=== PATIENT | male | born 1960 | race Two or more races ===

== ENCOUNTER 2017-02-06 10:13 | Emergency (ER) | payer MEDICAID ==
[~2017-02-06] VITALS: Ht 190.5 cm; Wt 122.5 kg
[2017-02-06] MEDS ORDERED: ETOMIDATE (2MG/ML) 20ML VIAL IV ONE (10:43)
[2017-02-06 10:59] VITALS: BP 145/91
== END 2017-02-06 12:10 | disposition home or self-care (01) ==
LOC: ER 10:13
DX: S43.005A Unspecified dislocation of left shoulder joint, initial encounter (principal); W17.2XXA Fall into hole, initial encounter; Y93.89 Activity, other specified; Y99.8 Other external cause status; Y92.89 Other specified places as the place of occurrence of the external cause
CPT/HCPCS: 23650; 73030; 99291; J7030

== ENCOUNTER 2019-08-13 11:08 | Emergency (ER) | payer MEDICAID ==
[~2019-08-13] VITALS: Ht 190.5 cm; Wt 126.6 kg
[2019-08-13 11:45] VITALS: BP 146/95
== END 2019-08-13 12:59 | disposition home or self-care (01) ==
LOC: ER 11:08
DX: M25.571 Pain in right ankle and joints of right foot (principal); Z48.01 Encounter for change or removal of surgical wound dressing

== ENCOUNTER 2019-09-01 06:49 | Emergency (ER) | payer MEDICAID ==
[~2019-09-01] VITALS: Ht 193 cm; Wt 124.7 kg
[2019-09-01 07:15] VITALS: BP 130/86
[2019-09-01] MEDS ORDERED: methylPREDNISolone SOD SUCC 125 MG/2 ML VL IM ONE (07:45)
[2019-09-01] MEDS ORDERED: LORATADINE 10 MG TAB PO ONE (07:45)
== END 2019-09-01 08:35 | disposition home or self-care (01) ==
LOC: ER 06:49
DX: R21 Rash and other nonspecific skin eruption (principal)
CPT/HCPCS: 96372; 99283; J2930

== ENCOUNTER → 2020-02-16 | Emergency (ER) | payer MEDICAID ==
[~2020-02-16] VITALS: Ht 190.5 cm; Wt 111.1 kg
[~2020-02-16] MED LIST: TETANUS-DIPTH-ACEL PERTUSSIS 0.5ML SYR Tdap IM ONE; cefTRIAXone 1GM/50ML D5W 50 ML IV ONE; cefTRIAXone W LIDOCAINE 1 GM IM IM ONE
[2020-02-16 18:28] VITALS: BP 130/88
== END | disposition short-term general hospital (02) ==
LOC: EDUNIT# 17:14 → EDBD 17:32 → ER 17:35
DX: S68.117A Complete traumatic metacarpophalangeal amputation of left little finger, initial encounter (principal); W45.8XXA Other foreign body or object entering through skin, initial encounter; Y93.89 Activity, other specified; Y92.9 Unspecified place or not applicable; Y99.9 Unspecified external cause status
CPT/HCPCS: 90471; 96374; 99285; J0696; 90715

== ENCOUNTER 2022-10-05 11:47 | Emergency (ER) | payer MEDICAID ==
[~2022-10-05] VITALS: Ht 190.5 cm; Wt 98.1 kg
[2022-10-05 14:42] LABS: Basophils # (auto) 0 10 ^3/uL (0-0.2); Basophils % (auto) 0.5 % (0.0-2.0); Eosinophils # (auto) 0 10 ^3/uL (0-0.8); Eosinophils % (auto) 0.3 % (0.0-7.0); Hematocrit 48.2 % (41.0-53.0); Hemoglobin 16.2 g/dL (13.5-17.5); Mean Corpuscular Hemoglobin 31.8 pg (28.0-32.0); Mean Corpuscular Hgb Conc. 33.7 g/dL (32.0-36.0); Mean Corpuscular Volume 94.4 fL (80.0-100.0); Monocytes # (auto) 0.4 10 ^3/uL (0-1.3); Monocytes % (auto) 5.5 % (0.0-12.0); Neutrophils # (auto) 4.6 10 ^3/uL (1.6-8.6); Neutrophils % (auto) 64.7 % (37.0-80.0); Nucleated Red Blood Cells % 0.1 %; Red Cell Distribution Width 13.3 % (11.8-14.3)
[2022-10-05 14:55] LABS: Calcium 9.2 mg/dL (8.5-10.1); Potassium 4.2 mmol/L (3.5-5.1)
[2022-10-05 14:55] LABS: Urine Bacteria NONE SEEN /hpf (None Seen); Urine Blood Negative /uL (Negative); Urine Specific Gravity 1.016 (1.001-1.035); Urine WBC 1 /hpf (0 - 3)
[2022-10-05 14:58] LABS: Albumin 4.4 g/dL (3.4-5.0); BUN/Creatinine Ratio 12.1
[2022-10-05 15:01] LABS: Bilirubin, Total 0.8 mg/dL (0.2-1.0); Total Protein 7.9 g/dL (6.4-8.2)
[2022-10-05] MEDS ORDERED: PANT40TA2 PO (15:07)
[2022-10-05] MEDS ORDERED: PRED10TA PO (15:07)
[2022-10-05] MEDS ORDERED: HYDR-4902 PO (15:07)
[2022-10-05] MEDS ORDERED: HYDROmorphone HCL 2 MG/ML VL/or syr IM ONE (15:15)
[2022-10-05] MEDS ORDERED: ONDANSETRON ODT 4 MG TAB PO ONE (15:15)
[2022-10-05 21:47] VITALS: BP 132/72
== END 2022-10-05 22:04 | disposition home or self-care (01) ==
LOC: ER 11:47
DX: M51.9 Unspecified thoracic, thoracolumbar and lumbosacral intervertebral disc disorder (principal); M54.50 Low back pain, unspecified
CPT/HCPCS: 36415; 72131; 74176; 80053; 81001; 82962; 84484; 85025; 96372; 99284; J1170; Q0162

== ENCOUNTER 2023-05-22 18:19 | Emergency (ER) | payer MEDICAID ==
[~2023-05-22] VITALS: Ht 190.5 cm; Wt 92.0 kg
[~2023-05-22 18:19] MED LIST changes: +HYDR-4902 PO; +PANT40TA2 PO; +PRED10TA PO; -TETANUS-DIPTH-ACEL PERTUSSIS 0.5ML SYR Tdap IM ONE; -cefTRIAXone 1GM/50ML D5W 50 ML IV ONE; -cefTRIAXone W LIDOCAINE 1 GM IM IM ONE
[2023-05-22 18:31] VITALS: BP 138/86
[2023-05-22] MEDS ORDERED: DIPH25CA66 PO (19:35)
[2023-05-22] MEDS ORDERED: diphenhdrAMINE HCL 25 MG CAP PO ONE (19:45)
== END 2023-05-22 21:03 | disposition home or self-care (01) ==
LOC: ER 18:19
DX: T78.40XA Allergy, unspecified, initial encounter (principal); E11.9 Type 2 diabetes mellitus without complications; F17.210 Nicotine dependence, cigarettes, uncomplicated; R10.9 Unspecified abdominal pain; L29.9 Pruritus, unspecified; M79.651 Pain in right thigh; Z79.1 Long term (current) use of non-steroidal anti-inflammatories (NSAID); Z79.899 Other long term (current) drug therapy; X58.XXXA Exposure to other specified factors, initial encounter

== ENCOUNTER 2024-03-03 15:58 | Emergency (ER) | payer MEDICAID ==
[~2024-03-03] VITALS: Ht 193 cm; Wt 82.5 kg
[~2024-03-03 15:58] MED LIST changes: +DIPH25CA66 PO
[2024-03-03 22:22] VITALS: BP 133/81; PULSE 84; RESP 16; TEMP 99.5; O2SAT 99
[2024-03-03] MEDS ORDERED: OFL50TS OT (23:01)
[2024-03-03] MEDS ORDERED: IBUP1TAB5 PO (23:01)
[2024-03-03] MEDS ORDERED: AUG875T PO (23:01)
[2024-03-03] MEDS ORDERED: CYCL-839 PO (23:01)
[2024-03-03] MEDS: HYDROcodone-ACET 5/325MG TAB PO ONE (23:37)
== END 2024-03-03 23:38 | disposition home or self-care (01) ==
LOC: ER 15:58
DX: M25.511 Pain in right shoulder (principal); M25.561 Pain in right knee; M62.830 Muscle spasm of back; H66.91 Otitis media, unspecified, right ear; E11.9 Type 2 diabetes mellitus without complications; F17.210 Nicotine dependence, cigarettes, uncomplicated
CPT/HCPCS: 72100; 73030; 73562

== ENCOUNTER 2024-07-09 12:01 | Inpatient (IN) | payer MEDICAID ==
[~2024-07-09] VITALS: Ht 172.7 cm; Wt 73.7 kg
[~2024-07-09 12:01] MED LIST changes: +AUG875T PO; +CYCL-839 PO; +IBUP1TAB5 PO; +OFL50TS OT
[2024-07-09 12:45] VITALS: PULSE 78; RESP 12; O2SAT 100
[2024-07-09 13:08] LABS: Basophils # (auto) 0 10 ^3/uL (0-0.2); Basophils % (auto) 0.5 % (0.0-2.0); Eosinophils # (auto) 0 10 ^3/uL (0-0.8); Eosinophils % (auto) 0.1 % (0.0-7.0); Hematocrit 38.7 % (41.0-53.0); Hemoglobin 13.4 g/dL (13.5-17.5); Lymphocytes # (auto) 1.5 10 ^3/uL (0.4-5.4); Lymphocytes % (auto) 33.8 % (10.0-50.0); Mean Corpuscular Hemoglobin 32.6 pg (28.0-32.0); Mean Corpuscular Hgb Conc. 34.7 g/dL (32.0-36.0); Mean Corpuscular Volume 93.7 fL (80.0-100.0); Monocytes # (auto) 0.3 10 ^3/uL (0-1.3); Monocytes % (auto) 5.8 % (0.0-12.0); Neutrophils # (auto) 2.6 10 ^3/uL (1.6-8.6); Neutrophils % (auto) 59.8 % (37.0-80.0); Nucleated Red Blood Cells % 0.1 %; Platelet Count (auto) 225 10^3/uL (140-450); Red Blood Cells 4.13 10^6/uL (4.5-5.90); Red Cell Distribution Width 13.7 % (11.8-14.3); White Blood Cell 4.4 10^3/uL (4.4-10.8)
[2024-07-09 13:24] LABS: Alanine Aminotransferase 10 U/L (7-40); Alkaline Phosphatase 45 U/L (46-116); Anion Gap 5 (5-15); Aspartate Aminotransferase 9 U/L (13-40); BUN/Creatinine Ratio 14.9 (10.0-20.0); Blood Urea Nitrogen 11 mg/dL (9-23); Calcium 9.6 mg/dL (8.7-10.4); Carbon Dioxide 27 mmol/L (20-30); Chloride 108 mmol/L (98-107); Glucose 118 mg/dL (74-106); Lipase 32 U/L (12-53); Potassium 3.8 mmol/L (3.5-5.1); Sodium 140 mmol/L (136-145)
[2024-07-09 13:25] LABS: Total Protein 6.7 g/dL (5.7-8.2)
[2024-07-09] MEDS: ONDANSETRON HCL 4 MG/2 ML VIAL IV ONE (14:48)
[2024-07-09] MEDS: SODIUM CHLORIDE 0.9% 1,000 ML IV ONE (14:48)
[2024-07-09] MEDS: MORPHINE SULFATE 4 MG/ML SYR/VIAL IV ONE (14:50)
[2024-07-09] MEDS: IOHEXOL 300 MG/ML 100ML BOTTLE IJ ONE (14:50)
[2024-07-09] MEDS ORDERED: ONDANSETRON HCL 4 MG/2 ML VIAL IV PRN (17:00)
[2024-07-09] MEDS ORDERED: ACETAMINOPHEN 325 MG TAB PO PRN (17:00)
[2024-07-09] MEDS: HYDROmorphone HCL 2 MG/ML VL/or syr IV PRN (17:42)
[2024-07-09 19:30] VITALS: PULSE 84; RESP 12; O2SAT 100
[2024-07-09] MEDS: SODIUM CHLOR 0.9% PF (SALINE LOCK) 10ML VIAL/SYR IV SCH (22:09)
[2024-07-10] VITALS (8 sets, daily range): BP systolic 94–129; BP diastolic 70–85; PULSE 72–82; RESP 16–20; TEMP 97.6–98.4; O2SAT 96–100
[2024-07-10] MEDS ORDERED: TRAM50TA2 PO (03:30)
[2024-07-10] MEDS ORDERED: METF-371 PO (03:30)
[2024-07-10] MEDS ORDERED: GABA-339 PO (03:30)
[2024-07-10] MEDS ORDERED: METF-1145 PO (03:30)
[2024-07-10 07:16] LABS: Basophils # (auto) 0 10 ^3/uL (0-0.2); Basophils % (auto) 0.9 % (0.0-2.0); Eosinophils # (auto) 0 10 ^3/uL (0-0.8); Eosinophils % (auto) 1.1 % (0.0-7.0); Hematocrit 39.3 % (41.0-53.0); Hemoglobin 13.6 g/dL (13.5-17.5); Lymphocytes % (auto) 47.1 % (10.0-50.0); Mean Corpuscular Hemoglobin 32.5 pg (28.0-32.0); Mean Corpuscular Hgb Conc. 34.5 g/dL (32.0-36.0); Mean Corpuscular Volume 94.3 fL (80.0-100.0); Monocytes # (auto) 0.3 10 ^3/uL (0-1.3); Monocytes % (auto) 6.2 % (0.0-12.0); Neutrophils # (auto) 1.9 10 ^3/uL (1.6-8.6); Neutrophils % (auto) 44.7 % (37.0-80.0); Nucleated Red Blood Cells % 0.1 %; Platelet Count (auto) 214 10^3/uL (140-450); Red Blood Cells 4.17 10^6/uL (4.5-5.90); Red Cell Distribution Width 13.6 % (11.8-14.3); White Blood Cell 4.3 10^3/uL (4.4-10.8)
[2024-07-10 07:30] LABS: Alkaline Phosphatase 45 U/L (46-116); Anion Gap 4 (5-15); Aspartate Aminotransferase 8 U/L (13-40); BUN/Creatinine Ratio 11.7 (10.0-20.0); Blood Urea Nitrogen 9 mg/dL (9-23); Calcium 9.4 mg/dL (8.7-10.4); Carbon Dioxide 27 mmol/L (20-30); Chloride 109 mmol/L (98-107); Glucose 122 mg/dL (74-106); Potassium 3.5 mmol/L (3.5-5.1); Sodium 140 mmol/L (136-145)
[2024-07-10 07:31] LABS: Bilirubin, Total 0.9 mg/dL (0.2-1.0); Total Protein 6.5 g/dL (5.7-8.2)
[2024-07-10 07:44] LABS: Alanine Aminotransferase < 9 U/L (7-40)
[2024-07-10] MEDS: HYDROcodone-ACET 5/325MG TAB PO PRN (07:57)
[2024-07-10] MEDS: ENOXAPARIN SOD 40 MG/0.4 ML SYRINGE SC SCH (09:48)
[2024-07-10 11:54] LABS: Folate (Folic Acid) 14.19 ng/mL (>5.38)
[2024-07-11] VITALS (7 sets, daily range): BP systolic 105–127; BP diastolic 68–84; PULSE 68–87; RESP 18–22; TEMP 97.5–98.4; O2SAT 98–100
[2024-07-11 06:14] LABS: Basophils # (auto) 0 10 ^3/uL (0-0.2); Basophils % (auto) 0.5 % (0.0-2.0); Eosinophils # (auto) 0.1 10 ^3/uL (0-0.8); Eosinophils % (auto) 1.7 % (0.0-7.0); Hematocrit 37.9 % (41.0-53.0); Hemoglobin 13.1 g/dL (13.5-17.5); Lymphocytes # (auto) 1.8 10 ^3/uL (0.4-5.4); Mean Corpuscular Hemoglobin 32.8 pg (28.0-32.0); Mean Corpuscular Hgb Conc. 34.7 g/dL (32.0-36.0); Mean Corpuscular Volume 94.7 fL (80.0-100.0); Monocytes # (auto) 0.3 10 ^3/uL (0-1.3); Monocytes % (auto) 6.2 % (0.0-12.0); Neutrophils # (auto) 1.9 10 ^3/uL (1.6-8.6); Neutrophils % (auto) 46.6 % (37.0-80.0); Nucleated Red Blood Cells % 0.1 %; Platelet Count (auto) 209 10^3/uL (140-450); Red Cell Distribution Width 13.9 % (11.8-14.3); White Blood Cell 4.1 10^3/uL (4.4-10.8)
[2024-07-11 06:32] LABS: Albumin 3.7 g/dL (3.2-4.8); Alkaline Phosphatase 41 U/L (46-116); Anion Gap 5 (5-15); Aspartate Aminotransferase 11 U/L (13-40); BUN/Creatinine Ratio 13.6 (10.0-20.0); Blood Urea Nitrogen 9 mg/dL (9-23); Carbon Dioxide 28 mmol/L (20-30); Chloride 107 mmol/L (98-107); Glucose 122 mg/dL (74-106); Potassium 3.4 mmol/L (3.5-5.1); Sodium 140 mmol/L (136-145)
[2024-07-11 06:33] LABS: Bilirubin, Total 0.8 mg/dL (0.2-1.0); Total Protein 6.2 g/dL (5.7-8.2)
[2024-07-11 06:41] LABS: Alanine Aminotransferase < 9 U/L (7-40)
[2024-07-11 07:34] LABS: Urine Bacteria FEW /hpf (None Seen); Urine Blood Negative /uL (Negative); Urine Clarity Clear (Clear); Urine Color Light-Yellow (Yellow); Urine Mucus FEW (None Seen); Urine Protein, UAD Negative (Negative); Urine Specific Gravity 1.014 (1.001-1.035); Urine Urobilinogen Normal (Negative); Urine WBC 11 /hpf (0 - 3); Urine pH 6.5 (5.0-9.0)
[2024-07-11 08:06] LABS: AFP Serum Tumor Marker 1.9 ng/mL (0.0-8.4); PSA Free 0.06 ng/mL; Prostate Specific Antigen 0.3 ng/mL (0.0-4.0)
[2024-07-11] MEDS: POTASSIUM CHL 20 Meq TABLET PO ONE (09:14)
[2024-07-11] MEDS: MORPHINE SULFATE INJ 2 MG/ml SYRG IV PRN (14:42)
[2024-07-11] MEDS: DOCUSATE SOD 100 MG CAP PO PRN (15:28)
[2024-07-12] VITALS (7 sets, daily range): BP systolic 101–135; BP diastolic 69–86; PULSE 69–85; RESP 18–22; TEMP 97.8–98.3; O2SAT 99–100
[2024-07-12 06:42] LABS: Basophils # (auto) 0 10 ^3/uL (0-0.2); Basophils % (auto) 0.6 % (0.0-2.0); Eosinophils # (auto) 0.1 10 ^3/uL (0-0.8); Eosinophils % (auto) 1.8 % (0.0-7.0); Hematocrit 37.7 % (41.0-53.0); Hemoglobin 13.6 g/dL (13.5-17.5); Lymphocytes # (auto) 2.1 10 ^3/uL (0.4-5.4); Lymphocytes % (auto) 50.6 % (10.0-50.0); Mean Corpuscular Hemoglobin 33.7 pg (28.0-32.0); Mean Corpuscular Volume 93.5 fL (80.0-100.0); Monocytes # (auto) 0.3 10 ^3/uL (0-1.3); Monocytes % (auto) 7.2 % (0.0-12.0); Neutrophils # (auto) 1.7 10 ^3/uL (1.6-8.6); Neutrophils % (auto) 39.8 % (37.0-80.0); Nucleated Red Blood Cells % 0.1 %; Platelet Count (auto) 202 10^3/uL (140-450); Red Blood Cells 4.03 10^6/uL (4.5-5.90); White Blood Cell 4.2 10^3/uL (4.4-10.8)
[2024-07-12 07:07] LABS: Albumin 3.9 g/dL (3.2-4.8); Alkaline Phosphatase 43 U/L (46-116); Anion Gap 5 (5-15); BUN/Creatinine Ratio 8.5 (10.0-20.0); Blood Urea Nitrogen 6 mg/dL (9-23); Calcium 9.7 mg/dL (8.7-10.4); Carbon Dioxide 27 mmol/L (20-30); Chloride 106 mmol/L (98-107); Glucose 125 mg/dL (74-106); Potassium 3.8 mmol/L (3.5-5.1); Sodium 138 mmol/L (136-145)
[2024-07-12 07:08] LABS: Aspartate Aminotransferase 10 U/L (13-40); Bilirubin, Total 0.8 mg/dL (0.2-1.0); Total Protein 6.3 g/dL (5.7-8.2)
[2024-07-12 07:10] LABS: Alanine Aminotransferase < 9 U/L (7-40)
[2024-07-12] MEDS ORDERED: IOHEXOL 300 MG/ML 100ML BOTTLE IJ ONE (12:25)
[2024-07-12] MEDS ORDERED: traMADol HCL 50 MG TAB PO PRN (13:45)
[2024-07-12] MEDS ORDERED: GABAPENTIN 300 MG CAP PO SCH (14:00)
[2024-07-12] MEDS ORDERED: GADOTERATE MEG 7.5 MMOL/15ml INJ (0.5MMOL/ml) IV ONE (15:24)
[2024-07-12] MEDS: GABAPENTIN 300 MG CAP PO SCH (16:38)
[2024-07-13 01:00] VITALS: BP 94/64; PULSE 77; RESP 18; TEMP 97.6; O2SAT 100
[2024-07-13 05:00] VITALS: BP 116/77; PULSE 76; RESP 16; TEMP 98.1; O2SAT 99
[2024-07-13 07:06] LABS: Basophils # (auto) 0 10 ^3/uL (0-0.2); Basophils % (auto) 0.4 % (0.0-2.0); Eosinophils # (auto) 0.1 10 ^3/uL (0-0.8); Eosinophils % (auto) 1.4 % (0.0-7.0); Hematocrit 37.6 % (41.0-53.0); Hemoglobin 13.2 g/dL (13.5-17.5); Lymphocytes # (auto) 2.3 10 ^3/uL (0.4-5.4); Lymphocytes % (auto) 46.9 % (10.0-50.0); Mean Corpuscular Hemoglobin 33.6 pg (28.0-32.0); Mean Corpuscular Hgb Conc. 35.3 g/dL (32.0-36.0); Mean Corpuscular Volume 95.2 fL (80.0-100.0); Monocytes # (auto) 0.3 10 ^3/uL (0-1.3); Monocytes % (auto) 6.2 % (0.0-12.0); Neutrophils # (auto) 2.3 10 ^3/uL (1.6-8.6); Neutrophils % (auto) 45.1 % (37.0-80.0); Platelet Count (auto) 212 10^3/uL (140-450); Red Blood Cells 3.94 10^6/uL (4.5-5.90); Red Cell Distribution Width 13.5 % (11.8-14.3)
[2024-07-13 07:18] LABS: Albumin 4.1 g/dL (3.2-4.8); Alkaline Phosphatase 44 U/L (46-116); Anion Gap 3 (5-15); Aspartate Aminotransferase 8 U/L (13-40); BUN/Creatinine Ratio 10.5 (10.0-20.0); Blood Urea Nitrogen 8 mg/dL (9-23); Calcium 9.2 mg/dL (8.7-10.4); Carbon Dioxide 29 mmol/L (20-30); Chloride 108 mmol/L (98-107); Glucose 118 mg/dL (74-106); Magnesium 2.1 mg/dL (1.6-2.6); Potassium 3.8 mmol/L (3.5-5.1); Sodium 140 mmol/L (136-145)
[2024-07-13 07:19] LABS: Bilirubin, Total 0.6 mg/dL (0.2-1.0); Total Protein 6.4 g/dL (5.7-8.2)
[2024-07-13 07:40] LABS: Alanine Aminotransferase < 9 U/L (7-40)
[2024-07-13 09:00] VITALS: BP 124/80; PULSE 69; RESP 20; TEMP 98.3; O2SAT 99
[2024-07-13 12:41] VITALS: BP 109/69; PULSE 83; RESP 17; TEMP 98.7; O2SAT 95
[2024-07-13] MEDS: HYDROcodone-ACET 7.5/325MG TAB PO PRN (16:42)
[2024-07-13 17:08] VITALS: BP 110/68; PULSE 85; RESP 17; TEMP 98.3; O2SAT 99
[2024-07-13 17:34] VITALS: BP 109/69; PULSE 83; RESP 17; TEMP 98.7; O2SAT 95
== END 2024-07-13 18:48 | disposition home or self-care (01) | DRG 347 ==
LOC: ER 12:01 → EDBD 12:01 → OVERFLOW 16:56 → EAST 23:52 → OVERFLOW 07-10 00:05 → WEST WING 07-10 01:40
PROVIDERS: ATTEND Internal Medicine Geriatric Medicine
DX: M48.07 Spinal stenosis, lumbosacral region (principal); K76.89 Other specified diseases of liver; E11.9 Type 2 diabetes mellitus without complications; D75.89 Other specified diseases of blood and blood-forming organs; D18.03 Hemangioma of intra-abdominal structures; F17.210 Nicotine dependence, cigarettes, uncomplicated; M51.36 Other intervertebral disc degeneration, lumbar region; M47.896 Other spondylosis, lumbar region; K59.00 Constipation, unspecified; Z79.84 Long term (current) use of oral hypoglycemic drugs; Z79.899 Other long term (current) drug therapy
CPT/HCPCS: 36415; 71046; 71260; 72146; 72148; 74177; 74183; 80053; 81001; 82105; 82378; 82607; 82746; 82962; 83036; 83690; 83735; 84154; 84443; 84484; 85025; 86301; 93005; 96374; 96375; G0378; J2405

== ENCOUNTER 2024-08-25 17:44 | Emergency (ER) | payer MEDICAID ==
[~2024-08-25] VITALS: Ht 193 cm; Wt 65.0 kg
[~2024-08-25 17:44] MED LIST changes: -AUG875T PO; -CYCL-839 PO; -DIPH25CA66 PO; +GABA-339 PO; +METF-371 PO; -OFL50TS OT; -PRED10TA PO
[2024-08-25 20:31] LABS: Basophils # (auto) 0 10 ^3/uL (0-0.2); Basophils % (auto) 0.6 % (0.0-2.0); Eosinophils # (auto) 0 10 ^3/uL (0-0.8); Eosinophils % (auto) 0.7 % (0.0-7.0); Hematocrit 40.5 % (41.0-53.0); Hemoglobin 13.6 g/dL (13.5-17.5); Lymphocytes # (auto) 2.3 10 ^3/uL (0.4-5.4); Lymphocytes % (auto) 46.9 % (10.0-50.0); Mean Corpuscular Hemoglobin 32.2 pg (28.0-32.0); Mean Corpuscular Hgb Conc. 33.5 g/dL (32.0-36.0); Monocytes # (auto) 0.3 10 ^3/uL (0-1.3); Monocytes % (auto) 5.1 % (0.0-12.0); Neutrophils # (auto) 2.3 10 ^3/uL (1.6-8.6); Neutrophils % (auto) 46.7 % (37.0-80.0); Nucleated Red Blood Cells % 0.1 %; Platelet Count (auto) 217 10^3/uL (140-450); Red Blood Cells 4.22 10^6/uL (4.5-5.90); Red Cell Distribution Width 13.5 % (11.8-14.3)
[2024-08-25 20:40] LABS: Albumin 4.5 g/dL (3.2-4.8); Alkaline Phosphatase 51 U/L (46-116); Anion Gap 5 (5-15); Aspartate Aminotransferase 10 U/L (13-40); BUN/Creatinine Ratio 20.7 (10.0-20.0); Blood Urea Nitrogen 17 mg/dL (9-23); Calcium 9.7 mg/dL (8.7-10.4); Carbon Dioxide 27 mmol/L (20-31); Chloride 108 mmol/L (98-107); Glucose 100 mg/dL (74-106); Potassium 3.6 mmol/L (3.5-5.1); Sodium 140 mmol/L (136-145)
[2024-08-25 20:41] LABS: Bilirubin, Total 0.6 mg/dL (0.2-1.0); Total Protein 7.1 g/dL (5.7-8.2)
[2024-08-25 20:46] LABS: Alanine Aminotransferase 14 U/L (7-40)
[2024-08-25] MEDS ORDERED: GABA-1250 PO (21:49)
[2024-08-25] MEDS ORDERED: HYDROcodone-ACET 5/325MG TAB PO ONE (22:00)
[2024-08-25 22:14] VITALS: BP 167/93; PULSE 83; RESP 18; TEMP 98.5; O2SAT 97
[2024-08-25] MEDS: KETOROLAC TROMETH 60MG/2ML VIAL IM ONE (22:29)
== END 2024-08-25 22:32 | disposition home or self-care (01) ==
LOC: EDBD 17:44 → ER 17:44
DX: E11.40 Type 2 diabetes mellitus with diabetic neuropathy, unspecified (principal); R07.89 Other chest pain; M79.89 Other specified soft tissue disorders; Z79.84 Long term (current) use of oral hypoglycemic drugs; Z79.899 Other long term (current) drug therapy
CPT/HCPCS: 36415; 80053; 85025; 96372; 99283; J1885

== ENCOUNTER 2025-01-19 02:53 | Inpatient (IN) | payer MEDICAID ==
[~2025-01-19] VITALS: Ht 175.3 cm; Wt 73.2 kg
[~2025-01-19 02:53] MED LIST changes: +GABA-1250 PO
[2025-01-19] MEDS: IOHEXOL 300 MG/ML 100ML BOTTLE IJ ONE (03:41)
--- NOTE | 2025-01-19 03:50 | ED.PDOC ---
History of Present Illness HPI Comments 64 y/o M, with a history of DMII and H. Pylori, is BIBA for c/o abdominal pain, nausea, vomiting, and poor appetite, today. Per EMS report, patient is a Swedish speaker and endorses on having ongoing symptoms, that worsened, this morning, following unprovoked onset for the past 5x days. He comments on his pain being localized to his bilateral lower quadrants and it being non-radiating, describes it a pressure-like in quality, and rates it a 10/10 in severity. Patient further reports on vomiting "whenever he drinks fluids at night, only" and not eating anything for 5x days, due to poor appetite. Patients vitals were reported to have been stable and within normal limits, with a blood glucose of 130. He denies any hematemesis, diarrhea, constipation, urinary symptoms, fever, chills, or other associated symptoms or modifiers at this time. Chief Complaint: Abdominal Pain Time Seen by MD: 03:30 Primary Care Provider: UNKNOWN Reviewed Notes: Nurses Notes, Emulsion Operator Notes, Medications, Allergies Allergies: Coded Allergies: NO KNOWN ALLERGIES (Unverified , 10/26/10) Home Meds Active Scripts Gabapentin (Gabapentin) 300 Mg Cap, 1 CAP PO TID for 30 Days, #90 CAP 5 Refills Prov:JOSE LUIS MOYA MD 08/25/24 Ibuprofen Micronized (Ibuprofen) 600 Mg Tab, 1 TAB PO Q8HPRN PRN, #20 TAB As needed for pain Prov:MODESTO GREEN Q RANGE MASTER 03/03/24 Hydrocodone-Acetaminophen (Hydrocodone Bitartrate/AC 5-325 mg) 1 Tab Tab, 1 TAB PO DAILY for 5 Days, #5 TAB Prov:SUZY GALE MD 10/05/22 Pantoprazole Sodium Sesquihydr (Protonix) 40 Mg Tab, 40 MG PO DAILY for 10 Days, #10 TAB Prov:SUZY GALE MD 10/05/22 Reported Medications Gabapentin (Gabapentin) 600 Mg Tab, 1 TAB PO TID 07/10/24 Metformin Hydrochloride (Metformin Hcl) 850 Mg Tab, 1 TAB PO BID 07/10/24 Information Source: Patient, Emergency Med Personnel Mode of Arrival: EMS Severity: Moderate Timing: Days Duration: Since onset Prehospital treatment: 12 Lead EKG, Rn Radiology Past Medical History PAST MEDICAL HISTORY: DM (type II) Past Medical History (Other): H. Pylori DDD Surgical History: Denies all surgeries Family History Family History: Reviewed,noncontributory to illness Social History Smoker: Cigarettes Alcohol: Occasionally Drugs: Denies Drug Use Lives In: Home Gastrointestinal: reports: abdominal pain, nausea, poor appetite, vomiting All Other Systems: Reviewed and Negative (negative unless otherwise stated above or in HPI) Physical Exam General Appearance: No Apparent Distress, Other (chronically ill-appearing ) HEENT: Normal ENT Inspection, Pharynx Normal, TMs Normal Neck: Full Range of Motion, Non-Tender, Normal, Normal Inspection Respiratory: Chest Non-Tender, Lungs Clear, No Accessory Muscle Use, No Respiratory Distress, Normal Breath Sounds Cardiovascular: No Edema, No JVD, No Murmur, No Gallop, Normal Peripheral Pulse s, Regular Rate/Rhythm Breast Exam: Deferred Gastrointestinal: No Organomegaly, Non Tender, No Pulsatile Mass, Normal Bowel Sounds, Soft Genitalia: Deferred Pelvic: Deferred Rectal: Deferred Extremities: No calf tenderness, Normal capillary refill, Normal inspection, Normal range of motion, Non-tender, No pedal edema Musculoskeletal : Apperance: Normal Neurologic: Alert, brush cutter II-XII nml as Tested, No Motor Deficits, Normal Affect, Normal Mood, No Sensory Deficits Cerebellar Function: Normal Reflexes: Normal Skin: Dry, Normal Color, Warm Lymphatic: No Adenopathy Was a procedure done? Was a procedure done?: No Differential Dx Considerations may include: gastritis, gastroenteritis, PID, bowl obstruction, diverticulitis, appendicitis, cystitis, nephrolithiasis, malnutrition, dehydration X-Ray, Labs, Meds, VS Vital Signs Date Time Temp Pulse Resp B/P (MAP) Pulse Ox O2 Delivery O2 Flow Rate FiO2 01/19/25 04:31 70 17 134/92 01/19/25 04:28 98.1 70 17 134/92 (106) 98 98.1 01/19/25 04:17 98.6 72 16 133/82 (99) 96 98.6 01/19/25 04:17 72 16 96 Room Air 01/19/25 03:14 98.6 72 16 133/82 (99) 96 Lab Test 01/19/25 03:37 Range/Units White Blood Count 6.1 4.4-10.8 10^3/uL Red Blood Count 4.60 4.5-5.90 10^6/uL Hemoglobin 15.3 13.5-17.5 g/dL Hematocrit 43.7 41.0-53.0 % Mean Corpuscular Volume 95.0 80.0-100.0 fL Mean Corpuscular Hemoglobin 33.4 H 28.0-32.0 pg Mean Corpuscular Hemoglobin Concent 35.1 32.0-36.0 g/dL Red Cell Distribution Width 13.4 11.8-14.3 % Platelet Count 218 140-450 10^3/uL Mean Platelet Volume 8.1 6.9-10.8 fL Neutrophils (%) (Auto) 58.1 37.0-80.0 % Lymphocytes (%) (Auto) 35.4 10.0-50.0 % Monocytes (%) (Auto) 6.2 0.0-12.0 % Eosinophils (%) (Auto) 0.1 0.0-7.0 % Basophils (%) (Auto) 0.2 0.0-2.0 % Neutrophils # (Auto) 3.5 1.6-8.6 10 ^3/uL Lymphocytes # (Auto) 2.1 0.4-5.4 10 ^3/uL Monocytes # (Auto) 0.4 0-1.3 10 ^3/uL Eosinophils # (Auto) 0 0-0.8 10 ^3/uL Basophils # (Auto) 0 0-0.2 10 ^3/uL Nucleated Red Blood Cells 0.1 % Sodium Level 137 136-145 mmol/L Potassium Level 2.4 *L 3.5-5.1 mmol/L Chloride Level 94 L 98-107 mmol/L Carbon Dioxide Level 31 20-31 mmol/L Anion Gap 12 5-15 Blood Urea Nitrogen 12 9-23 mg/dL Creatinine 0.73 0.700-1.30 mg/dL Glomerular Filtration Rate Calc 102 >90 mL/min BUN/Creatinine Ratio 16.4 10.0-20.0 Serum Glucose 134 H 74-106 mg/dL Calcium Level 10.4 8.7-10.4 mg/dL Total Bilirubin 1.5 H 0.2-1.0 mg/dL Aspartate Amino Transferase (AST) 13 13-40 U/L Alanine Aminotransferase (ALT) 11 7-40 U/L Alkaline Phosphatase 52 46-116 U/L Total Protein 7.8 5.7-8.2 g/dL Albumin 4.9 H 3.2-4.8 g/dL Lipase 38 12-53 U/L Current Medications Medications (Trade) Dose Ordered Sig/Devan Route Start Time Stop Time Status Last Admin Sodium Chloride 1,000 ml @ 1,000 mls/hr Q1H ONCE IV 01/19/25 03:30 01/19/25 04:29 DC 01/19/25 04:17 Ondansetron HCl (Zofran) 4 mg ONCE ONCE IV 01/19/25 03:30 01/19/25 03:31 DC 01/19/25 04:26 Morphine Sulfate 4 mg ONCE ONCE IV 01/19/25 03:30 01/19/25 03:31 DC 01/19/25 04:31 Time of 1ST Reevaluation: 04:00 Reevaluation 1ST: Unchanged Patient Education/Counseling: Diagnosis, Treatment Family Education/Counseling: No Family Present Departure 1 Departure Time of Disposition: 05:45 (Patient presented with abdominal pain that was concerning for possible appendicits, gastritis, cholecystitis, colitis, gastroenteritis, sbo, or orther possible surgical emergency. Data: 1. I ordered and reviewed the result of at least 3 labs including a CBC, BMP, and Urinalysis. 2. I independently interpreted the following tests: CT Abdoment and Pelvis is concerning for a dilated CBD .Risk:This patient has a high risk of morbidity due to further diagnostic testing or treatment and may suffer from an acute abdominal process disorder. Workup reveals intractable abdominal pain and dilated CBD. We will admit patient for MRCP and patient should be admitted for further workup. and possible expert consultation. ) Impression: Primary Impression: Intractable abdominal pain Additional Impression: Projectile vomiting with nausea Disposition: ADMITTED INPATIENT Admit to: Med Surg Condition: Serious Critical Care Note Critical Care Time?: Yes Critical care comment: Intractable abdominal pain Authorized and Performed by: Jose Estrada MD Total critical care time: Approximately 44 minutes Due to a high probability of clinically significant, life threatening deterioration, the patient required my highest level of preparedness to intervene emergently and I personally spent this critical care time directly and personally managing the patient. This critical care time included obtaining a history; examining the patient; pulse oximetry; ordering and review of studies; arranging urgent treatment with development of a management plan; evaluation of patient's response to treatment; frequent reassessment; and, discussions with other providers. This critical care time was performed to assess and manage the high probability of imminent, life-threatening deterioration that could result in multi-organ failure. It was exclusive of separately billable procedures and treating other patients and teaching time. Please see my other sections and the rest of the note for further information on patient assessment and treatment. Stability Stability form required: No Heart Score Heart Score: Heart Score Response (Comments) Value History N/A 0 EKG N/A 0 Age N/A 0 Risk Factors N/A 0 Troponin N/A 0 Total 0 I personally scribed for JOSE ESTRADA MD ([email or web address]) on 01/19/25 at 03:50. Electronically submitted by Stanley Marie ([email or web address]). JOSE ESTRADA MD Jan 19, 2025 03:50
[2025-01-19 04:01] LABS: Basophils # (auto) 0 10 ^3/uL (0-0.2); Basophils % (auto) 0.2 % (0.0-2.0); Eosinophils # (auto) 0 10 ^3/uL (0-0.8); Eosinophils % (auto) 0.1 % (0.0-7.0); Hematocrit 43.7 % (41.0-53.0); Hemoglobin 15.3 g/dL (13.5-17.5); Lymphocytes # (auto) 2.1 10 ^3/uL (0.4-5.4); Lymphocytes % (auto) 35.4 % (10.0-50.0); Mean Corpuscular Hemoglobin 33.4 pg (28.0-32.0); Mean Corpuscular Hgb Conc. 35.1 g/dL (32.0-36.0); Monocytes # (auto) 0.4 10 ^3/uL (0-1.3); Monocytes % (auto) 6.2 % (0.0-12.0); Neutrophils # (auto) 3.5 10 ^3/uL (1.6-8.6); Neutrophils % (auto) 58.1 % (37.0-80.0); Nucleated Red Blood Cells % 0.1 %; Platelet Count (auto) 218 10^3/uL (140-450); Red Cell Distribution Width 13.4 % (11.8-14.3); White Blood Cell 6.1 10^3/uL (4.4-10.8)
[2025-01-19 04:16] LABS: Alanine Aminotransferase 11 U/L (7-40); Alkaline Phosphatase 52 U/L (46-116); Anion Gap 12 (5-15); Aspartate Aminotransferase 13 U/L (13-40); BUN/Creatinine Ratio 16.4 (10.0-20.0); Blood Urea Nitrogen 12 mg/dL (9-23); Calcium 10.4 mg/dL (8.7-10.4); Carbon Dioxide 31 mmol/L (20-31); Lipase 38 U/L (12-53); Sodium 137 mmol/L (136-145); Total Protein 7.8 g/dL (5.7-8.2)
[2025-01-19] MEDS: SODIUM CHLORIDE 0.9% 1,000 ML IV ONE (04:17)
[2025-01-19] MEDS: ONDANSETRON HCL 4 MG/2 ML VIAL IV ONE (04:26)
[2025-01-19 04:30] LABS: Albumin 4.9 g/dL (3.2-4.8); Bilirubin, Total 1.5 mg/dL (0.2-1.0); Chloride 94 mmol/L (98-107); Glucose 134 mg/dL (74-106)
[2025-01-19 04:31] LABS: Potassium 2.4 mmol/L (3.5-5.1)
[2025-01-19] MEDS: MORPHINE SULFATE 4 MG/ML SYR/VIAL IV ONE (04:31)
--- NOTE | 2025-01-19 05:37 | DVH ---
Exam: CT CT AB PEL WITH IV CON ONLY History: abdominal pain Comparison Study: CT scan of the abdomen pelvis performed on 07/09/2024. Technique: Multidetector spiral CT of the abdomen was performed from lung bases to pubic symphysis. A xial imaging was performed with intravenous contrast following the uneventful administration of 100 m l Omnipaque 300. Coronal and sagittal multiplanar reformats were obtained from the axial data set by the technologist. Radiation Dose : 1. Abdomen/Pelvis: CTDIvol 7.3 mGy, DLP 383 mGy*cm. Findings: Lung Bases: Lung bases are clear. Visualized portions of the heart and pericardium are unremarkable. Liver: The liver is normal in size. 2.7 cm enhancing mass in the right lobe which may reflect a edwin ngioma. Gallbladder and Biliary Tree: The gallbladder is unremarkable. The common bile duct is dilated measur ing 7 mm at the ampulla. Main pancreatic duct is dilated measuring 6 mm. Spleen: Unremarkable Pancreas: The pancreas enhances normally and there are no focal lesions. The main pancreatic duct is not dilated Adrenal Glands: Unremarkable Kidneys: Kidneys enhance symmetrically. No calculi or hydronephrosis. GI tract: The stomach is grossly normal in appearance.. No evidence of small bowel wall thickening or abnormal dilatation to suggest bowel obstruction. The colon is unremarkable. The appendix is not vis ualized, however no inflammatory changes in the right lower quadrant to suggest acute appendicitis. Peritoneum/mesentery/retroperitoneum. No evidence of free intraperitoneal air. No ascites. No evidenc e of suspicious lymphadenopathy. Abdominal Wall: Unremarkable. Vasculature: Abdominal aorta and main branches are unremarkable. Normal vascular enhancement. Urinary Bladder: Grossly unremarkable for degree of distention. Pelvic Organs: Unremarkable Musculoskeletal: No aggressive focal bony lesions, acute fractures or dislocation. IMPRESSION: 1. Dilated common bile duct and main pancreatic duct. No filling defect identified. MRCP is recomme nded for further evaluation. 2. 2.7 cm right hepatic lobe hemangioma.
[2025-01-19] MEDS: POTASSIUM CHL 20MEQ/100ML 100 ML IV SCH (05:48)
[2025-01-19 06:15] VITALS: PULSE 86; RESP 19; O2SAT 98
[2025-01-19 07:30] VITALS: PULSE 68; RESP 20; O2SAT 98
[2025-01-19] MEDS ORDERED: ONDANSETRON HCL 4 MG/2 ML VIAL IV PRN (07:30)
[2025-01-19] MEDS ORDERED: ACETAMINOPHEN 325 MG TAB PO PRN (07:30)
[2025-01-19] MEDS ORDERED: MORPHINE SULFATE INJ 2 MG/ml SYRG IV PRN (07:30)
[2025-01-19] MEDS ORDERED: NITROGLYCERIN 0.4 MG SL TAB SL PRN (07:30)
--- NOTE | 2025-01-19 07:31 | DVHHP2 ---
History of Present Illness Reason for Visit: Abdominal pain History of Present Illness Jeffery Hardin is a 64-year-old male with past medical history of diabetes, H pylori, and DDD who presents to the ED with nausea, vomiting, abdominal pain and inability to have a bowel movement x5 days. Patient reports that the pain radiates from his abdomen to his left lower extremity states that the pain is 10/10 pressure-like and constant. He also reports that the last time he saw his physician was a month ago. Patient reports that he uses a cane with ambulation. He reports that this abdominal pain has been ongoing for the last several months with no relief. Patient denies any chest pain, shortness of breath, fever, chills, recent trauma or injury, diarrhea, lightheadedness, weakness, and dizziness. Endocrine: Diabetes Past Medical History DDD H pylori Past Surgical History: None Family History: None Smoke: <1 pack per day ALCOHOL: occassional Drugs: None Lives: with Family Domestic Violence: Neg Review of Systems Gastrointestinal: Nausea, Vomiting, Abdominal Pain, Constipation Allergies: Coded Allergies: NO KNOWN ALLERGIES (Unverified , 10/26/10) Medications Current Medications Medications Dose Ordered Sig/Devan Route Start Time Stop Time Status Last Admin Dose Admin Potassium Chloride 100 ml @ 50 mls/hr Q2H IV 01/19/25 05:30 01/19/25 13:29 01/19/25 05:48 50 MLS/HR Exam Vital Signs Vital Signs Date Time Temp Pulse Resp B/P (MAP) Pulse Ox O2 Delivery O2 Flow Rate FiO2 01/19/25 06:15 86 19 98 Room Air* 0 21 01/19/25 06:00 110/74 (86) 01/19/25 04:28 98.1 98.1 General Appearance: Alert, Oriented X3, Cooperative, No acute distress HEENT: Atraumatic, PERRLA, EOMI, Mucous membr. moist/pink Respiratory: Clear to auscultation, Normal air movement Cardiovascular: Regular rate, Normal S1, Normal S2, No murmurs Abdominal: Soft Extremities: No clubbing, No cyanosis, No edema, Normal pulses, No tendernes s/swelling Skin: No breakdown, No significant lesion Neuro: Normal speech, Normal tone, Sensation intact Psych/Mental Status: Mental status NL, Mood NL Labs/Xrays Labs Test 01/19/25 03:37 Range/Units White Blood Count 6.1 4.4-10.8 10^3/uL Red Blood Count 4.60 4.5-5.90 10^6/uL Hemoglobin 15.3 13.5-17.5 g/dL Hematocrit 43.7 41.0-53.0 % Mean Corpuscular Volume 95.0 80.0-100.0 fL Mean Corpuscular Hemoglobin 33.4 H 28.0-32.0 pg Mean Corpuscular Hemoglobin Concent 35.1 32.0-36.0 g/dL Red Cell Distribution Width 13.4 11.8-14.3 % Platelet Count 218 140-450 10^3/uL Mean Platelet Volume 8.1 6.9-10.8 fL Neutrophils (%) (Auto) 58.1 37.0-80.0 % Lymphocytes (%) (Auto) 35.4 10.0-50.0 % Monocytes (%) (Auto) 6.2 0.0-12.0 % Eosinophils (%) (Auto) 0.1 0.0-7.0 % Basophils (%) (Auto) 0.2 0.0-2.0 % Neutrophils # (Auto) 3.5 1.6-8.6 10 ^3/uL Lymphocytes # (Auto) 2.1 0.4-5.4 10 ^3/uL Monocytes # (Auto) 0.4 0-1.3 10 ^3/uL Eosinophils # (Auto) 0 0-0.8 10 ^3/uL Basophils # (Auto) 0 0-0.2 10 ^3/uL Nucleated Red Blood Cells 0.1 % Sodium Level 137 136-145 mmol/L Potassium Level 2.4 *L 3.5-5.1 mmol/L Chloride Level 94 L 98-107 mmol/L Carbon Dioxide Level 31 20-31 mmol/L Anion Gap 12 5-15 Blood Urea Nitrogen 12 9-23 mg/dL Creatinine 0.73 0.700-1.30 mg/dL Glomerular Filtration Rate Calc 102 >90 mL/min BUN/Creatinine Ratio 16.4 10.0-20.0 Serum Glucose 134 H 74-106 mg/dL Calcium Level 10.4 8.7-10.4 mg/dL Total Bilirubin 1.5 H 0.2-1.0 mg/dL Aspartate Amino Transferase (AST) 13 13-40 U/L Alanine Aminotransferase (ALT) 11 7-40 U/L Alkaline Phosphatase 52 46-116 U/L Total Protein 7.8 5.7-8.2 g/dL Albumin 4.9 H 3.2-4.8 g/dL Lipase 38 12-53 U/L Exam: CT CT AB PEL WITH IV CON ONLY History: abdominal pain Comparison Study: CT scan of the abdomen pelvis performed on 07/09/2024. Technique: Multidetector spiral CT of the abdomen was performed from lung bases to pubic symphysis. Axial imaging was performed with intravenous contrast following the uneventful administration of 100 ml Omnipaque 300. Coronal and sagittal multiplanar reformats were obtained from the axial data set by the technologist. Radiation Dose : 1. Abdomen/Pelvis: CTDIvol 7.3 mGy, DLP 383 mGy*cm. Findings: Lung Bases: Lung bases are clear. Visualized portions of the heart and pericar dium are unremarkable. Liver: The liver is normal in size. 2.7 cm enhancing mass in the right lobe which may reflect a hemangioma. Gallbladder and Biliary Tree: The gallbladder is unremarkable. The common bile duct is dilated measuring 7 mm at the ampulla. Main pancreatic duct is dilated measuring 6 mm. Spleen: Unremarkable Pancreas: The pancreas enhances normally and there are no focal lesions. The main pancreatic duct is not dilated Adrenal Glands: Unremarkable Kidneys: Kidneys enhance symmetrically. No calculi or hydronephrosis. GI tract: The stomach is grossly normal in appearance.. No evidence of small bowel wall thickening or abnormal dilatation to suggest bowel obstruction. The colon is unremarkable. The appendix is not visualized, however no inflammatory changes in the right lower quadrant to suggest acute appendicitis. Peritoneum/mesentery/retroperitoneum. No evidence of free intraperitoneal air. No ascites. No evidence of suspicious lymphadenopathy. Abdominal Wall: Unremarkable. Vasculature: Abdominal aorta and main branches are unremarkable. Normal vascular enhancement. Urinary Bladder: Grossly unremarkable for degree of distention. Pelvic Organs: Unremarkable Musculoskeletal: No aggressive focal bony lesions, acute fractures or dislocation. IMPRESSION: 1. Dilated common bile duct and main pancreatic duct. No filling defect identified. MRCP is recommended for further evaluation. 2. 2.7 cm right hepatic lobe hemangioma. Assessment/Plan Assessment/Plan Assessment Intractable abdominal pain with nausea and vomiting Constipation Hypokalemia Hyperbilirubinemia Dilated common bile duct and main pancreatic duct 2.7 cm right hepatic lobe hemangioma ETOH abuse Tobacco use History of diabetes type 2 History of H pylori History of DDD Plan Admit to telemetry Replete lytes Hemoglobin A1c ISS and Accu-Cheks Antiemetics Pain management IV fluids CT abdomen and pelvis Lipase UA MRCP Continue home medications GI consult NPO for now Potassium level Counseled patient on cessation of tobacco use Counseled patient on cessation of EtOH use Plan discussed with: Patient Date of Service: Jan 19, 2025 Billing Provider: GORDON JACKSON Common Visit Codes: [id number] INP/OBS CARE (HIGH) GORDON JACKSON Jan 19, 2025 07:31
[2025-01-19] MEDS ORDERED: DEXTROSE (50%) 50ML SYRG IV PRN (07:45)
[2025-01-19] MEDS: SODIUM CHLORIDE 0.9% 1,000 ML IV SCH (08:14)
[2025-01-19] MEDS: InsuLIN REG 1unit/0.01ml Soln (100units/ml) SC SCH (11:30)
[2025-01-19] MEDS: ACCU-CHEK COMFORT CURVE STRIP VI SCH (11:38)
[2025-01-19 12:39] LABS: Urine Bacteria FEW /hpf (None Seen); Urine Blood Negative /uL (Negative); Urine Clarity Clear (Clear); Urine Color Light-Yellow (Yellow); Urine Mucus FEW (None Seen); Urine Protein, UAD Negative (Negative); Urine Specific Gravity 1.031 (1.001-1.035); Urine Squamous Epithelial Cell FEW /hpf (<5); Urine Urobilinogen Normal (Negative); Urine WBC 2 /HPF (0-3); Urine pH 7.5 (5.0-9.0)
--- NOTE | 2025-01-19 13:20 | DVHINCON2 ---
GI Consult Consult Note GI consult note Date of Consultation: 01/19/2025 Chief Complaint: Elevated bilirubin with 2.7 cm right hepatic lobe hemangioma Referring Physician:Carlos COLBERT H&P: 64-year-old Hungarian-speaking male, RN translating, presented to ER with nausea, vomiting and abdominal pain Patient complains of left side abdominal pain on and off for eight months, worse in the last 6-7 days Patient also complains of neuropathy in his legs No nausea or vomiting at this time. No hematemesis. Patient admits to poor appetite, lost 11 lb in the last one-week Patient admits to losing 120 lb in one year Last BM 6-7 days ago. No complains of melena or red blood in stool Patient denies history of hepatitis or alcohol use. SP EGD two months ago, diagnosed with gastritis No colonoscopy in past Patient is seen by Oncology six months ago Past Medical History: DDD H pylori Past Surgical History: None Social History: Smoke: <1 pack per day ALCOHOL: occassional Drugs: None Family History: Noncontributory Review of Systems: Constitutional: no fever, chill, weight loss HEENT: no eye pain, no hearing loss, no oral lesion, no scleral icterus Heart: no chest pain, no chest pressure Lung: no cough, no dyspnea with exertion Abdomen: see HPI Physical exam: General: NAD, AAOX3 Chest: lung lee clear to auscultation Heart: RRR, no murmur Abdomen: non-distended, no tenderness to palpation, +BS Labs: Labs Test 01/19/25 12:36 01/19/25 11:38 01/19/25 10:24 01/19/25 03:37 Range/Units POC Glucose 127 H 70-106 mg/dl Urine Color Light-yellow Yellow Urine Clarity Clear Clear Urine pH 7.5 5.0-9.0 Urine Specific [place] 1.031 1.001-1.035 Urine Protein Negative Negative Urine Ketones Negative Negative Urine Blood Negative Negative /uL Urine Nitrite Negative Negative Urine Bilirubin Negative Negative Urine Urobilinogen Normal Negative mg/dL Urine Leukocyte Esterase Negative Negative /uL Urine RBC <1 0 - 3 /hpf Urine Microscopic WBC 2 0-3 /HPF Urine Squamous Epithelial Cells Few <5 /hpf Urine Bacteria Few H None Seen /hpf Urine Mucus Few None Seen Urine Glucose Normal Normal mg/dL White Blood Count 6.1 4.4-10.8 10^3/uL Red Blood Count 4.60 4.5-5.90 10^6/uL Hemoglobin 15.3 13.5-17.5 g/dL Hematocrit 43.7 41.0-53.0 % Mean Corpuscular Volume 95.0 80.0-100.0 fL Mean Corpuscular Hemoglobin 33.4 H 28.0-32.0 pg Mean Corpuscular Hemoglobin Concent 35.1 32.0-36.0 g/dL Red Cell Distribution Width 13.4 11.8-14.3 % Platelet Count 218 140-450 10^3/uL Mean Platelet Volume 8.1 6.9-10.8 fL Neutrophils (%) (Auto) 58.1 37.0-80.0 % Lymphocytes (%) (Auto) 35.4 10.0-50.0 % Monocytes (%) (Auto) 6.2 0.0-12.0 % Eosinophils (%) (Auto) 0.1 0.0-7.0 % Basophils (%) (Auto) 0.2 0.0-2.0 % Neutrophils # (Auto) 3.5 1.6-8.6 10 ^3/uL Lymphocytes # (Auto) 2.1 0.4-5.4 10 ^3/uL Monocytes # (Auto) 0.4 0-1.3 10 ^3/uL Eosinophils # (Auto) 0 0-0.8 10 ^3/uL Basophils # (Auto) 0 0-0.2 10 ^3/uL Nucleated Red Blood Cells 0.1 % Sodium Level 137 136-145 mmol/L Chloride Level 94 L 98-107 mmol/L Carbon Dioxide Level 31 20-31 mmol/L Anion Gap 12 5-15 Blood Urea Nitrogen 12 9-23 mg/dL Creatinine 0.73 0.700-1.30 mg/dL Glomerular Filtration Rate Calc 102 >90 mL/min BUN/Creatinine Ratio 16.4 10.0-20.0 Serum Glucose 134 H 74-106 mg/dL Hemoglobin A1c 5.8 H <5.7 % A1C Calcium Level 10.4 8.7-10.4 mg/dL Total Bilirubin 1.5 H 0.2-1.0 mg/dL Aspartate Amino Transferase (AST) 13 13-40 U/L Alanine Aminotransferase (ALT) 11 7-40 U/L Alkaline Phosphatase 52 46-116 U/L Total Protein 7.8 5.7-8.2 g/dL Albumin 4.9 H 3.2-4.8 g/dL Lipase 38 12-53 U/L Imaging: CT abdomen pelvis IMPRESSION: 1. Dilated common bile duct and main pancreatic duct. No filling defect identified. MRCP is recommended for further evaluation. 2. 2.7 cm right hepatic lobe hemangioma. Assessment: Abdominal pain Constipation Dilated CBD and pancreatic duct Right hepatic lobe hemangioma History of alcohol use Weight loss Plan: Discussed with Dr. Abdi MRI MRCP pending Monitor labs Clear liquids after MRI completed We will continue to monitor the patient Discussed plan with patient and RN Thank you for this consult Date of Service: Jan 19, 2025 Billing Provider: HERNAN ROJAS Common Visit Codes: CONSULT ONLY Consultation Codes: [id number] CONSULT <60MIN HERNAN ROJAS Jan 19, 2025 13:20
[2025-01-19] MEDS ORDERED: LORazepam 2MG/ML-1ML VIAL IV PRN (14:15)
--- NOTE | 2025-01-19 14:15 | DVHPN2 ---
Progress Note Date Seen: Jan 19, 2025 Medical Necessity Reason Pt with a Central, PICC or Fol: No Subjective Patient reports: No new complaints Review of Systems: HEENT:Normal, CVS:Normal, RESPIRATORY:Normal, GI:Normal, :Normal, MSK:Normal, NEURO:Normal Objective vital signs Vital Sign Date Time Temp Pulse Resp B/P (MAP) Pulse Ox O2 Delivery O2 Flow Rate FiO2 01/19/25 12:00 108 01/19/25 12:00 16 147/75 (99) 99 01/19/25 10:00 98.4 98.4 01/19/25 07:30 Room Air* 0 21 medications Current Medications Medications Dose Ordered Sig/Devan Route Start Time Stop Time Status Last Admin Dose Admin Sodium Chloride 1,000 ml @ 100 mls/hr Q10H IV 01/19/25 07:30 Acetaminophen/ Hydrocodone Bitart 1 tab Q4HP PRN PO 01/19/25 07:30 Ondansetron HCl 4 mg Q4HP PRN IV 01/19/25 07:30 Acetaminophen 650 mg Q6HP PRN PO 01/19/25 07:30 Morphine Sulfate 2 mg Q4HPRN PRN IV 01/19/25 07:30 Nitroglycerin 0.4 mg Q5MINP PRN SL 01/19/25 07:30 Morphine Sulfate 2 mg Q30M PRN IV 01/19/25 07:30 Diagnostic Test (Pha) 1 strip ACHS 01/19/25 11:30 01/19/25 11:38 1 STRIP Insulin Human Regular ACHS SC 01/19/25 11:30 Dextrose 50 ml UD PRN IV 01/19/25 07:45 Examination: GENERAL:Normal, HEENT:Normal, NECK:Normal, LUNGS:Normal, CVS:Normal, ABDOMEN:Normal, MSK:Normal, SKIN:Normal, NEURO:Normal, :Normal laboratory and microbiology Laboratory Tests 01/19/25 12:36 01/19/25 03:37 Test 01/19/25 03:37 Range/Units Serum Glucose 134 H 74-106 mg/dL Problem List/Assessment/Plan Problem List/Assessment/Plan #1 abd pain with cbd dilatation: mrcp pending #2 peripheral neuropathy #3 djd spine #4 dm: ssi #5 liver cysts/hemangiomas #6 hypokalemia: replace advance care planning- full code- time spent 19mins Plan discussed with: Patient My Orders My Orders Orders - LIAM STEELE MD Procedure Category Date Status Time Gabapentin Capsule PHA 01/19/25 Transmitted (Neurontin Capsule) 22:00 Gabapentin Capsule PHA 01/19/25 Transmitted (Neurontin Capsule) 14:15 Pantoprazole PHA 01/19/25 Transmitted (Protonix) 14:15 Pantoprazole PHA 01/20/25 Transmitted (Protonix) 10:00 Lorazepam 2mg/Ml Inj PHA 01/19/25 Transmitted (Ativan Inj) 14:15 Potassium Chl [place] PHA 01/19/25 Transmitted KCL 14:15 Complete Blood Count LAB 01/20/25 Verified 06:00 Comprehensive LAB 01/20/25 Verified Metabolic Panel 06:00 Magnesium LAB 01/20/25 Verified 05:00 Date of Service: Jan 19, 2025 Billing Provider: LIAM STEELE MD Common Visit Codes: [id number] INP/OBS CARE(HIGH) Secondary Visit Codes: [id number] CARE PLAN 30 MINUTES LIAM STEELE MD Jan 19, 2025 14:15
[2025-01-19] MEDS: PANTOPRAZOLE 40 MG/10 ML VIAL INJ IV ONE (15:06)
[2025-01-19] MEDS: HYDROcodone-ACET 5/325MG TAB PO PRN (15:06)
[2025-01-19] MEDS: GABAPENTIN 300 MG CAP PO ONE (15:06)
[2025-01-19] MEDS: POTASSIUM CHLORIDE 40 MEQ, LIDOCAINE 1% (LOCAL ANESTH.) 4 ML in SODIUM CHL 0.9% 250 ML IV ONE (15:18)
--- NOTE | 2025-01-19 17:01 | DVH ---
[id number] MRI MRCP MRI Attending Name: JOSE ESTRADA COMPARISON: MRI dated 07/11/2024, CT scan dated 01/19/2025 9 INDICATION: dilated common bile duct TECHNIQUE: MRCP was performed without the use of intravenous contrast using a MRI imaging system. Three-dimensional MRCP was performed using maximum intensity projection reconstruction on an [facility] [employer] workstation under concurrent supervision. FINDINGS: Visualized lower thorax: Limited imaging of the thorax demonstrates no suspicious pleural or parenchy mal disease. Liver: Normal in morphology and signal intensity. A 2.5 cm T2 hyperintense lesion noted in the right hepatic lobe, segment 6 with feeding and draining vessels noted most compatible with a hemangioma. A few subcentimeter T2 hyperintense foci are seen elsewhere in the liver. This show avid enhancement t he accompanying CT scan . Gallbladder: No evidence of cholelithiasis or gallbladder wall thickening. Biliary system: There is no intrahepatic or extrahepatic bile duct dilatation. The common bile duct m easures 6 mm in caliber. No filling defect to suggest choledocholithiasis. Spleen: Normal in morphology and signal intensity. Pancreas: Normal in morphology and signal intensity. The pancreatic duct is mildly dilated measuring 6.8 mm in caliber Adrenal glands: Normal in morphology and signal intensity. Kidneys: The kidneys are symmetric in size and appearance. No hydronephrosis. Bilateral extrarenal pe lvis noted. Urinary tract: The included ureters, as visualized, are normal in course and caliber. Bladder dome is trabeculated in appearance. GI tract: The included portions of the bowel are within normal limits. Lymph nodes: No enlarged lymph nodes. Peritoneum: No ascites. Musculoskeletal: The bone marrow signal intensity is within normal limits. IMPRESSION: 1. No cholelithiasis or choledocholithiasis. The common bile duct is normal in caliber for patient's age measuring 6 mm. 2. Prominent main pancreatic duct, 6.7 mm in caliber. No discrete pancreatic lesion is identified in this unenhanced study. Suggest further evaluation with abdominal MRI without and with IV contrast ut ilizing a pancreatic protocol. No discrete pancreatic lesion was seen in accompanying CT scan. Sugges t correlation with ERCP. 3. Multiple hepatic hemangiomas. 4. Trabeculated bladder dome likely reflects sequela of chronic ladder outlet obstruction.
[2025-01-19 20:00] VITALS: PULSE 63; RESP 16; O2SAT 98
[2025-01-19] MEDS: GABAPENTIN 300 MG CAP PO SCH (22:15)
[2025-01-19 22:34] VITALS: BP 144/95; PULSE 66; PULSE 67; RESP 17; RESP 18; TEMP 97.9; O2SAT 100
[2025-01-20] VITALS (8 sets, daily range): BP systolic 108–134; BP diastolic 66–84; PULSE 58–84; RESP 15–18; TEMP 97.7–98.4; O2SAT 94–100
[2025-01-20 05:48] LABS: Basophils # (auto) 0 10 ^3/uL (0-0.2); Basophils % (auto) 0.3 % (0.0-2.0); Eosinophils # (auto) 0 10 ^3/uL (0-0.8); Hematocrit 37.4 % (41.0-53.0); Lymphocytes # (auto) 1.7 10 ^3/uL (0.4-5.4); Lymphocytes % (auto) 37.1 % (10.0-50.0); Mean Corpuscular Hemoglobin 33.2 pg (28.0-32.0); Mean Corpuscular Hgb Conc. 34.8 g/dL (32.0-36.0); Mean Corpuscular Volume 95.6 fL (80.0-100.0); Monocytes # (auto) 0.3 10 ^3/uL (0-1.3); Monocytes % (auto) 7.4 % (0.0-12.0); Neutrophils # (auto) 2.5 10 ^3/uL (1.6-8.6); Neutrophils % (auto) 54.2 % (37.0-80.0); Nucleated Red Blood Cells % 0.1 %; Platelet Count (auto) 188 10^3/uL (140-450); Red Blood Cells 3.91 10^6/uL (4.5-5.90); Red Cell Distribution Width 13.2 % (11.8-14.3); White Blood Cell 4.6 10^3/uL (4.4-10.8)
[2025-01-20 06:17] LABS: Albumin 3.9 g/dL (3.2-4.8); Anion Gap 10 (5-15); BUN/Creatinine Ratio 12.1 (10.0-20.0); Calcium 9.3 mg/dL (8.7-10.4); Carbon Dioxide 29 mmol/L (20-31); Chloride 101 mmol/L (98-107); Magnesium 1.6 mg/dL (1.6-2.6); Sodium 140 mmol/L (136-145); Total Protein 6.2 g/dL (5.7-8.2)
[2025-01-20 06:39] LABS: Alanine Aminotransferase < 9 U/L (7-40); Alkaline Phosphatase 41 U/L (46-116); Aspartate Aminotransferase 10 U/L (13-40); Bilirubin, Total 1.3 mg/dL (0.2-1.0); Blood Urea Nitrogen 8 mg/dL (9-23); Glucose 132 mg/dL (74-106); Potassium 2.6 mmol/L (3.5-5.1)
[2025-01-20] MEDS: MORPHINE SULFATE INJ 2 MG/ml SYRG IV PRN (06:39)
--- NOTE | 2025-01-20 10:36 | DVHPN2 ---
Progress Note Date Seen: Jan 20, 2025 Medical Necessity Reason Pt with a Central, PICC or Fol: No Subjective Patient reports: No new complaints Review of Systems: HEENT:Normal, CVS:Normal, RESPIRATORY:Normal, GI:Normal, :Normal, MSK:Normal, NEURO:Normal Objective vital signs Vital Sign Date Time Temp Pulse Resp B/P (MAP) Pulse Ox O2 Delivery O2 Flow Rate FiO2 01/20/25 08:45 98.4 58 15 134/73 (93) 100 98.4 01/19/25 22:34 Room Air* 0 21 Total Intake and Output 01/19/25 01/19/25 01/20/25 15:00 23:00 07:00 Intake Total 1150 ml 168.5 ml 1100 ml Balance 1150 ml 168.5 ml 1100 ml medications Current Medications Medications Dose Ordered Sig/Devan Route Start Time Stop Time Status Last Admin Dose Admin Sodium Chloride 1,000 ml @ 100 mls/hr Q10H IV 01/19/25 07:30 01/20/25 06:29 100 MLS/HR Acetaminophen/ Hydrocodone Bitart 1 tab Q4HP PRN PO 01/19/25 07:30 01/19/25 20:35 1 TAB Ondansetron HCl 4 mg Q4HP PRN IV 01/19/25 07:30 Acetaminophen 650 mg Q6HP PRN PO 01/19/25 07:30 Morphine Sulfate 2 mg Q4HPRN PRN IV 01/19/25 07:30 01/20/25 06:39 2 MG Nitroglycerin 0.4 mg Q5MINP PRN SL 01/19/25 07:30 Morphine Sulfate 2 mg Q30M PRN IV 01/19/25 07:30 Diagnostic Test (Pha) 1 strip ACHS 01/19/25 11:30 01/20/25 06:30 1 STRIP Insulin Human Regular ACHS SC 01/19/25 11:30 01/19/25 22:22 2 UNITS Dextrose 50 ml UD PRN IV 01/19/25 07:45 Gabapentin 600 mg TID PO 01/19/25 22:00 01/20/25 06:25 600 MG Pantoprazole Sodium 40 mg DAILY IV 01/20/25 10:00 Lorazepam 1 mg ONCE PRN IV 01/19/25 14:15 01/22/25 14:14 Examination: GENERAL:Normal, HEENT:Normal, NECK:Normal, LUNGS:Normal, CVS:Normal, ABDOMEN:Normal, MSK:Normal, SKIN:Normal, NEURO:Normal, :Normal laboratory and microbiology Laboratory Tests 01/20/25 05:10 Test 01/20/25 05:10 Range/Units Serum Glucose 132 H 74-106 mg/dL Problem List/Assessment/Plan Problem List/Assessment/Plan #1 abd pain with cbd dilatation: gi consult #2 peripheral neuropathy #3 djd spine #4 dm: ssi #5 liver cysts/hemangiomas #6 hypokalemia: replace advance care planning- full code- time spent 19mins Plan discussed with: Patient My Orders My Orders Orders - LIAM STEELE MD Procedure Category Date Status Time Gabapentin Capsule PHA 01/19/25 In Process (Neurontin Capsule) 22:00 Pantoprazole PHA 01/20/25 In Process (Protonix) 10:00 Lorazepam 2mg/Ml Inj PHA 01/19/25 In Process (Ativan Inj) 14:15 * Dietary Consult CONS 01/20/25 Transmitted 05:33 Hepatitis B Surface LAB 01/20/25 In Process Antigen 05:33 Hepatitis C Antibody LAB 01/20/25 In Process 05:33 Date of Service: Jan 20, 2025 Billing Provider: LIAM STEELE MD Common Visit Codes: [id number] INP/OBS CARE(HIGH) LIAM STEELE MD Jan 20, 2025 10:36
[2025-01-20] MEDS: PANTOPRAZOLE 40 MG/10 ML VIAL INJ IV SCH (11:27)
[2025-01-20] MEDS: SODIUM CHLORIDE 0.9% 1,000 ML IV SCH (11:56)
[2025-01-20] MEDS: MAGNESIUM SULFATE 1GM/100ML 100 ML IV SCH ×2 (11:56→15:51)
--- NOTE | 2025-01-20 16:23 | DVHPN2 ---
Progress Note - Dictate Date Seen: Jan 20, 2025 Medical Necessity Reason Pt with a Central, PICC or Fol: No Subjective No new complaints, patient seen at bedside He is complaining of ongoing chronic epigastric pain Patient was on the phone talking to his Patient stated he had an endoscopy done about two months ago as an outpatient which showed some gastritis Patient is supposed to have an elective colonoscopy. vital signs Vital Sign Date Time Temp Pulse Resp B/P (MAP) Pulse Ox O2 Delivery O2 Flow Rate FiO2 01/20/25 12:32 97.8 80 16 108/74 (85) 94 97.8 01/20/25 08:15 Room Air* 0 21 Total Intake and Output 01/19/25 01/19/25 01/20/25 15:00 23:00 07:00 Intake Total 1150 ml 168.5 ml 1100 ml Balance 1150 ml 168.5 ml 1100 ml medications Current Medications Medications Dose Ordered Sig/Devan Route Start Time Stop Time Status Last Admin Dose Admin Acetaminophen/ Hydrocodone Bitart 1 tab Q4HP PRN PO 01/19/25 07:30 01/19/25 20:35 1 TAB Ondansetron HCl 4 mg Q4HP PRN IV 01/19/25 07:30 Acetaminophen 650 mg Q6HP PRN PO 01/19/25 07:30 Morphine Sulfate 2 mg Q4HPRN PRN IV 01/19/25 07:30 01/20/25 11:33 2 MG Nitroglycerin 0.4 mg Q5MINP PRN SL 01/19/25 07:30 Morphine Sulfate 2 mg Q30M PRN IV 01/19/25 07:30 Diagnostic Test (Pha) 1 strip ACHS 01/19/25 11:30 01/20/25 11:21 1 STRIP Insulin Human Regular ACHS SC 01/19/25 11:30 01/20/25 11:24 2 UNITS Dextrose 50 ml UD PRN IV 01/19/25 07:45 Gabapentin 600 mg TID PO 01/19/25 22:00 01/20/25 15:44 600 MG Pantoprazole Sodium 40 mg DAILY IV 01/20/25 10:00 01/20/25 11:27 40 MG Lorazepam 1 mg ONCE PRN IV 01/19/25 14:15 01/22/25 14:14 Sodium Chloride 1,000 ml @ 75 mls/hr [id number] IV 01/20/25 10:45 01/20/25 11:56 75 MLS/HR Enteral Nutritional Formula 240 ml BIDWM PO 01/20/25 18:00 Magnesium Sulfate/ Dextrose 100 ml @ 100 mls/hr Q1HR IV 01/20/25 16:00 01/20/25 16:59 objective General: NAD, AAOX3 Chest: lung lee clear to auscultation Heart: RRR, no murmur Abdomen: non-distended, mild epigastric tenderness to palpation, +BS Extremities without clubbing cyanosis or edema Neuro he is alert oriented x3 with no focal deficits laboratory and microbiology Laboratory Tests 01/20/25 05:10 Test 01/20/25 05:10 Range/Units Serum Glucose 132 H 74-106 mg/dL MRCP IMPRESSION: 1. No cholelithiasis or choledocholithiasis. The common bile duct is normal in caliber for patient's age measuring 6 mm. 2. Prominent main pancreatic duct, 6.7 mm in caliber. No discrete pancreatic lesion is identified in this unenhanced study. Suggest further evaluation with abdominal MRI without and with IV contrast utilizing a pancreatic protocol. No discrete pancreatic lesion was seen in accompanying CT scan. Suggest correlation with ERCP. 3. Multiple hepatic hemangiomas. 4. Trabeculated bladder dome likely reflects sequela of chronic ladder outlet obstruction. Problems(with codes): (1) Intractable abdominal pain (2) Projectile vomiting with nausea (3) Chronic pain (4) Neuropathy (5) Nausea and vomiting (6) Liver mass (7) Abdominal pain Prognosis Assessment plan Patient's liver lesions likely related to liver hemangiomas Patient has been evaluated by Oncology about a year ago Dr. Hercules and at the same time she also felt there were benign lesions and needed just observation Patient underwent a recent endoscopy which she states showed gastritis and he does not believe he needs another one Patient has also chronic pain issues and anxiety There is mild dilatation of the pancreatic duct, I will check a CA 19 nine Continue Protonix 40 mg p.o. twice a day Carafate 1 g 4 times a day DC aspirin NSAIDs smoking alcohol Patient was given my contact information to follow up in my office as an outpatient for elective colonoscopy Dietary Evaluation Review Comments: 1. Neuropathy consult for nerve pain. 2. for Wt Gains: Offer glucerna PO BID as supplements, consider a bland diet with catered likes and dislies and varities Expected Outcomes/Goals: wt gain, controlled DM, improved dietary tolerance. Plan discussed with: Patient, Spouse, Other (Dr Chavez) DEANGELO WILHELM MD Jan 20, 2025 16:23
[2025-01-20] MEDS: POTASSIUM CHLORIDE 60 MEQ, LIDOCAINE 1% (LOCAL ANESTH.) 6 ML in SODIUM CHL 0.9% 500 ML IV ONE (16:35)
[2025-01-20] MEDS: Glucerna Carbsteady SHAKE Stawberry 8oz PO SCH (17:03)
[2025-01-20] MEDS: POLYETHYLENE GLYCOL 17 GM PWDR PO ONE (17:10)
[2025-01-21] VITALS (7 sets, daily range): BP systolic 104–145; BP diastolic 62–89; PULSE 55–78; RESP 16–20; TEMP 97.5–98.5; O2SAT 97–100
[2025-01-21 07:38] LABS: Anion Gap 8 (5-15); Chloride 101 mmol/L (98-107); Sodium 140 mmol/L (136-145)
[2025-01-21 07:39] LABS: Calcium 9.6 mg/dL (8.7-10.4)
[2025-01-21 07:41] LABS: Carbon Dioxide 31 mmol/L (20-31); Potassium 3.4 mmol/L (3.5-5.1)
[2025-01-21 07:44] LABS: BUN/Creatinine Ratio 9.2 (10.0-20.0); Glucose 111 mg/dL (74-106); Magnesium 1.9 mg/dL (1.6-2.6)
[2025-01-21 07:45] LABS: Blood Urea Nitrogen 6 mg/dL (9-23)
--- NOTE | 2025-01-21 10:16 | DVHPN2 ---
Progress Note Date Seen: Jan 21, 2025 Medical Necessity Reason Pt with a Central, PICC or Fol: No Subjective Patient reports: No new complaints Review of Systems: HEENT:Normal, CVS:Normal, RESPIRATORY:Normal, GI:Normal, :Normal, MSK:Normal, NEURO:Normal Objective vital signs Vital Sign Date Time Temp Pulse Resp B/P (MAP) Pulse Ox O2 Delivery O2 Flow Rate FiO2 01/21/25 09:12 64 19 152/87 01/21/25 08:05 Room Air* 0 21 01/21/25 06:03 98.3 97 98.3 Total Intake and Output 01/20/25 01/20/25 01/21/25 15:00 23:00 07:00 Intake Total 600 ml 700 ml 470 ml Output Total 4 ml Balance 600 ml 696 ml 470 ml medications Current Medications Medications Dose Ordered Sig/Devan Route Start Time Stop Time Status Last Admin Dose Admin Acetaminophen/ Hydrocodone Bitart 1 tab Q4HP PRN PO 01/19/25 07:30 01/20/25 21:29 1 TAB Ondansetron HCl 4 mg Q4HP PRN IV 01/19/25 07:30 Acetaminophen 650 mg Q6HP PRN PO 01/19/25 07:30 Morphine Sulfate 2 mg Q4HPRN PRN IV 01/19/25 07:30 01/21/25 09:12 2 MG Nitroglycerin 0.4 mg Q5MINP PRN SL 01/19/25 07:30 Morphine Sulfate 2 mg Q30M PRN IV 01/19/25 07:30 Diagnostic Test (Pha) 1 strip ACHS 01/19/25 11:30 01/21/25 06:45 1 STRIP Insulin Human Regular ACHS SC 01/19/25 11:30 01/20/25 11:24 2 UNITS Dextrose 50 ml UD PRN IV 01/19/25 07:45 Gabapentin 600 mg TID PO 01/19/25 22:00 01/21/25 05:37 600 MG Pantoprazole Sodium 40 mg DAILY IV 01/20/25 10:00 01/21/25 09:11 40 MG Lorazepam 1 mg ONCE PRN IV 01/19/25 14:15 01/22/25 14:14 Sodium Chloride 1,000 ml @ 75 mls/hr [id number] IV 01/20/25 10:45 01/21/25 00:57 75 MLS/HR Enteral Nutritional Formula 240 ml BIDWM PO 01/20/25 18:00 01/21/25 08:00 240 ML Examination: GENERAL:Normal, HEENT:Normal, NECK:Normal, LUNGS:Normal, CVS:Normal, ABDOMEN:Normal, MSK:Normal, SKIN:Normal, NEURO:Normal, :Normal laboratory and microbiology Laboratory Tests 01/21/25 06:20 01/20/25 05:10 Test 01/21/25 06:20 Range/Units Serum Glucose 111 H 74-106 mg/dL Problem List/Assessment/Plan Problem List/Assessment/Plan #1 abd pain with cbd dilatation: gi consult #2 peripheral neuropathy #3 djd spine #4 dm: ssi #5 liver cysts/hemangiomas #6 hypokalemia: replace #7 fecal impaction: bowel regimen advance care planning- full code- time spent 19mins Plan discussed with: Patient My Orders My Orders Orders - LIAM STEELE MD Procedure Category Date Status Time Sodium Chloride 0.9% PHA 01/20/25 In Process 10:45 Nutritional PHA 01/20/25 In Process Supplements (Glucerna 18:00 Regular Diet DIET 01/20/25 Transmitted Lunch Dietary Evaluation Review Comments: 1. Neuropathy consult for nerve pain. 2. for Wt Gains: Offer glucerna PO BID as supplements, consider a bland diet with catered likes and dislies and varities Expected Outcomes/Goals: wt gain, controlled DM, improved dietary tolerance. Date of Service: Jan 21, 2025 Billing Provider: LIAM STEELE MD Common Visit Codes: [id number] INP/OBS CARE(HIGH) LIAM STEELE MD Jan 21, 2025 10:16
[2025-01-21] MEDS: LACTULOSE 20Gm/30ML SOLN PO ONE (11:08)
[2025-01-21] MEDS: SUCRALFATE 1 GM TAB PO SCH (11:09)
[2025-01-21] MEDS: DOCUSATE SOD 100 MG CAP PO ONE ×2 (11:09→16:50)
[2025-01-21] MEDS: SUCRALFATE 1 GM TAB PO ONE (11:09)
[2025-01-21] MEDS: PANTOPRAZOLE 40 MG TAB PO SCH (16:49)
--- NOTE | 2025-01-21 20:23 | DVHPN2 ---
Progress Note - Dictate Date Seen: Jan 21, 2025 Medical Necessity Reason Pt with a Central, PICC or Fol: No Subjective No new complaints, Pt went AMA to smoke Stool softener given Patient stated he had an endoscopy done about two months ago as an outpatient which showed some gastritis vital signs Vital Sign Date Time Temp Pulse Resp B/P (MAP) Pulse Ox O2 Delivery O2 Flow Rate FiO2 01/21/25 17:00 98.4 72 16 145/89 (107) 100 98.4 01/21/25 08:05 Room Air* 0 21 Total Intake and Output 01/20/25 01/20/25 01/21/25 15:00 23:00 07:00 Intake Total 600 ml 700 ml 470 ml Output Total 4 ml Balance 600 ml 696 ml 470 ml medications Current Medications Medications Dose Ordered Sig/Devan Route Start Time Stop Time Status Last Admin Dose Admin Acetaminophen/ Hydrocodone Bitart 1 tab Q4HP PRN PO 01/19/25 07:30 01/21/25 16:50 1 TAB Ondansetron HCl 4 mg Q4HP PRN IV 01/19/25 07:30 Acetaminophen 650 mg Q6HP PRN PO 01/19/25 07:30 Morphine Sulfate 2 mg Q4HPRN PRN IV 01/19/25 07:30 01/21/25 14:09 2 MG Nitroglycerin 0.4 mg Q5MINP PRN SL 01/19/25 07:30 Morphine Sulfate 2 mg Q30M PRN IV 01/19/25 07:30 Diagnostic Test (Pha) 1 strip ACHS 01/19/25 11:30 01/21/25 16:42 1 STRIP Insulin Human Regular ACHS SC 01/19/25 11:30 01/21/25 11:23 3 UNITS Dextrose 50 ml UD PRN IV 01/19/25 07:45 Gabapentin 600 mg TID PO 01/19/25 22:00 01/21/25 13:22 600 MG Lorazepam 1 mg ONCE PRN IV 01/19/25 14:15 01/22/25 14:14 Enteral Nutritional Formula 240 ml BIDWM PO 01/20/25 18:00 01/21/25 17:52 240 ML Pantoprazole Sodium 40 mg BID@0600,1700 PO 01/21/25 17:00 01/21/25 16:49 40 MG Sucralfate 1 gm QIDACHS PO 01/21/25 11:30 01/21/25 16:50 1 GM objective General: NAD, AAOX3 Chest: lung lee clear to auscultation Heart: RRR, no murmur Abdomen: non-distended, mild epigastric tenderness to palpation, +BS Extremities without clubbing cyanosis or edema Neuro he is alert oriented x3 with no focal deficits laboratory and microbiology Laboratory Tests 01/21/25 06:20 01/20/25 05:10 Test 01/21/25 06:20 Range/Units Serum Glucose 111 H 74-106 mg/dL Problems(with codes): (1) Liver mass (2) Chronic pain (3) Abdominal pain (4) Nausea and vomiting (5) Projectile vomiting with nausea (6) Intractable abdominal pain (7) Generalized weakness Prognosis PLAN Patient will be given Colace and MiraLax to help with his constipation Lipase level is normal, CA 19 9 and hepatitis panel pending Outpatient follow up with me if discharge for ongoing management observation of his chronic GI issues and for elective colonoscopy Dietary Evaluation Review Comments: 1. Neuropathy consult for nerve pain. 2. for Wt Gains: Offer glucerna PO BID as supplements, consider a bland diet with catered likes and dislies and varities Expected Outcomes/Goals: wt gain, controlled DM, improved dietary tolerance. Plan discussed with: Other DEANGELO WILHELM MD Jan 21, 2025 20:23
[2025-01-22 00:40] VITALS: BP 119/72; PULSE 65; RESP 17; TEMP 97.3; O2SAT 98
[2025-01-22 05:00] VITALS: BP 116/72; PULSE 66; RESP 18; TEMP 97.4; O2SAT 100
[2025-01-22 07:34] LABS: Anion Gap 7 (5-15); Carbon Dioxide 31 mmol/L (20-31); Chloride 99 mmol/L (98-107); Sodium 137 mmol/L (136-145)
[2025-01-22 07:36] LABS: Calcium 9.7 mg/dL (8.7-10.4)
[2025-01-22 07:41] LABS: BUN/Creatinine Ratio 12.5 (10.0-20.0)
[2025-01-22 07:51] LABS: Blood Urea Nitrogen 9 mg/dL (9-23); Glucose 115 mg/dL (74-106)
[2025-01-22 09:00] VITALS: BP 105/65; PULSE 67; RESP 18; TEMP 97.4; O2SAT 100
[2025-01-22] MEDS: POLYETHYLENE GLYCOL 17 GM PWDR PO SCH (09:45)
--- NOTE | 2025-01-22 10:29 | DVHPN2 ---
Progress Note Date Seen: Jan 22, 2025 Medical Necessity Reason Pt with a Central, PICC or Fol: No Subjective Patient reports: No new complaints Review of Systems: HEENT:Normal, CVS:Normal, RESPIRATORY:Normal, GI:Normal, :Normal, MSK:Normal, NEURO:Normal Objective vital signs Vital Sign Date Time Temp Pulse Resp B/P (MAP) Pulse Ox O2 Delivery O2 Flow Rate FiO2 01/22/25 09:00 97.4 67 18 105/65 (78) 100 97.4 01/22/25 08:03 Room Air* 0 21 Total Intake and Output 01/21/25 01/21/25 01/22/25 15:00 23:00 07:00 Intake Total 675 ml 850 ml 650 ml Output Total 1000 ml Balance 675 ml -150 ml 650 ml medications Current Medications Medications Dose Ordered Sig/Devan Route Start Time Stop Time Status Last Admin Dose Admin Acetaminophen/ Hydrocodone Bitart 1 tab Q4HP PRN PO 01/19/25 07:30 01/21/25 16:50 1 TAB Ondansetron HCl 4 mg Q4HP PRN IV 01/19/25 07:30 Acetaminophen 650 mg Q6HP PRN PO 01/19/25 07:30 Morphine Sulfate 2 mg Q4HPRN PRN IV 01/19/25 07:30 01/22/25 06:46 2 MG Nitroglycerin 0.4 mg Q5MINP PRN SL 01/19/25 07:30 Morphine Sulfate 2 mg Q30M PRN IV 01/19/25 07:30 Diagnostic Test (Pha) 1 strip ACHS 01/19/25 11:30 01/22/25 06:01 1 STRIP Insulin Human Regular ACHS SC 01/19/25 11:30 01/21/25 21:34 3 UNITS Dextrose 50 ml UD PRN IV 01/19/25 07:45 Gabapentin 600 mg TID PO 01/19/25 22:00 01/22/25 05:58 600 MG Lorazepam 1 mg ONCE PRN IV 01/19/25 14:15 01/22/25 14:14 Enteral Nutritional Formula 240 ml BIDWM PO 01/20/25 18:00 01/22/25 07:56 240 ML Pantoprazole Sodium 40 mg BID@0600,1700 PO 01/21/25 17:00 01/22/25 05:58 40 MG Sucralfate 1 gm QIDACHS PO 01/21/25 11:30 01/22/25 06:01 1 GM Polyethylene Glycol 17 gm DAILY PO 01/22/25 10:00 01/22/25 09:45 17 GM Examination: GENERAL:Normal, HEENT:Normal, NECK:Normal, LUNGS:Normal, CVS:Normal, ABDOMEN:Normal, MSK:Normal, SKIN:Normal, NEURO:Normal, :Normal laboratory and microbiology Laboratory Tests 01/22/25 06:30 01/20/25 05:10 Test 01/22/25 06:30 Range/Units Serum Glucose 115 H 74-106 mg/dL Problem List/Assessment/Plan Problem List/Assessment/Plan #1 abd pain with cbd dilatation: MRI abdomen with contrast #2 peripheral neuropathy #3 djd spine #4 dm: ssi #5 liver cysts/hemangiomas #6 hypokalemia: replace #7 fecal impaction: bowel regimen advance care planning- full code- time spent 19mins Plan discussed with: Patient My Orders My Orders Orders - LIAM STEELE MD Procedure Category Date Status Time Potassium Effervesent PHA 01/22/25 Logged Tab (Klor-Con/Ef) 10:30 Potassium Chloride PHA 01/22/25 Logged (Potassium Chloride). 10:30 Potassium LAB 01/22/25 Logged 15:00 Mri Abdomen W And Wo MRI 01/22/25 Logged 10:21 Lorazepam 2mg/Ml Inj PHA 01/22/25 Logged (Ativan Inj) 10:30 Mri Abdomen W And Wo MRI 01/22/25 Logged 10:25 Dietary Evaluation Review Comments: 1. Neuropathy consult for nerve pain. 2. for Wt Gains: Offer glucerna PO BID as supplements, consider a bland diet with catered likes and dislies and varities Expected Outcomes/Goals: wt gain, controlled DM, improved dietary tolerance. Date of Service: Jan 22, 2025 Billing Provider: LIAM STEELE MD Common Visit Codes: [id number] INP/OBS CARE(HIGH) LIAM STEELE MD Jan 22, 2025 10:29
[2025-01-22 10:32] LABS: Hepatitis B Surface Antigen Negative (Negative); Hepatitis C Antibody Negative (Negative)
[2025-01-22] MEDS: POTASSIUM EFFERVESENT TAB 25 MEQ PO ONE (11:18)
[2025-01-22] MEDS: MAGNESIUM SULFATE 1GM/100ML 100 ML IV SCH (11:18)
[2025-01-22] MEDS: GADOTERATE MEG 7.5 MMOL/15ml INJ (0.5MMOL/ml) IV ONE (11:27)
[2025-01-22] MEDS: LORazepam 2MG/ML-1ML VIAL IV ONE (11:29)
[2025-01-22] MEDS: POTASSIUM CHLORIDE 40 MEQ, LIDOCAINE 1% (LOCAL ANESTH.) 4 ML in SODIUM CHL 0.9% 250 ML IV ONE (12:31)
[2025-01-22 12:47] VITALS: BP 106/76; PULSE 80; RESP 18; TEMP 97.6; O2SAT 94
--- NOTE | 2025-01-22 16:14 | DVH ---
MRI Abdomen, Pre and Post Contrast Exam Date: 01/22/2025 01:39 PM Comparison: MRI MRI ABDOMEN W AND WO on DOS: 07/11/24 History: abd pain Technique: Multisequence multiplanar MRI images were obtained of the abdomen without and with intravenous contra st. Findings: Liver: Unchanged 3.2 cm hemangioma in the inferior right hepatic lobe. Spleen: Unremarkable. Pancreas: Suboptimally evaluated and visualized. Grossly unremarkable. Gallbladder and ducts: Gallbladder is normal in appearance. The cystic duct, right and left hepatic ducts, common hepatic duct, and common bile ducts are unremarkable. The pancreatic duct is within n ormal limits. Adrenal glands: Unremarkable. Kidneys: Normal enhancement without suspicious lesions or hydronephrosis. Visualized bowel: Grossly unremarkable. Vasculature: Unremarkable. Lymphadenopathy: No evidence for lymphadenopathy. Ascites: Absent. Musculoskeletal: Bone marrow signal is normal. IMPRESSION: Multiphase postcontrast imaging of the abdomen is limited secondary to patient motion artifact. The p ancreas is better evaluated on MRI dated 01/19/2025. Grossly, no new acute or suspicious findings on current examination.
[2025-01-22 16:52] VITALS: BP 110/65; PULSE 71; RESP 20; TEMP 98.6; O2SAT 98
[2025-01-22] MEDS: SOD CHL 0.9%/ KCL 40MEQ 1,000 ML IV SCH (17:15)
[2025-01-22] MEDS: MAGNESIUM SULFATE 1GM/100ML 100 ML IV ONE (17:52)
[2025-01-22] MEDS: GOLYTELY 4L KIT PO ONE ×2 (17:55→18:00)
--- NOTE | 2025-01-22 18:15 | DVHPN2 ---
Progress Note - Dictate Date Seen: Jan 22, 2025 Medical Necessity Reason Pt with a Central, PICC or Fol: No Subjective No new complaints, Continued moderate abd pain; pt had significant weight loss Patient stated he had an endoscopy done about two months ago as an outpatient which showed some H pylori gastritis Pt was treated with antibiotics vital signs Vital Sign Date Time Temp Pulse Resp B/P (MAP) Pulse Ox O2 Delivery O2 Flow Rate FiO2 01/22/25 16:52 98.6 71 20 110/65 (80) 98 98.6 01/22/25 08:03 Room Air* 0 21 Total Intake and Output 01/21/25 01/21/25 01/22/25 15:00 23:00 07:00 Intake Total 675 ml 850 ml 650 ml Output Total 1000 ml Balance 675 ml -150 ml 650 ml medications Current Medications Medications Dose Ordered Sig/Devan Route Start Time Stop Time Status Last Admin Dose Admin Acetaminophen/ Hydrocodone Bitart 1 tab Q4HP PRN PO 01/19/25 07:30 01/21/25 16:50 1 TAB Ondansetron HCl 4 mg Q4HP PRN IV 01/19/25 07:30 Acetaminophen 650 mg Q6HP PRN PO 01/19/25 07:30 Morphine Sulfate 2 mg Q4HPRN PRN IV 01/19/25 07:30 01/22/25 15:48 2 MG Nitroglycerin 0.4 mg Q5MINP PRN SL 01/19/25 07:30 Morphine Sulfate 2 mg Q30M PRN IV 01/19/25 07:30 Diagnostic Test (Pha) 1 strip ACHS 01/19/25 11:30 01/22/25 16:47 1 STRIP Insulin Human Regular ACHS SC 01/19/25 11:30 01/22/25 16:52 2 UNITS Dextrose 50 ml UD PRN IV 01/19/25 07:45 Gabapentin 600 mg TID PO 01/19/25 22:00 01/22/25 14:39 600 MG Enteral Nutritional Formula 240 ml BIDWM PO 01/20/25 18:00 01/22/25 17:57 240 ML Pantoprazole Sodium 40 mg BID@0600,1700 PO 01/21/25 17:00 01/22/25 16:54 40 MG Sucralfate 1 gm QIDACHS PO 01/21/25 11:30 01/22/25 16:53 1 GM Polyethylene Glycol 17 gm DAILY PO 01/22/25 10:00 01/22/25 09:45 17 GM Potassium Chloride/Sodium Chloride 1,000 ml @ 75 mls/hr [id number] IV 01/22/25 17:15 objective General: NAD, AAOX3 Chest: lung lee clear to auscultation Heart: RRR, no murmur Abdomen: non-distended, mild epigastric tenderness to palpation, +BS Extremities without clubbing cyanosis or edema Neuro he is alert oriented x3 with no focal deficits laboratory and microbiology Laboratory Tests 01/22/25 14:59 01/22/25 06:30 01/20/25 05:10 Test 01/22/25 06:30 Range/Units Serum Glucose 115 H 74-106 mg/dL MRI Negative MRCP IMPRESSION: 1. No cholelithiasis or choledocholithiasis. The common bile duct is normal in caliber for patient's age measuring 6 mm. 2. Prominent main pancreatic duct, 6.7 mm in caliber. No discrete pancreatic lesion is identified in this unenhanced study. Suggest further evaluation with abdominal MRI without and with IV contrast utilizing a pancreatic protocol. No discrete pancreatic lesion was seen in accompanying CT scan. Suggest correlation with ERCP. 3. Multiple hepatic hemangiomas. 4. Trabeculated bladder dome likely reflects sequela of chronic ladder outlet obstruction. Problems(with codes): (1) Generalized weakness (2) Liver mass (3) Chronic pain (4) Abdominal pain (5) Nausea and vomiting (6) Projectile vomiting with nausea (7) Intractable abdominal pain Prognosis Plan Repeat EGD and Colonoscopy on 01/23/25 Bowel prep tonight Dietary Evaluation Review Comments: 1. Neuropathy consult for nerve pain. 2. for Wt Gains: Offer glucerna PO BID as supplements, consider a bland diet with catered likes and dislies and varities Expected Outcomes/Goals: wt gain, controlled DM, improved dietary tolerance. Plan discussed with: Other (Dr Chavez) DEANGELO WILHELM MD Jan 22, 2025 18:15
[2025-01-22 21:00] VITALS: BP 128/85; PULSE 81; RESP 18; TEMP 97.6; O2SAT 97
[2025-01-22 22:23] LABS: INR 1.03 (0.9-1.15); Partial Thromboplastin Time 27.1 SEC (24.5-34.5); Prothrombin Time 10.9 sec (9.3-11.8)
[2025-01-23] VITALS (7 sets, daily range): BP systolic 88–148; BP diastolic 59–94; PULSE 68–98; RESP 16–20; TEMP 97–97.8; O2SAT 96–100
--- NOTE | 2025-01-23 05:24 | DVH ---
EXAM: XR Chest, 1 View CLINICAL INDICATION: PROCEDURE TECHNIQUE: Frontal view of the chest. COMPARISON: None FINDINGS: LUNGS AND PLEURAL SPACES: Unremarkable. No consolidation. No pneumothorax. HEART: Unremarkable. No cardiomegaly. MEDIASTINUM: Unremarkable. Normal mediastinal contour. BONES/JOINTS: Unremarkable. No acute fracture. OTHER FINDINGS: . None. IMPRESSION: No acute cardiopulmonary process.
[2025-01-23] MEDS: GOLYTELY 4L KIT PO ONE (06:14)
[2025-01-23] MEDS: MAGNESIUM CITRATE SOLUTION 300 ML BTL PO ONE (06:14)
[2025-01-23 07:02] LABS: Chloride 104 mmol/L (98-107); Potassium 3.8 mmol/L (3.5-5.1); Sodium 140 mmol/L (136-145)
[2025-01-23 07:03] LABS: Anion Gap 6 (5-15); Carbon Dioxide 30 mmol/L (20-31)
[2025-01-23 07:04] LABS: Calcium 9.3 mg/dL (8.7-10.4)
[2025-01-23 07:08] LABS: Glucose 98 mg/dL (74-106)
[2025-01-23 07:09] LABS: BUN/Creatinine Ratio 12.7 (10.0-20.0)
[2025-01-23 07:18] LABS: Blood Urea Nitrogen 9 mg/dL (9-23)
--- NOTE | 2025-01-23 07:40 | ECG ---
[facility] Test Date: 2025-01-23 Test Time: 07:23:50 Pat Name: SERGIO MATSON Department: Respiratoy Room: 0214 A Gender: M Psychologist Personnel: ABDI : 1960 Requested By: DEANGELO WILHELM Order Number: [id number] Reading MD: Arvin Garcia Measurements Intervals Rheems Rate: 70 P: -84 NC: 109 QRS: -64 QRSD: 91 T: 59 QT: 423 QTc: 457 Interpretive Statements Ectopic atrial rhythm Short NC interval Left anterior fascicular block Electronically Signed On 01-23-2025 13:39:24 PST by Arvin Garcia Please click the below link to view image of tracing.
[2025-01-23] MEDS ORDERED: ONDANSETRON HCL 4 MG/2 ML VIAL ONE (13:59)
[2025-01-23] MEDS ORDERED: fentaNYL CITRATE 100 MCG/2 ML VL ONE (13:59)
[2025-01-23] MEDS ORDERED: GLYCOPYRROLATE 0.2 MG/ML 1ML VIAL ONE (13:59)
[2025-01-23] MEDS ORDERED: LIDOCAINE 2% (LOCAL ANESTH.) PF 5ml SDV ONE (13:59)
[2025-01-23] MEDS ORDERED: PROPOFOL 10 MG/ML 20 ML IV ONE (13:59)
[2025-01-23] MEDS ORDERED: MIDAZOLAM HCL 2MG/2ML 2ml VIAL (1mg/ml) ONE (13:59)
[2025-01-23] MEDS ORDERED: HYDROmorphone HCL 2 MG/ML VL/or syr IV PRN (14:45)
--- NOTE | 2025-01-23 15:46 | DVHOP2 ---
Operative Report DATE OF OPERATION: 01/23/25 PROCEDURE: Upper Endoscopy with biopsy. PREOPERATIVE INDICATION: The patient is a 64 -year-old male undergoing endoscopy for epigastric pain and history of H.pylori gastritis POSTOPERATIVE DIAGNOSES: 1. Mild gastritis PROCEDURE PERFORMED BY: Deangelo Abdi GI NURSE: Addy SCOPE: Olympus videoendoscope. ASA CLASS: 3. PREOPERATIVE MEDICATIONS: Mac sedation, Dr. Portillo PROCEDURE IN DETAIL: After obtaining an informed consent, the patient was placed on left lateral decubitus position. The patient was then sedated with the above medications. A bite block was placed between his teeth. The endoscope was then passed through the oropharynx, into the esophagus, and through the stomach and pylorus up to the second and third part of the duodenum. The endoscope was then withdrawn. The 2nd and 3rd part of the duodenal and the duodenal bulb were normal. Duodenal biopsies were obtained The pre-pyloric area antrum and body showed mild gastritis with some hyperemia erythema and superficial nodularity of the mucosa Gastric biopsies were obtained. On retroflexion the fundus cardia and angularis were normal. The endoscope was then withdrawn into distal esophagus There was no hiatal hernia no significant esophagitis and no varices. The remaining distal and proximal esophagus and oropharynx were unremarkable The patient tolerated the procedure well without difficulty. COMPLICATIONS : None SPECIMENS: Duodenal biopsies Gastric biopsies DISPOSITION: Transfer back to the floor Stable PLAN: 1. Await for biopsy result 2. Will place pt on Protonix 40 mg p.o. daily 3. Carafate 1 g p.o. twice a day 4. DC aspirin NSAIDs smoking alcohol 5. Outpatient follow up with me in 4-6 weeks to review results and discuss further management DEANGELO ABDI MD Jan 23, 2025 15:46
--- NOTE | 2025-01-23 15:48 | DVHOP2 ---
Operative Report DATE OF OPERATION: 01/23/25 PROCEDURE: Colonoscopy with cold biopsy polypectomy. PREOPERATIVE INDICATION: The patient is a 64 -year-old male undergoing colonoscopy for colon cancer screening complaining of weight loss and chronic abdominal pain POSTOPERATIVE DIAGNOSES: 1. There was a 2-3 mm benign-appearing rectosigmoid polyp that was seen and removed completely via cold biopsy forceps 2. Patient had 1+ internal hemorrhoids with a hypertrophied anal papilla with superficial excoriation from which biopsies were obtained 3. Otherwise essentially completely normal colonoscopy examination up to the cecum and terminal ileum PROCEDURE PERFORMED BY: Deangelo Abdi M.D. SCOPE: Olympus videocolonoscope. ASA CLASS: 3. PREOPERATIVE MEDICATIONS: Dr. Bandar Marrero PROCEDURE IN DETAIL: After obtaining an informed consent, the patient was placed on left lateral decubitus position. He was then sedated with the above medications. A rectal examination was performed that was normal. The colonoscope was then passed through the anus into the rectosigmoid and through the descending, transverse, and ascending colon up to the cecum with visualization of the appendiceal orifice, base of the cecum and the ileocecal valve. The colonoscope was then withdrawn. The distal 5 cm of the terminal ileum were normal There were no masses or colitis noted. There was no clear-cut diverticular disease. In the rectosigmoid there was a 2-3 mm benign-appearing rectosigmoid polyp that was seen and removed completely via cold biopsy forceps On retroflexion and straight on view the patient had a hypertrophied anal papilla with superficial excoriation and irregularity of the tip from which biopsies were obtained The patient tolerated the procedure well without difficulty. WITHDRAWAL TIME: 7 minutes QUALITY OF THE PREP: [place] Bowel Prep score: 9. COMPLICATIONS : None SPECIMENS: Rectosigmoid polyp Anal papillae biopsy DISPOSITION: Transfer back to the floor Stable PLAN: 1. Repeat colonoscopy base on biopsy result in five years 2. Resume GI soft diet advance as tolerated 3. Local anorectal hemorrhoidal care 4. Outpatient follow up with me in 4-6 weeks to review results and discuss further management DEANGELO ABDI MD Jan 23, 2025 15:48
--- NOTE | 2025-01-23 16:57 | DVHPN2 ---
Subjective FEELS BETTER. STATUS POST EGD AND COLONOSCOPY Reviewed: Care Plan, H&P, Labs, Medications, Previous Orders, Radiology, Other (Waiver Analyst) Changes from previous H/P or p: No Changes Gastrointestinal: Nausea, Vomiting, Abdominal Pain, Constipation Objective Vitals Vital Signs Date Time Temp Pulse Resp B/P (MAP) Pulse Ox O2 Delivery O2 Flow Rate FiO2 01/23/25 16:53 97.8 68 20 145/79 (101) 99 97.8 01/23/25 08:00 Room Air* 0 21 Intake/Output Intake and Output 01/23/25 07:00 Intake Total 4037 ml Output Total 900 ml Balance 3137 ml Intake Oral 3700 ml IV Total 337 ml Output Urine Total 900 ml # Voids 3 # Bowel Movements 2 General Appearance: Alert, Oriented X3, Cooperative, No acute distress HEENT: Atraumatic, Other (Poor dentition) Lungs: Clear to auscultation Cardiovascular: Regular rate Abdomen: Soft, No tenderness Medications Current Medications Medications Dose Ordered Sig/Devan Route Start Time Stop Time Status Last Admin Dose Admin Acetaminophen/ Hydrocodone Bitart 1 tab Q4HP PRN PO 01/19/25 07:30 01/23/25 11:07 1 TAB Ondansetron HCl 4 mg Q4HP PRN IV 01/19/25 07:30 Acetaminophen 650 mg Q6HP PRN PO 01/19/25 07:30 Morphine Sulfate 2 mg Q4HPRN PRN IV 01/19/25 07:30 01/23/25 02:27 2 MG Nitroglycerin 0.4 mg Q5MINP PRN SL 01/19/25 07:30 Morphine Sulfate 2 mg Q30M PRN IV 01/19/25 07:30 Diagnostic Test (Pha) 1 strip ACHS 01/19/25 11:30 01/23/25 11:30 1 STRIP Insulin Human Regular ACHS SC 01/19/25 11:30 01/22/25 21:10 2 UNITS Dextrose 50 ml UD PRN IV 01/19/25 07:45 Gabapentin 600 mg TID PO 01/19/25 22:00 01/22/25 21:12 600 MG Enteral Nutritional Formula 240 ml BIDWM PO 01/20/25 18:00 01/22/25 17:57 240 ML Pantoprazole Sodium 40 mg BID@0600,1700 PO 01/21/25 17:00 01/22/25 16:54 40 MG Sucralfate 1 gm QIDACHS PO 01/21/25 11:30 01/22/25 21:12 1 GM Polyethylene Glycol 17 gm DAILY PO 01/22/25 10:00 01/23/25 10:31 17 GM Potassium Chloride/Sodium Chloride 1,000 ml @ 75 mls/hr [id number] IV 01/22/25 17:15 01/22/25 17:15 75 MLS/HR Laboratory Results Laboratory Tests 01/20/25 05:10 01/23/25 05:13 Chemistry Test 01/23/25 05:13 Calcium Level 9.3 mg/dL (8.7-10.4) Magnesium Level 2.0 mg/dL (1.6-2.6) Coagulation Test 01/22/25 21:08 Prothrombin Time 10.9 sec (9.3-11.8) Prothrombin Time INR 1.03 (0.9-1.15) Activated Partial Thromboplast Time 27.1 SEC (24.5-34.5) Urinalysis Test 01/19/25 10:24 Urine Color Light-yellow (Yellow) Urine Clarity Clear (Clear) Urine pH 7.5 (5.0-9.0) Urine Specific [place] 1.031 (1.001-1.035) Urine Protein Negative (Negative) Urine Ketones Negative (Negative) Urine Blood Negative /uL (Negative) Urine Nitrite Negative (Negative) Urine Bilirubin Negative (Negative) Urine Urobilinogen Normal mg/dL (Negative) Urine Leukocyte Esterase Negative /uL (Negative) Urine RBC <1 /hpf (0 - 3) Urine Microscopic WBC 2 /HPF (0-3) Urine Squamous Epithelial Cells Few /hpf (<5) Urine Bacteria Few /hpf (None Seen) H Urine Mucus Few (None Seen) Urine Glucose Normal mg/dL (Normal) Assessment/Plan Assessment/Plan The abdominal pain Dilated common bile duct Status post EGD and colonoscopy. Found gastritis and one colon polyp and mild hemorrhoid Diabetes Spine degenerative joint disease Peripheral neuropathy Liver hemangiomas/cysts Fecal impaction Homelessness Plan: Continue current plan of care. Social service for disposition/homelessness Plan discussed with: Patient, Other (Nursing and GI) Date of Service: Jan 23, 2025 Billing Provider: MARTY DIOP MD Common Visit Codes: [id number] INP/OBS CARE(HIGH) MARTY DIOP MD Jan 23, 2025 16:57
[2025-01-24] VITALS (7 sets, daily range): BP systolic 101–150; BP diastolic 68–91; PULSE 49–83; RESP 16–20; TEMP 97.6–97.9; O2SAT 92–100
[2025-01-24 06:17] LABS: Basophils # (auto) 0.1 10 ^3/uL (0-0.2); Eosinophils # (auto) 0.1 10 ^3/uL (0-0.8); Eosinophils % (auto) 2.2 % (0.0-7.0); Hematocrit 36.2 % (41.0-53.0); Hemoglobin 12.1 g/dL (13.5-17.5); Lymphocytes # (auto) 2.3 10 ^3/uL (0.4-5.4); Lymphocytes % (auto) 33.8 % (10.0-50.0); Mean Corpuscular Hemoglobin 32.6 pg (28.0-32.0); Mean Corpuscular Hgb Conc. 33.5 g/dL (32.0-36.0); Mean Corpuscular Volume 97.2 fL (80.0-100.0); Monocytes # (auto) 0.4 10 ^3/uL (0-1.3); Monocytes % (auto) 5.3 % (0.0-12.0); Neutrophils # (auto) 3.9 10 ^3/uL (1.6-8.6); Neutrophils % (auto) 57.7 % (37.0-80.0); Nucleated Red Blood Cells % 0.2 %; Platelet Count (auto) 215 10^3/uL (140-450); Red Blood Cells 3.72 10^6/uL (4.5-5.90); Red Cell Distribution Width 13.5 % (11.8-14.3); White Blood Cell 6.8 10^3/uL (4.4-10.8)
--- NOTE | 2025-01-24 14:08 | DVHPN2 ---
Progress Note - Dictate Date Seen: Jan 24, 2025 Medical Necessity Reason Pt with a Central, PICC or Fol: No Subjective Patient continues to leave AMA to go smoke with his friends and family Lab tests are normal, lipase normal, CA 19-9 with a normal limits No diarrhea recorded EGD showed mild gastritis Colonoscopy showed a hypertrophied anal papilla with superficial excoriation and a small rectosigmoid benign polyp vital signs Vital Sign Date Time Temp Pulse Resp B/P (MAP) Pulse Ox O2 Delivery O2 Flow Rate FiO2 01/24/25 13:00 97.9 49 20 139/79 (99) 92 97.9 01/24/25 08:00 Room Air* 0 21 Total Intake and Output 01/23/25 01/23/25 01/24/25 15:00 23:00 07:00 Intake Total 800 ml 1200 ml Balance 800 ml 1200 ml medications Current Medications Medications Dose Ordered Sig/Devan Route Start Time Stop Time Status Last Admin Dose Admin Acetaminophen/ Hydrocodone Bitart 1 tab Q4HP PRN PO 01/19/25 07:30 01/24/25 11:48 1 TAB Ondansetron HCl 4 mg Q4HP PRN IV 01/19/25 07:30 Acetaminophen 650 mg Q6HP PRN PO 01/19/25 07:30 Morphine Sulfate 2 mg Q4HPRN PRN IV 01/19/25 07:30 01/23/25 02:27 2 MG Nitroglycerin 0.4 mg Q5MINP PRN SL 01/19/25 07:30 Morphine Sulfate 2 mg Q30M PRN IV 01/19/25 07:30 Diagnostic Test (Pha) 1 strip ACHS 01/19/25 11:30 01/24/25 11:52 1 STRIP Insulin Human Regular ACHS SC 01/19/25 11:30 01/24/25 11:54 4 UNITS Dextrose 50 ml UD PRN IV 01/19/25 07:45 Gabapentin 600 mg TID PO 01/19/25 22:00 01/24/25 13:54 600 MG Enteral Nutritional Formula 240 ml BIDWM PO 01/20/25 18:00 01/24/25 08:56 240 ML Pantoprazole Sodium 40 mg BID@0600,1700 PO 01/21/25 17:00 01/24/25 05:19 40 MG Sucralfate 1 gm QIDACHS PO 01/21/25 11:30 01/24/25 11:47 1 GM Polyethylene Glycol 17 gm DAILY PO 01/22/25 10:00 01/24/25 11:54 17 GM Potassium Chloride/Sodium Chloride 1,000 ml @ 75 mls/hr [id number] IV 01/22/25 17:15 01/24/25 13:59 75 MLS/HR objective General: NAD, AAOX3 Chest: lung lee clear to auscultation Heart: RRR, no murmur Abdomen: non-distended, mild epigastric tenderness to palpation, +BS Extremities without clubbing cyanosis or edema Neuro he is alert oriented x3 with no focal deficits laboratory and microbiology Laboratory Tests 01/24/25 05:00 01/23/25 05:13 Test 01/23/25 05:13 Range/Units Serum Glucose 98 74-106 mg/dL Problems(with codes): (1) Generalized weakness (2) Liver mass (3) Chronic pain Prognosis Plan Continue PPI and Carafate Avoid aspirin NSAIDs and Discouraged smoking and alcohol intake Discharge planning as per hospitalist Outpatient follow up with his primary doctor and arrange outpatient follow up with GI Services I will review his pathology reports and notify the patient if there is any cause for concern Dietary Evaluation Review Comments: 1. Neuropathy consult for nerve pain. 2. for Wt Gains: Offer glucerna PO BID as supplements, consider a bland diet with catered likes and dislies and varities Expected Outcomes/Goals: wt gain, controlled DM, improved dietary tolerance. Plan discussed with: Patient, Other (Dr Zaldivar) DEANGELO WILHELM MD Jan 24, 2025 14:08
--- NOTE | 2025-01-24 16:42 | DVHPN2 ---
Subjective FEELS BETTER. 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) Changes from previous H/P or p: No Changes Objective Vitals Vital Signs Date Time Temp Pulse Resp B/P (MAP) Pulse Ox O2 Delivery O2 Flow Rate FiO2 01/24/25 13:00 97.9 49 20 139/79 (99) 92 97.9 01/24/25 08:00 Room Air* 0 21 Intake/Output Intake and Output 01/24/25 07:00 Intake Total 2000 ml Balance 2000 ml Intake Oral 1200 ml IV Total 800 ml # Voids 3 General Appearance: Alert, Oriented X3, Cooperative, No acute distress HEENT: Atraumatic, Other (Poor dentition) Lungs: Clear to auscultation Cardiovascular: Regular rate Abdomen: Soft, No tenderness Medications Current Medications Medications Dose Ordered Sig/Devan Route Start Time Stop Time Status Last Admin Dose Admin Acetaminophen/ Hydrocodone Bitart 1 tab Q4HP PRN PO 01/19/25 07:30 01/24/25 11:48 1 TAB Ondansetron HCl 4 mg Q4HP PRN IV 01/19/25 07:30 Acetaminophen 650 mg Q6HP PRN PO 01/19/25 07:30 Morphine Sulfate 2 mg Q4HPRN PRN IV 01/19/25 07:30 01/23/25 02:27 2 MG Nitroglycerin 0.4 mg Q5MINP PRN SL 01/19/25 07:30 Morphine Sulfate 2 mg Q30M PRN IV 01/19/25 07:30 Diagnostic Test (Pha) 1 strip ACHS 01/19/25 11:30 01/24/25 11:52 1 STRIP Insulin Human Regular ACHS SC 01/19/25 11:30 01/24/25 11:54 4 UNITS Dextrose 50 ml UD PRN IV 01/19/25 07:45 Gabapentin 600 mg TID PO 01/19/25 22:00 01/24/25 13:54 600 MG Enteral Nutritional Formula 240 ml BIDWM PO 01/20/25 18:00 01/24/25 08:56 240 ML Pantoprazole Sodium 40 mg BID@0600,1700 PO 01/21/25 17:00 01/24/25 05:19 40 MG Sucralfate 1 gm QIDACHS PO 01/21/25 11:30 01/24/25 11:47 1 GM Polyethylene Glycol 17 gm DAILY PO 01/22/25 10:00 01/24/25 11:54 17 GM Potassium Chloride/Sodium Chloride 1,000 ml @ 75 mls/hr [id number] IV 01/22/25 17:15 01/24/25 13:59 75 MLS/HR Laboratory Results Laboratory Tests 01/23/25 05:13 01/24/25 05:00 Urinalysis Test 01/19/25 10:24 Urine Color Light-yellow (Yellow) Urine Clarity Clear (Clear) Urine pH 7.5 (5.0-9.0) Urine Specific [place] 1.031 (1.001-1.035) Urine Protein Negative (Negative) Urine Ketones Negative (Negative) Urine Blood Negative /uL (Negative) Urine Nitrite Negative (Negative) Urine Bilirubin Negative (Negative) Urine Urobilinogen Normal mg/dL (Negative) Urine Leukocyte Esterase Negative /uL (Negative) Urine RBC <1 /hpf (0 - 3) Urine Microscopic WBC 2 /HPF (0-3) Urine Squamous Epithelial Cells Few /hpf (<5) Urine Bacteria Few /hpf (None Seen) H Urine Mucus Few (None Seen) Urine Glucose Normal mg/dL (Normal) Assessment/Plan Assessment/Plan The abdominal pain Dilated common bile duct Status post EGD and colonoscopy. Found gastritis and one colon polyp and mild hemorrhoid Diabetes Spine degenerative joint disease Peripheral neuropathy Liver hemangiomas/cysts Fecal impaction Homelessness Plan: Patient said he does not have a place at this point after discharge. Social service for placement. Patient went outside to smoke. He was advised to quit smoking. He understood. Plan discussed with: Patient My Orders Orders - MARTY DIOP MD Procedure Category Date Status Time * Sample Steamer CONS 01/23/25 Transmitted Consult Date of Service: Jan 24, 2025 Billing Provider: MARTY DIOP MD Common Visit Codes: [id number] INP/OBS CARE(HIGH) MARTY DIOP MD Jan 24, 2025 16:42
[2025-01-25 01:00] VITALS: BP 135/82; PULSE 70; RESP 18; TEMP 97.8; O2SAT 98
[2025-01-25 05:00] VITALS: BP 139/90; PULSE 75; RESP 18; TEMP 97.9; O2SAT 97
[2025-01-25 08:00] VITALS: PULSE 76; RESP 16; O2SAT 100
[2025-01-25 08:30] VITALS: BP 118/77; PULSE 76; RESP 16; TEMP 97.8; O2SAT 100
--- NOTE | 2025-01-25 11:16 | DVHDS2 ---
Discharge Summary Date of Admission Jan 19, 2025 at 07:26 Date of Discharge: Jan 25, 2025 Admitting Diagnosis Abdominal pain with nausea and vomit Labs/Diagnostic Data: Laboratory Results Test 01/25/25 06:07 01/24/25 05:00 01/23/25 05:13 01/22/25 21:08 POC Glucose 104 mg/dl (70-106) White Blood Count 6.8 10^3/uL (4.4-10.8) Red Blood Count 3.72 10^6/uL (4.5-5.90) Hemoglobin 12.1 g/dL (13.5-17.5) Hematocrit 36.2 % (41.0-53.0) Mean Corpuscular Volume 97.2 fL (80.0-100.0) Mean Corpuscular Hemoglobin 32.6 pg (28.0-32.0) Mean Corpuscular Hemoglobin Concent 33.5 g/dL (32.0-36.0) Red Cell Distribution Width 13.5 % (11.8-14.3) Platelet Count 215 10^3/uL (140-450) Mean Platelet Volume 8.6 fL (6.9-10.8) Neutrophils (%) (Auto) 57.7 % (37.0-80.0) Lymphocytes (%) (Auto) 33.8 % (10.0-50.0) Monocytes (%) (Auto) 5.3 % (0.0-12.0) Eosinophils (%) (Auto) 2.2 % (0.0-7.0) Basophils (%) (Auto) 1.0 % (0.0-2.0) Neutrophils # (Auto) 3.9 10 ^3/uL (1.6-8.6) Lymphocytes # (Auto) 2.3 10 ^3/uL (0.4-5.4) Monocytes # (Auto) 0.4 10 ^3/uL (0-1.3) Eosinophils # (Auto) 0.1 10 ^3/uL (0-0.8) Basophils # (Auto) 0.1 10 ^3/uL (0-0.2) Nucleated Red Blood Cells 0.2 % Sodium Level 140 mmol/L (136-145) Potassium Level 3.8 mmol/L (3.5-5.1) Chloride Level 104 mmol/L (98-107) Carbon Dioxide Level 30 mmol/L (20-31) Anion Gap 6 (5-15) Blood Urea Nitrogen 9 mg/dL (9-23) Creatinine 0.71 mg/dL (0.700-1.30) Glomerular Filtration Rate Calc 103 mL/min (>90) BUN/Creatinine Ratio 12.7 (10.0-20.0) Serum Glucose 98 mg/dL (74-106) Calcium Level 9.3 mg/dL (8.7-10.4) Magnesium Level 2.0 mg/dL (1.6-2.6) Prothrombin Time 10.9 sec (9.3-11.8) Prothrombin Time INR 1.03 (0.9-1.15) Activated Partial Thromboplast Time 27.1 SEC (24.5-34.5) Test 01/21/25 06:20 01/20/25 05:33 01/20/25 05:10 01/19/25 10:24 CA 19-9 Antigen 9 U/mL (0-35) Hepatitis B Surface Antigen Negative (Negative) Hepatitis C Antibody Negative (Negative) Total Bilirubin 1.3 mg/dL (0.2-1.0) Aspartate Amino Transferase (AST) 10 U/L (13-40) Alanine Aminotransferase (ALT) < 9 U/L (7-40) Alkaline Phosphatase 41 U/L (46-116) Total Protein 6.2 g/dL (5.7-8.2) Albumin 3.9 g/dL (3.2-4.8) Urine Color Light-yellow (Yellow) Urine Clarity Clear (Clear) Urine pH 7.5 (5.0-9.0) Urine Specific [place] 1.031 (1.001-1.035) Urine Protein Negative (Negative) Urine Ketones Negative (Negative) Urine Blood Negative /uL (Negative) Urine Nitrite Negative (Negative) Urine Bilirubin Negative (Negative) Urine Urobilinogen Normal mg/dL (Negative) Urine Leukocyte Esterase Negative /uL (Negative) Urine RBC <1 /hpf (0 - 3) Urine Microscopic WBC 2 /HPF (0-3) Urine Squamous Epithelial Cells Few /hpf (<5) Urine Bacteria Few /hpf (None Seen) Urine Mucus Few (None Seen) Urine Glucose Normal mg/dL (Normal) Test 01/19/25 03:37 Hemoglobin A1c 5.8 % A1C (<5.7) Lipase 38 U/L (12-53) Other Laboratory Tests 01/24/25 05:00 01/23/25 05:13 Brief Hx & Hospital Course: 64-year-old gentleman admitted to the hospital from the emergency room with abdominal pain nausea and vomit. Initial abdominal CT found dilated common bile duct. There was hepatic lobe hemangioma a 2.7 cm. GI consultation obtained. EGD done showed mild gastritis. Colonoscopy showed one polyp in the rectum which was removed. And some hemorrhoid. Patient tolerated procedure well. He does have chronic pain from peripheral neuropathy as well. Patient is being discharged home with Protonix and Carafate. Follow up with GI as outpatient Condition at Discharge: Good Final Diagnosis/Problems List Abdominal pain secondary to gastritis Colon polyp status post resection with colonoscopy Hemorrhoids Hepatic hemangioma Spinal degenerative joint disease Fecal impaction Prediabetes Discharge Disposition: Home (With family) Discharge Instruct/Medications Diet: See Comment (No SCDs food. No spicy food.) Activity: No Restrictions, As Tolerated Follow Up/Referral: Follow up with PCP within one week Follow up with GI within two weeks Medications: Protonix 40 mg daily Carafate 1 g q.i.d. Resume previous home medications with gabapentin and metformin 35 Discharge Statement: "Patient was advised to return to the ER or call 911 if any headaches, dizziness, shortness of breath, chest pain, abdominal pain, bleeding, fevers, or worsening of medical condition. Patient was counseled about treatment plan, medications, possible side effects, patientverbalized understanding. All questions were answered to the best of my ability. This discharge took greater then 30 minutes in planning, reviewing documentation, counseling the patient, and discussing with other team members." ASSESSMENT ASSESSMENT Assessment Date of Service: Jan 25, 2025 Billing Provider: MARTY DIOP MD Common Visit Codes: [id number] DISCH DAY >30min MARTY DIOP MD Jan 25, 2025 11:16
[2025-01-25] MEDS ORDERED: PANT40TA2 PO (11:17)
[2025-01-25] MEDS ORDERED: SUCR1TAB31 OR (11:17)
[2025-01-25 12:19] VITALS: BP 118/77; PULSE 76; RESP 16; TEMP 97.8; O2SAT 100
[2025-01-25 12:30] VITALS: BP 124/78; PULSE 81; RESP 18; TEMP 99.6; O2SAT 98
--- NOTE | 2025-01-25 14:00 | DVHPN2 ---
Progress Note - Dictate Date Seen: Jan 25, 2025 (Late entry, patient seen at 12 noon) Medical Necessity Reason Pt with a Central, PICC or Fol: No Subjective No new complaints Patient is tolerating diet Discharge planning is in progress Results discussed with patient and family EGD showed mild gastritis Colonoscopy showed a hypertrophied anal papilla with superficial excoriation and a small rectosigmoid benign polyp vital signs Vital Sign Date Time Temp Pulse Resp B/P (MAP) Pulse Ox O2 Delivery O2 Flow Rate FiO2 01/25/25 12:19 97.8 76 16 100 01/25/25 08:30 118/77 (91) 01/25/25 08:00 Room Air* 0 21 Total Intake and Output 01/24/25 01/24/25 01/25/25 15:00 23:00 07:00 Intake Total 1500 ml 950 ml Output Total 650 ml Balance 1500 ml 300 ml objective General: NAD, AAOX3 Chest: lung lee clear to auscultation Heart: RRR, no murmur Abdomen: non-distended, mild epigastric tenderness to palpation, +BS Extremities without clubbing cyanosis or edema Neuro he is alert oriented x3 with no focal deficits laboratory and microbiology Laboratory Tests 01/24/25 05:00 01/23/25 05:13 Test 01/23/25 05:13 Range/Units Serum Glucose 98 74-106 mg/dL Problems(with codes): (1) Generalized weakness (2) Liver mass (3) Abdominal pain (4) Nausea and vomiting (5) Projectile vomiting with nausea Prognosis Plan Discharge planning is in progress Await biopsy results Patient is going to be seen in [facility] in one week to review pathology results I will notify patient if there was any abnormality otherwise patient will follow up with his PCP and with a gastro group Dietary Evaluation Review Comments: 1. Neuropathy consult for nerve pain. 2. for Wt Gains: Offer glucerna PO BID as supplements, consider a bland diet with catered likes and dislies and varities Expected Outcomes/Goals: wt gain, controlled DM, improved dietary tolerance. Plan discussed with: Patient, Spouse DEANGELO WILHELM MD Jan 25, 2025 14:00
== END 2025-01-25 13:14 | disposition home or self-care (01) | DRG 241 ==
LOC: ER 02:53 → EDBD 02:53 → OVERFLOW 07:26 → TELE-CENTR 21:22 → CENTRAL 01-21 10:45
PROVIDERS: ADMIT Internal Medicine; ATTEND Internal Medicine
PROC: 0DBQ8ZX Excision of Anus, Via Natural or Artificial Opening Endoscopic, Diagnostic (ICD-10-PCS; 2025-01-23)
PROC: 0DBN8ZZ Excision of Sigmoid Colon, Via Natural or Artificial Opening Endoscopic (ICD-10-PCS; 2025-01-23)
PROC: 0DB98ZX Excision of Duodenum, Via Natural or Artificial Opening Endoscopic, Diagnostic (ICD-10-PCS; principal; 2025-01-23 14:42)
PROC: 0DB68ZX Excision of Stomach, Via Natural or Artificial Opening Endoscopic, Diagnostic (ICD-10-PCS; 2025-01-23 14:42)
DX: K29.70 Gastritis, unspecified, without bleeding (principal); K83.8 Other specified diseases of biliary tract; E11.42 Type 2 diabetes mellitus with diabetic polyneuropathy; K86.89 Other specified diseases of pancreas; G62.9 Polyneuropathy, unspecified; D18.03 Hemangioma of intra-abdominal structures; E87.6 Hypokalemia; F10.10 Alcohol abuse, uncomplicated; R17 Unspecified jaundice; N32.89 Other specified disorders of bladder; K56.41 Fecal impaction; K63.5 Polyp of colon; F17.210 Nicotine dependence, cigarettes, uncomplicated; G89.29 Other chronic pain; F41.9 Anxiety disorder, unspecified; Z59.00 Homelessness unspecified; Z79.899 Other long term (current) drug therapy; Z79.84 Long term (current) use of oral hypoglycemic drugs
CPT/HCPCS: 36415; 71045; 74177; 74181; 74183; 80048; 80053; 81001; 82962; 83036; 83690; 83735; 84132; 85025; 85610; 85730; 86301; 86803; 86850; 86870; 86900; 86901; 87340; 93005; 96361; 96374; 96375; 99291; G0378; J1815; J2003; J2250; J2405; J2470; J2704; J3480

== ENCOUNTER 2025-05-03 21:58 | Emergency (ER) | payer MEDICAID ==
[~2025-05-03] VITALS: Ht 190.5 cm; Wt 77.2 kg
[~2025-05-03 21:58] MED LIST changes: +SUCR1TAB31 OR
[2025-05-03 22:35] LABS: Basophils # (auto) 0 10 ^3/uL (0-0.2); Basophils % (auto) 0.6 % (0.0-2.0); Eosinophils # (auto) 0 10 ^3/uL (0-0.8); Eosinophils % (auto) 0.1 % (0.0-7.0); Hemoglobin 13.5 g/dL (13.5-17.5); Lymphocytes # (auto) 1.4 10 ^3/uL (0.4-5.4); Lymphocytes % (auto) 22.9 % (10.0-50.0); Mean Corpuscular Hemoglobin 32.2 pg (28.0-32.0); Mean Corpuscular Hgb Conc. 34.6 g/dL (32.0-36.0); Monocytes # (auto) 0.3 10 ^3/uL (0-1.3); Monocytes % (auto) 4.7 % (0.0-12.0); Neutrophils # (auto) 4.4 10 ^3/uL (1.6-8.6); Neutrophils % (auto) 71.7 % (37.0-80.0); Nucleated Red Blood Cells % 0.1 %; Platelet Count (auto) 218 10^3/uL (140-450); Red Blood Cells 4.19 10^6/uL (4.5-5.90); Red Cell Distribution Width 13.8 % (11.8-14.3); White Blood Cell 6.1 10^3/uL (4.4-10.8)
[2025-05-03 22:53] LABS: Alanine Aminotransferase 10 U/L (7-40); Albumin 4.7 g/dL (3.2-4.8); Alkaline Phosphatase 57 U/L (46-116); Anion Gap 12 (5-15); Aspartate Aminotransferase 18 U/L (<34); Blood Urea Nitrogen 15 mg/dL (9-23); Calcium 9.4 mg/dL (8.7-10.4); Carbon Dioxide 25 mmol/L (20-31); Chloride 102 mmol/L (98-107); Sodium 139 mmol/L (136-145); Total Protein 7.4 g/dL (5.7-8.2)
[2025-05-03 22:54] LABS: Bilirubin, Total 1.1 mg/dL (0.2-1.0)
[2025-05-03 22:55] LABS: Glucose 147 mg/dL (74-106); Lipase 57 U/L (12-53); Potassium 3.3 mmol/L (3.5-5.1)
--- NOTE | 2025-05-03 23:10 | ED.PDOC ---
History of Present Illness HPI Comments 64 y/o Iranian speaking M presents with 3x day history of abdominal pain, nausea, and vomiting. Patient is a poor historian. He reports on pain radiating from his abdomen to his back and directly to his legs. Patient has a history of prediabetes, gastritis, hemorrhoids, hepatic hemangioma, colon polyp s/p re section with colonoscopy, and spinal degenerative joint disease. Denies any bloody or bilious vomitus, diarrhea, urinary symptoms, fever, chills, or further associated symptoms. Chief Complaint: Abdominal Pain Time Seen by MD: 22:10 Primary Care Provider: UNKNOWN Reviewed Notes: Nurses Notes, Medications, Allergies Allergies: Coded Allergies: NO KNOWN ALLERGIES (Unverified , 10/26/10) Home Meds Active Scripts Gabapentin (Once-Daily) (Gabapentin) 300 Mg Tab, 300 MG PO Q6HP PRN, #60 TAB Prov:LYNDSEY HALEY MD 05/04/25 Potassium Chloride (Potassium Chloride ER) 10 Meq Tab, 10 MEQ PO BID, #30 TAB Prov:LYNDSEY HALEY MD 05/04/25 Sucralfate (CARAFATE) 1 Gm Tab, 1 GM OR Q6H for 30 Days, #120 TAB Prov:MARTY DIOP MD 01/25/25 Pantoprazole Sodium Sesquihydr (Protonix) 40 Mg Tab, 40 MG PO DAILY for 30 Days, #30 TAB Prov:MARTY DIOP MD 01/25/25 Gabapentin (Gabapentin) 300 Mg Cap, 1 CAP PO TID for 30 Days, #90 CAP 5 Refills Prov:JOSE LUIS MOYA MD 08/25/24 Ibuprofen Micronized (Ibuprofen) 600 Mg Tab, 1 TAB PO Q8HPRN PRN, #20 TAB As needed for pain Prov:MODESTO GREEN Q PARAMEDICAL AIDE 03/03/24 Hydrocodone-Acetaminophen (Hydrocodone Bitartrate/AC 5-325 mg) 1 Tab Tab, 1 TAB PO DAILY for 5 Days, #5 TAB Prov:SUZY GALE MD 10/05/22 Pantoprazole Sodium Sesquihydr (Protonix) 40 Mg Tab, 40 MG PO DAILY for 10 Days, #10 TAB Prov:SUZY GALE MD 10/05/22 Reported Medications Gabapentin (Gabapentin) 600 Mg Tab, 1 TAB PO TID 07/10/24 Metformin Hydrochloride (Metformin Hcl) 850 Mg Tab, 1 TAB PO BID 07/10/24 Information Source: Patient Mode of Arrival: Wheelchair Severity: Moderate Timing: Days Duration: Since onset Prehospital treatment: None Past Medical History PAST MEDICAL HISTORY: DM (prediabetes), Liver (hepatic hemangioma) Past Medical History (Other): gastritis colon polyp s/p resection with colonoscopy hemorrhoids spinal degenerative joint disease Surgical History (Other): resection with colonoscopy Family History Family History: Reviewed,noncontributory to illness Social History Smoker: Cigarettes Alcohol: Occasionally Drugs: Denies Drug Use Lives In: Home All Other Systems: Reviewed and Negative (see HPI) Physical Exam General Appearance: No Apparent Distress, Normal HEENT: Normal ENT Inspection, Pharynx Normal, TMs Normal Neck: Full Range of Motion, Non-Tender, Normal, Normal Inspection Respiratory: Chest Non-Tender, Lungs Clear, No Accessory Muscle Use, No Respiratory Distress, Normal Breath Sounds Cardiovascular: No Edema, No JVD, No Murmur, No Gallop, Normal Peripheral Pulses, Regular Rate/Rhythm Breast Exam: Deferred Gastrointestinal: LLQ (tenderness ), LUQ (tenderness ), No Organomegaly, No Pulsatile Mass, Normal Bowel Sounds, RLQ (tenderness ), RUQ (tenderness ), Soft, Tenderness (mild tenderness in all four quadrants, no rebound or guarding ) Genitalia: Deferred Pelvic: Deferred Rectal: Deferred Extremities: No calf tenderness, Normal capillary refill, Normal inspection, Normal range of motion, Non-tender, No pedal edema Musculoskeletal : Apperance: Normal Neurologic: Alert, audio visual equipment rental clerk II-XII nml as Tested, No Motor Deficits, Normal Affect, Normal Mood, No Sensory Deficits Cerebellar Function: Normal Reflexes: Normal Skin: Dry, Normal Color, Warm Lymphatic: No Adenopathy Was a procedure done? Was a procedure done?: No Differential Dx Considerations may include: gastritis, gastroenteritis, viral syndrome, UTI, spoiled food, among others X-Ray, Labs, Meds, VS Vital Signs Date Time Temp Pulse Resp B/P (MAP) Pulse Ox O2 Delivery O2 Flow Rate FiO2 05/04/25 01:25 Room Air* 0 21 05/04/25 01:25 60 16 141/76 05/04/25 01:25 98.0 60 16 141/76 (97) 100 98.0 05/04/25 00:09 65 14 149/78 05/04/25 00:00 98.9 65 14 149/78 (101) 99 98.9 05/03/25 21:58 98.0 70 17 122/74 (90) 99 98.0 Lab Test 05/03/25 22:26 Range/Units White Blood Count 6.1 4.4-10.8 10^3/uL Red Blood Count 4.19 L 4.5-5.90 10^6/uL Hemoglobin 13.5 13.5-17.5 g/dL Hematocrit 39.0 L 41.0-53.0 % Mean Corpuscular Volume 93.0 80.0-100.0 fL Mean Corpuscular Hemoglobin 32.2 H 28.0-32.0 pg Mean Corpuscular Hemoglobin Concent 34.6 32.0-36.0 g/dL Red Cell Distribution Width 13.8 11.8-14.3 % Platelet Count 218 140-450 10^3/uL Mean Platelet Volume 7.9 6.9-10.8 fL Neutrophils (%) (Auto) 71.7 37.0-80.0 % Lymphocytes (%) (Auto) 22.9 10.0-50.0 % Monocytes (%) (Auto) 4.7 0.0-12.0 % Eosinophils (%) (Auto) 0.1 0.0-7.0 % Basophils (%) (Auto) 0.6 0.0-2.0 % Neutrophils # (Auto) 4.4 1.6-8.6 10 ^3/uL Lymphocytes # (Auto) 1.4 0.4-5.4 10 ^3/uL Monocytes # (Auto) 0.3 0-1.3 10 ^3/uL Eosinophils # (Auto) 0 0-0.8 10 ^3/uL Basophils # (Auto) 0 0-0.2 10 ^3/uL Nucleated Red Blood Cells 0.1 % Sodium Level 139 136-145 mmol/L Potassium Level 3.3 L 3.5-5.1 mmol/L Chloride Level 102 98-107 mmol/L Carbon Dioxide Level 25 20-31 mmol/L Anion Gap 12 5-15 Blood Urea Nitrogen 15 9-23 mg/dL Creatinine 0.75 0.700-1.30 mg/dL Glomerular Filtration Rate Calc 101 >90 mL/min BUN/Creatinine Ratio 20.0 10.0-20.0 Serum Glucose 147 H 74-106 mg/dL Calcium Level 9.4 8.7-10.4 mg/dL Total Bilirubin 1.1 H 0.2-1.0 mg/dL Aspartate Amino Transferase (AST) 18 <34 U/L Alanine Aminotransferase (ALT) 10 7-40 U/L Alkaline Phosphatase 57 46-116 U/L Total Protein 7.4 5.7-8.2 g/dL Albumin 4.7 3.2-4.8 g/dL Lipase 57 H 12-53 U/L Current Medications Medications (Trade) Dose Ordered Sig/Devan Route Start Time Stop Time Status Last Admin Ondansetron HCl (Zofran) 4 mg ONCE ONCE IV 05/03/25 22:30 05/03/25 22:31 DC 05/04/25 00:09 Sodium Chloride 1,000 ml @ 1,000 mls/hr Q1H ONCE IVB 05/03/25 22:30 05/03/25 23:29 DC 05/04/25 00:05 Famotidine (Pepcid Injection) 20 mg ONCE ONCE IV 05/03/25 22:30 05/03/25 22:31 DC 05/04/25 00:09 Al Hydrox/Mg Hydrox/Simethicone (Maalox Plus) 30 ml ONCE ONCE PO 05/03/25 22:30 05/03/25 22:31 DC 05/04/25 00:08 Morphine Sulfate 4 mg ONCE ONCE IV 05/03/25 22:45 05/03/25 22:46 DC 05/04/25 00:09 Time of 1ST Reevaluation: 22:40 Reevaluation 1ST: Unchanged Patient Education/Counseling: Diagnosis, Treatment, Need For Follow Up Family Education/Counseling: No Family Present Departure 1 Departure Time of Disposition: 23:31 Impression: Primary Impression: Abdominal pain Disposition: 01 HOME / SELF CARE / HOMELESS Condition: Stable e-Prescriptions Gabapentin (Once-Daily) (Gabapentin) 300 Mg Tab 300 MG PO Q6HP PRN, #60 TAB Prov: LYNDSEY HALEY MD 05/04/25 Potassium Chloride (Potassium Chloride ER) 10 Meq Tab 10 MEQ PO BID, #30 TAB Prov: LYNDSEY HALEY MD 05/04/25 Discharged With: Self Critical Care Note Critical Care Time?: No Stability Stability form required: No Heart Score Heart Score: Heart Score Response (Comments) Value History N/A 0 EKG N/A 0 Age N/A 0 Risk Factors N/A 0 Troponin N/A 0 Total 0 I personally scribed for LYNDSEY HALEY MD ([email or web address]) on 05/03/25 at 23:10. Electronically submitted by Stanley Marie ([email or web address]). LYNDSEY HALEY MD May 03, 2025 23:10
--- NOTE | 2025-05-03 23:48 | DVH ---
CLINICAL HISTORY: abd pain TECHNIQUE: CT of the abdomen and pelvis was performed with intravenous contrast. 100 mL Omnipaque 300 This exam was performed according to our departmental dose optimization program. Up-to-date CT equip ment and radiation dose reduction techniques are utilized as appropriate. CTDIVol: 6.26 mGy DLP: 353.61 mGy-cm WID: COMPARISON: CT CT AB PEL WITH IV CON ONLY on DOS: 01/19/25, FINDINGS: Lower Thorax: Moderate aortic valve calcification partially imaged. At least mild coronary artery ca lcifications are seen. Normal-sized heart with trace pericardial fluid. Lung bases are clear. Liver and Biliary system: Normal-sized liver. Enhancing hemangioma in segment 6 of the liver on serie s 2, image 39. Major portal veins are patent. The gallbladder is normal caliber. There is no biliary ductal dilatation. Spleen: Unremarkable. Adrenal Glands and Kidneys: Unremarkable. Pancreas and Retroperitoneum: Mild prominence of the pancreatic duct at the pancreatic head. Otherwi se unremarkable pancreas. No retroperitoneal lymphadenopathy. Aorta and Major Vessels: Aortoiliac vessels are patent and normal caliber with mild calcified atheros clerotic plaque. Bowel, Mesentery and Peritoneal space: Normal Caliber small and large bowel. Normal appendix. No free air or fluid collection. Pelvis: Circumferential bladder wall thickening. Mild prostatomegaly containing dystrophic calcificat ions. There is no pelvic lymphadenopathy. Abdominal wall and Osseous Structures: Mild lower thoracic and lumbar spondylosis. Mild osteoarthriti s of the bilateral hips. There is a sebaceous cyst overlying the mid left sacrum. IMPRESSION: 1. Mild bladder wall thickening which could be related to chronic bladder outlet obstruction in the s etting of mild prostatomegaly. Correlate with urinalysis if there is clinical concern for cystitis. 2. Moderate aortic valve calcification and mild coronary artery calcifications partially imaged. 3. Hemangioma in segment 6 of the liver.
[2025-05-04] MEDS: IOHEXOL 300 MG/ML 100ML BOTTLE IJ ONE
[2025-05-04] MEDS: SODIUM CHLORIDE 0.9% 1,000 ML IVB ONE (00:05)
[2025-05-04] MEDS: MAALOX PLUS or MAALOX 30 ML PO ONE (00:08)
[2025-05-04] MEDS: ONDANSETRON HCL 4 MG/2 ML VIAL IV ONE (00:09)
[2025-05-04] MEDS: MORPHINE SULFATE 4 MG/ML SYR/VIAL IV ONE (00:09)
[2025-05-04] MEDS: FAMOTIDINE (10MG/ML) 2ML VL IV ONE (00:09)
[2025-05-04] MEDS ORDERED: POTA-228 PO (00:34)
[2025-05-04] MEDS ORDERED: GABA300T4 PO (00:34)
[2025-05-04 01:25] VITALS: BP 141/76; PULSE 60; RESP 16; TEMP 98; O2SAT 100
== END 2025-05-04 01:27 | disposition home or self-care (01) ==
LOC: ER 21:58
DX: R10.84 Generalized abdominal pain (principal); R11.2 Nausea with vomiting, unspecified; F10.90 Alcohol use, unspecified, uncomplicated; F17.210 Nicotine dependence, cigarettes, uncomplicated; E11.9 Type 2 diabetes mellitus without complications; Z79.84 Long term (current) use of oral hypoglycemic drugs; Z79.899 Other long term (current) drug therapy; Z86.0100 Personal history of colon polyps, unspecified; Z87.19 Personal history of other diseases of the digestive system; Z98.890 Other specified postprocedural states; Z87.898 Personal history of other specified conditions; Y90.9 Presence of alcohol in blood, level not specified
CPT/HCPCS: 36415; 74177; 80053; 83690; 85025; 96361; 96374; 96375; 99285; J2270; J2405; J3490; J7030; Q9967

== ENCOUNTER 2025-05-06 12:26 | Inpatient (IN) | payer MEDICAID ==
[~2025-05-06] VITALS: Ht 190.5 cm; Wt 70.3 kg
[~2025-05-06 12:26] MED LIST changes: +GABA300T4 PO; +POTA-228 PO
--- NOTE | 2025-05-06 13:04 | ED.PDOC ---
Back pain HPI HPI Comments 64 y/o M, presents to the ED for CC of body pain. Patient states, that he has been experiencing generalized body pain with associated weakness and fatigue [id number]. Patient reports, that he has unexplained weight loss in the past year losing approximately 136 lbs. Patient denies active bleeding, melena, nausea, vomiting, or diarrhea. No other symptoms or modifying factors present at this time. Chief Complaint: Nausea/Vomiting Time Seen by MD: 12:58 Primary Care Provider: UNKNOWN Reviewed Notes: Nurses Notes, Medications, Allergies Allergies: Coded Allergies: NO KNOWN ALLERGIES (Unverified , 10/26/10) Home Meds Active Scripts Gabapentin (Once-Daily) (Gabapentin) 300 Mg Tab, 300 MG PO Q6HP PRN, #60 TAB Prov:LYNDSEY HALEY MD 05/04/25 Potassium Chloride (Potassium Chloride ER) 10 Meq Tab, 10 MEQ PO BID, #30 TAB Prov:LYNDSEY HALEY MD 05/04/25 Sucralfate (CARAFATE) 1 Gm Tab, 1 GM OR Q6H for 30 Days, #120 TAB Prov:MARTY DIOP MD 01/25/25 Pantoprazole Sodium Sesquihydr (Protonix) 40 Mg Tab, 40 MG PO DAILY for 30 Days, #30 TAB Prov:MARTY DIOP MD 01/25/25 Gabapentin (Gabapentin) 300 Mg Cap, 1 CAP PO TID for 30 Days, #90 CAP 5 Refills Prov:JOSE LUIS MOYA MD 08/25/24 Ibuprofen Micronized (Ibuprofen) 600 Mg Tab, 1 TAB PO Q8HPRN PRN, #20 TAB As needed for pain Prov:MODESTO GREEN Q VENDETTE 03/03/24 Hydrocodone-Acetaminophen (Hydrocodone Bitartrate/AC 5-325 mg) 1 Tab Tab, 1 TAB PO DAILY for 5 Days, #5 TAB Prov:SUZY GALE MD 10/05/22 Pantoprazole Sodium Sesquihydr (Protonix) 40 Mg Tab, 40 MG PO DAILY for 10 Days, #10 TAB Prov:SUZY GALE MD 10/05/22 Reported Medications Gabapentin (Gabapentin) 600 Mg Tab, 1 TAB PO TID 07/10/24 Metformin Hydrochloride (Metformin Hcl) 850 Mg Tab, 1 TAB PO BID 07/10/24 Information Source: Patient Mode of Arrival: Ambulatory Timing: Months Duration: Since onset Severity: Moderate Prehospital treatment: None Onset: Spontaneous History of: None Modifying Factors: Nothing Associated signs and symptoms: None Past Medical History PAST MEDICAL HISTORY: DM, Liver Family History Family History: Reviewed,noncontributory to illness Social History Smoker: Cigarettes Alcohol: Occasionally Drugs: Marijuana Lives In: Home Constitutional: denies: chills, diaphoresis, fatigue, fever, malaise, sweats, weakness, others EENTM: denies: blurred vision, double vision, ear bleeding, ear discharge, ear drainage, ear pain, ear ringing, eye pain, eye redness, hearing loss, mouth pain, mouth swelling, nasal discharge, nose bleeding, nose congestion, nose pain, photophobia, tearing, throat pain, throat swelling, voice changes, others Respiratory: denies: cough, hemoptysis, orthopnea, SOB at rest, shortness of breath, SOB with excertion, stridor, wheezing, others Cardiovascular: denies: chest pain, dizzy spells, diaphoresis, Dyspnea on exertion, edema, irregular heart beat, left arm pain, lightheadedness, palpitations, PND, syncope, others Gastrointestinal: denies: abdomen distended, abdominal pain, blood streaked bowels, constipated, diarrhea, dysphagia, difficulty swallowing, hematemesis, melena, nausea, poor appetite, poor fluid intake, rectal bleeding, rectal pain, vomiting, others Genitourinary: denies: burning, dysuria, flank pain, frequency, hematuria, incontinence, penile discharge, penile sore, pain, testicle pain, testicle swelling, urgency, others Neurological: denies: dizziness, fainting, headache, left sided numbness, left sided weakness, numbness, paresthesia, pre-existing deficit, right sided numbness, right sided weakness, seizure, speech problems, tingling, tremors, wea kness, others Musculoskeletal: reports: others (BODY PAIN); denies: back pain, gout, joint pain, joint swelling, muscle pain, muscle stiffness, neck pain Integumetry: denies: bruises, change in color, change in hair/nails, dryness, laceration, lesions, lumps, rash, wounds, others Allergic/Immunocompromised: denies: Difficulty Healing, Frequent Infections, Hives, Itching, others Hematologic/Lymphatic: denies: anemia, blood clots, easy bleeding, easy bruising, swollen glands, others Endocrine: denies: excessive hunger, excessive sweating, excessive thirst, excessive urination, flushing, intolerance to cold, intolerance to heat, une xplained weight gain, unexplained weight loss, others Psychiatric: denies: anxiety, bipolar disorder, depression, hopeless, panic disorder, schizophrenia, sleepless, suicidal, others All Other Systems: Reviewed and Negative Physical Exam General Appearance: Moderate Distress, Thin HEENT: Normal ENT Inspection, Pharynx Normal, TMs Normal Neck: Full Range of Motion, Non-Tender, Normal, Normal Inspection Respiratory: Chest Non-Tender, Lungs Clear, No Accessory Muscle Use, No Respiratory Distress, Normal Breath Sounds Cardiovascular: No Edema, No JVD, No Murmur, No Gallop, Normal Peripheral Pulses, Regular Rate/Rhythm Breast Exam: Deferred Gastrointestinal: No Organomegaly, Non Tender, No Pulsatile Mass, Normal Bowel Sounds, Soft Genitalia: Deferred Pelvic: Deferred Rectal: Deferred Extremities: No calf tenderness, Normal capillary refill, No pedal edema Musculoskeletal : Apperance: Normal Neurologic: Alert, substation design draftsperson II-XII nml as Tested, Motor Weakness, Normal Affect, Normal Mood, No Sensory Deficits Cerebellar Function: Normal Reflexes: Normal Skin: Dry, Normal Color, Warm Lymphatic: No Adenopathy Was a procedure done? Was a procedure done?: No Back Pain Differential Dx Differential Diagnosis: Other (DEHYDRATION, ELECTROLYTE IMBALANCE, COLITIS, IBS) X-Ray, Labs, Meds, VS Vital Signs Date Time Temp Pulse Resp B/P (MAP) Pulse Ox O2 Delivery O2 Flow Rate FiO2 05/06/25 17:55 97.4 61 16 170/83 (112) 100 97.4 05/06/25 14:51 99.0 75 18 123/69 (87) 99 99.0 05/06/25 12:58 98.4 102 20 109/81 (90) 98 98.4 Lab Test 05/06/25 13:41 05/06/25 12:48 Range/Units White Blood Count 4.6 4.4-10.8 10^3/uL Red Blood Count 4.55 4.5-5.90 10^6/uL Hemoglobin 14.8 13.5-17.5 g/dL Hematocrit 42.1 41.0-53.0 % Mean Corpuscular Volume 92.5 80.0-100.0 fL Mean Corpuscular Hemoglobin 32.5 H 28.0-32.0 pg Mean Corpuscular Hemoglobin Concent 35.1 32.0-36.0 g/dL Red Cell Distribution Width 13.3 11.8-14.3 % Platelet Count 239 140-450 10^3/uL Mean Platelet Volume 8.0 6.9-10.8 fL Neutrophils (%) (Auto) 65.6 37.0-80.0 % Lymphocytes (%) (Auto) 28.9 10.0-50.0 % Monocytes (%) (Auto) 5.2 0.0-12.0 % Eosinophils (%) (Auto) 0.0 0.0-7.0 % Basophils (%) (Auto) 0.3 0.0-2.0 % Neutrophils # (Auto) 3.0 1.6-8.6 10 ^3/uL Lymphocytes # (Auto) 1.3 0.4-5.4 10 ^3/uL Monocytes # (Auto) 0.2 0-1.3 10 ^3/uL Eosinophils # (Auto) 0 0-0.8 10 ^3/uL Basophils # (Auto) 0 0-0.2 10 ^3/uL Nucleated Red Blood Cells 0.1 % Sodium Level 141 136-145 mmol/L Potassium Level 3.7 3.5-5.1 mmol/L Chloride Level 102 98-107 mmol/L Carbon Dioxide Level 29 20-31 mmol/L Anion Gap 10 5-15 Blood Urea Nitrogen 11 9-23 mg/dL Creatinine 1.00 0.700-1.30 mg/dL Glomerular Filtration Rate Calc 85 >90 mL/min BUN/Creatinine Ratio 11.0 10.0-20.0 Serum Glucose 137 H 74-106 mg/dL Calcium Level 10.0 8.7-10.4 mg/dL Urine Color Light-yellow Yellow Urine Clarity Turbid H Clear Urine pH 7.0 5.0-9.0 Urine Specific [place] 1.014 1.001-1.035 Urine Protein Negative Negative Urine Ketones 1+ H Negative Urine Blood Negative Negative /uL Urine Nitrite Negative Negative Urine Bilirubin Negative Negative Urine Urobilinogen Normal Negative mg/dL Urine Leukocyte Esterase Negative Negative /uL Urine RBC 1 0 - 3 /hpf Urine Microscopic WBC 1 0-3 /HPF Urine Squamous Epithelial Cells Few <5 /hpf Urine Bacteria None seen None Seen /hpf Urine Hyaline Casts Few 0 - 2 /lpf Urine Mucus Few None Seen Urine Glucose Normal Normal mg/dL Current Medications Medications (Trade) Dose Ordered Sig/Devan Route Start Time Stop Time Status Last Admin Sodium Chloride 1,000 ml @ 1,000 mls/hr Q1H ONCE IV 05/06/25 13:00 05/06/25 13:59 DC 05/06/25 15:37 CXR: IMPRESSION: No acute disease. CT ABD PEL: IMPRESSION: 1. Compared to recent prior CT performed with contrast no significant change. There is mild diffuse bladder wall thickening. This could be due to mild bladder outlet obstruction or cystitis. Evaluation of bowel limited lack of IV and oral contrast The urine test is negative at this time The patient is CBC and chemistry panel are within normal limits The patient has had a significant amount of weight loss The patient's seems to have failure to thrive We are going to admit the patient at this time The patient understands and agrees with the management Images Reviewed?: Images reviewed and evaluated by me Time of 1ST Reevaluation: 13:22 Reevaluation 1ST: Unchanged Patient Education/Counseling: Diagnosis, Treatment Family Education/Counseling: No Family Present SEPSIS Sepsis Screen Physician Orders Chest Portable (05/06/25 12:59) Heplock Iv (05/06/25 12:59) Mitten Sewer (05/06/25 12:59) Blood Pressure (05/06/25 12:59) Pulse Oximetry (05/06/25 12:59) Ct Ab Pel Wo Con-No Oral Or Iv (05/06/25 12:59) Vital Signs Date Time Temp Pulse Resp B/P (MAP) Pulse Ox O2 Delivery O2 Flow Rate FiO2 05/06/25 17:55 97.4 61 16 170/83 (112) 100 97.4 05/06/25 14:51 99.0 75 18 123/69 (87) 99 99.0 05/06/25 12:58 98.4 102 20 109/81 (90) 98 98.4 Laboratory Tests Test 05/06/25 13:41 White Blood Count 4.6 10^3/uL (4.4-10.8) Medications Medications Dose Ordered Sig/Devan Route Start Time Stop Time Status Last Admin Dose Admin Sodium Chloride 1,000 ml @ 1,000 mls/hr Q1H ONCE IV 05/06/25 13:00 05/06/25 13:59 DC 05/06/25 15:37 Departure 1 Departure Time of Disposition: 18:20 Impression: Primary Impression: Abdominal pain of unknown etiology Additional Impression: Failure to thrive Qualified Codes: R62.7 - Adult failure to thrive Disposition: ADMITTED INPATIENT Admit to: Med Surg Condition: Fair Critical Care Note Critical Care Time?: No Stability Stability form required: Yes Unstable for transfer: ED Physician Assesment (Clinical assesment) Heart Score Heart Score: Heart Score Response (Comments) Value History N/A 0 EKG N/A 0 Age N/A 0 Risk Factors N/A 0 Troponin N/A 0 Total 0 I personally scribed for DAVID WAGNER MD ([email or web address]) on 05/06/25 at 13:04. Electronically submitted by Aida Johnson ([email or web address]). I personally scribed for DAVID WAGNER MD ([email or web address]) on 05/06/25 at 13:34. Electronically submitted by Aida Johnson ([email or web address]). I personally scribed for DAVID WAGNER MD ([email or web address]) on 05/06/25 at 14:44. Electronically submitted by Aida Johnson ([email or web address]). I personally scribed for DAVID WAGNER MD ([email or web address]) on 05/06/25 at 14:45. Electronically submitted by Aida Johnson ([email or web address]). DAVID WAGNER MD May 06, 2025 13:04
[2025-05-06 13:24] LABS: Urine Bacteria None Seen /hpf (None Seen)
[2025-05-06 13:27] LABS: Urine Blood Negative /uL (Negative); Urine Clarity Turbid (Clear); Urine Color Light-Yellow (Yellow); Urine Hyaline Cast FEW /lpf (0 - 2); Urine Mucus FEW (None Seen); Urine Protein, UAD Negative (Negative); Urine Specific Gravity 1.014 (1.001-1.035); Urine Squamous Epithelial Cell FEW /hpf (<5); Urine Urobilinogen Normal (Negative); Urine WBC 1 /HPF (0-3)
--- NOTE | 2025-05-06 13:27 | DVH ---
CHEST RADIOGRAPH Indication: sob Technique: Single frontal view of the chest was obtained COMPARISON: XY CHEST XRAY 1 VIEW on DOS: 01/23/25 FINDINGS: Lines and Tubes: None Lungs: Clear Pleura: No effusion. No pneumothorax. Cardiomediastinal contours: Unremarkable Bones: Unremarkable IMPRESSION: No acute disease.
--- NOTE | 2025-05-06 13:47 | DVH ---
CT abdomen and pelvis without oral or IV Comparison: 05/03/2025 INDICATION: pain TECHNIQUE: Serial axial images were performed through the abdomen and pelvis and then reformatted in the sagittal and coronal plane. All CT scans at this medical facility are performed using dose modula tion techniques as appropriate to a performed exam including the following: Automated exposure contro l was utilized; adjustment of the MA and/or KvP according to patient size; and use of iterative recon struction technique. FINDINGS: Liver and spleen are normal in size without focal mass. No renal masses, stones or hydronep hrosis. No masses or enlargement of the adrenal glands or pancreas. No biliary dilatation. No gallsto richelle. No distention of bowel loops to suggest mechanical obstruction of bowel. The appendix is normal in appearance. No free fluid. Within the pelvis, bladder wall slightly thickened. Prostate gland is p rominent. No abnormal masses or fluid collections. IMPRESSION: 1. Compared to recent prior CT performed with contrast no significant change. There is mild diffuse b ladder wall thickening. This could be due to mild bladder outlet obstruction or cystitis. Evaluation of bowel limited lack of IV and oral contrast Computed Tomographic Radiation Dosimetry Report: Total CTDI vol = 9 mGy Total DLP = 494 mGy-cm Low do se protocols were performed.
[2025-05-06 13:56] LABS: Basophils # (auto) 0 10 ^3/uL (0-0.2); Basophils % (auto) 0.3 % (0.0-2.0); Eosinophils # (auto) 0 10 ^3/uL (0-0.8); Hematocrit 42.1 % (41.0-53.0); Hemoglobin 14.8 g/dL (13.5-17.5); Lymphocytes # (auto) 1.3 10 ^3/uL (0.4-5.4); Lymphocytes % (auto) 28.9 % (10.0-50.0); Mean Corpuscular Hemoglobin 32.5 pg (28.0-32.0); Mean Corpuscular Hgb Conc. 35.1 g/dL (32.0-36.0); Mean Corpuscular Volume 92.5 fL (80.0-100.0); Monocytes # (auto) 0.2 10 ^3/uL (0-1.3); Monocytes % (auto) 5.2 % (0.0-12.0); Neutrophils % (auto) 65.6 % (37.0-80.0); Nucleated Red Blood Cells % 0.1 %; Platelet Count (auto) 239 10^3/uL (140-450); Red Blood Cells 4.55 10^6/uL (4.5-5.90); Red Cell Distribution Width 13.3 % (11.8-14.3); White Blood Cell 4.6 10^3/uL (4.4-10.8)
[2025-05-06 14:05] LABS: Chloride 102 mmol/L (98-107); Potassium 3.7 mmol/L (3.5-5.1); Sodium 141 mmol/L (136-145)
[2025-05-06 14:06] LABS: Anion Gap 10 (5-15); Carbon Dioxide 29 mmol/L (20-31)
[2025-05-06 14:11] LABS: Blood Urea Nitrogen 11 mg/dL (9-23)
[2025-05-06 14:12] LABS: Glucose 137 mg/dL (74-106)
[2025-05-06] MEDS: SODIUM CHLORIDE 0.9% 1,000 ML IV ONE (15:37)
[2025-05-06] MEDS: ONDANSETRON HCL 4 MG/2 ML VIAL IV ONE (18:38)
[2025-05-06] MEDS: MORPHINE SULFATE 4 MG/ML SYR/VIAL IV ONE (18:38)
[2025-05-06 19:26] VITALS: PULSE 65; RESP 18; O2SAT 98
[2025-05-06] MEDS ORDERED: ACETAMINOPHEN 325 MG TAB PO PRN (20:15)
--- NOTE | 2025-05-06 20:22 | DVHHP2 ---
Admitting Diagnosis: Weakness Weight loss History of Present Illness 64 y/o M, presents to the ED for CC of body pain. Patient states, that he has been experiencing generalized body pain with associated weakness and fatigue [id number]. Patient reports, that he has unexplained weight loss in the past year losing approximately 136 lbs. Patient denies active bleeding, melena, nausea, vomiting, or diarrhea. No other symptoms or modifying factors present at this time. PAST MEDICAL HISTORY: DM, Liver Family History Family History: Reviewed,noncontributory to illness Social History Smoker: Cigarettes Alcohol: Occasionally Drugs: Marijuana Lives In: Home Patient Family History: Patient reports no known family medical history. Allergies: Coded Allergies: NO KNOWN ALLERGIES (Unverified , 10/26/10) Home Meds Active Scripts Gabapentin (Once-Daily) (Gabapentin) 300 Mg Tab, 300 MG PO Q6HP PRN, #60 TAB Prov:LYNDSEY HALEY MD 05/04/25 Potassium Chloride (Potassium Chloride ER) 10 Meq Tab, 10 MEQ PO BID, #30 TAB Prov:LYNDSEY HALEY MD 05/04/25 Sucralfate (CARAFATE) 1 Gm Tab, 1 GM OR Q6H for 30 Days, #120 TAB Prov:MARTY DIOP MD 01/25/25 Pantoprazole Sodium Sesquihydr (Protonix) 40 Mg Tab, 40 MG PO DAILY for 30 Days, #30 TAB Prov:MATRY DIOP MD 01/25/25 Gabapentin (Gabapentin) 300 Mg Cap, 1 CAP PO TID for 30 Days, #90 CAP 5 Refills Prov:JOSE LUIS MOYA MD 08/25/24 Ibuprofen Micronized (Ibuprofen) 600 Mg Tab, 1 TAB PO Q8HPRN PRN, #20 TAB As needed for pain Prov:MODESTO GREEN Q SCRIPT SUPERVISOR 03/03/24 Hydrocodone-Acetaminophen (Hydrocodone Bitartrate/AC 5-325 mg) 1 Tab Tab, 1 TAB PO DAILY for 5 Days, #5 TAB Prov:SUZY GALE MD 10/05/22 Pantoprazole Sodium Sesquihydr (Protonix) 40 Mg Tab, 40 MG PO DAILY for 10 Days, #10 TAB Prov:SUZY GALE MD 10/05/22 Reported Medications Gabapentin (Gabapentin) 600 Mg Tab, 1 TAB PO TID 07/10/24 Metformin Hydrochloride (Metformin Hcl) 850 Mg Tab, 1 TAB PO BID 07/10/24 Current Medications Current Medications Medications (Trade) Dose Ordered Sig/Devan Route PRN Reason Start Time Stop Time Status Last Admin Ceftriaxone Sodium 50 ml @ 100 mls/hr DAILY IV 05/06/25 20:15 Sodium Chloride (Saline Lock Ns) 10 ml Q8HR IV 05/06/25 22:00 Docusate Sodium (Colace Capsule) 100 mg BIDPRN PRN PO FOR CONSTIPATION 05/06/25 20:15 Acetaminophen (Tylenol Tablet) 650 mg Q6HP PRN PO PAIN SCALE 1-3 OR TEMP>100.4 05/06/25 20:15 Acetaminophen/ Hydrocodone Bitart ([place] 5/325MG Tab) 1 tab Q4HP PRN PO MODERATE PAIN (4-6 PAIN SCALE) 05/06/25 20:15 Ondansetron HCl (Zofran) 4 mg Q4HP PRN IV NAUSEA / VOMITING 05/06/25 20:15 Enoxaparin Sodium (Lovenox) 40 mg DAILY SC 05/07/25 10:00 Vital Signs Vital Signs Date Time Temp Pulse Resp B/P (MAP) Pulse Ox O2 Delivery O2 Flow Rate FiO2 05/06/25 19:26 65 18 98 Room Air* 0 21 21 05/06/25 19:24 99.0 119/79 (92) 99.0 Physical Exam Generalized -64 years old male, covered by blanket, resting in bed. No apparent distress HEENT-atraumatic, normocephalic Heart-regular rate and rhythm Lungs clear to auscultate bilaterally Abdomen soft nontender nondistended Musculoskeletal-no edema cyanosis Neuro-somnolent, strength and sensory intact Results Labs Test 05/06/25 13:41 05/06/25 12:48 Range/Units White Blood Count 4.6 4.4-10.8 10^3/uL Red Blood Count 4.55 4.5-5.90 10^6/uL Hemoglobin 14.8 13.5-17.5 g/dL Hematocrit 42.1 41.0-53.0 % Mean Corpuscular Volume 92.5 80.0-100.0 fL Mean Corpuscular Hemoglobin 32.5 H 28.0-32.0 pg Mean Corpuscular Hemoglobin Concent 35.1 32.0-36.0 g/dL Red Cell Distribution Width 13.3 11.8-14.3 % Platelet Count 239 140-450 10^3/uL Mean Platelet Volume 8.0 6.9-10.8 fL Neutrophils (%) (Auto) 65.6 37.0-80.0 % Lymphocytes (%) (Auto) 28.9 10.0-50.0 % Monocytes (%) (Auto) 5.2 0.0-12.0 % Eosinophils (%) (Auto) 0.0 0.0-7.0 % Basophils (%) (Auto) 0.3 0.0-2.0 % Neutrophils # (Auto) 3.0 1.6-8.6 10 ^3/uL Lymphocytes # (Auto) 1.3 0.4-5.4 10 ^3/uL Monocytes # (Auto) 0.2 0-1.3 10 ^3/uL Eosinophils # (Auto) 0 0-0.8 10 ^3/uL Basophils # (Auto) 0 0-0.2 10 ^3/uL Nucleated Red Blood Cells 0.1 % Sodium Level 141 136-145 mmol/L Potassium Level 3.7 3.5-5.1 mmol/L Chloride Level 102 98-107 mmol/L Carbon Dioxide Level 29 20-31 mmol/L Anion Gap 10 5-15 Blood Urea Nitrogen 11 9-23 mg/dL Creatinine 1.00 0.700-1.30 mg/dL Glomerular Filtration Rate Calc 85 >90 mL/min BUN/Creatinine Ratio 11.0 10.0-20.0 Serum Glucose 137 H 74-106 mg/dL Calcium Level 10.0 8.7-10.4 mg/dL Urine Color Light-yellow Yellow Urine Clarity Turbid H Clear Urine pH 7.0 5.0-9.0 Urine Specific [place] 1.014 1.001-1.035 Urine Protein Negative Negative Urine Ketones 1+ H Negative Urine Blood Negative Negative /uL Urine Nitrite Negative Negative Urine Bilirubin Negative Negative Urine Urobilinogen Normal Negative mg/dL Urine Leukocyte Esterase Negative Negative /uL Urine RBC 1 0 - 3 /hpf Urine Microscopic WBC 1 0-3 /HPF Urine Squamous Epithelial Cells Few <5 /hpf Urine Bacteria None seen None Seen /hpf Urine Hyaline Casts Few 0 - 2 /lpf Urine Mucus Few None Seen Urine Glucose Normal Normal mg/dL Primary Diagnosis Generalized weakness Diffuse body pain Abnormal weight loss Plan Patient is somnolent, covered with blanket, resting in bed. Unclear etiology Possible rheumatic disease, possible drug usage Check CT head Check urine drug studies Check ESR, CRP, procalcitonin, CK IV fluids Regular diet Dietitian consult Full code Lovenox for DVT prophylaxis PPI prophylaxis Plan discussed with: Patient Problems List: (1) Failure to thrive Status: Acute Date of Service: May 06, 2025 Billing Provider: EMILIE DESHPANDE MD Common Visit Codes: [id number] INP/OBS CARE (MOD) EMILIE DESHPANDE MD May 06, 2025 20:22
[2025-05-06 20:47] LABS: Creatine Kinase IFCC 124 U/L (46-171)
[2025-05-06 20:49] LABS: CRP High Sensitivity < 0.02 mg/dL (<1.0)
[2025-05-06 21:09] LABS: Triglycerides 71 mg/dL (< 150)
[2025-05-06 21:11] LABS: Cholesterol 188 mg/dL (< 200); HDL Cholesterol 48 mg/dL (40-59)
[2025-05-06] MEDS: cefTRIAXone 1GM/50ML D5W 50 ML IV SCH (21:13)
--- NOTE | 2025-05-06 21:17 | DVH ---
EXAM: CT HEAD WITHOUT CONTRAST INDICATION: weakness r/o cva TECHNIQUE: CT of the head without intravenous contrast. Radiation Dose : 1. Head: CT Dose: CTDI volume is 53.38 mGy. Dose-length product is 857.36 mGy*cm The dose indicators for CT are the volume Computed Tomography (CT) Dose Index (CTDIvol) and the Dose Length Product (DLP), and are measured in units of mGy and mGy-cm, respectively. These indicators are not patient dose, but values generated from the CT scanner acquisition factors. The report includes radiation exposure data for exposures received during this examination. COMPARISON: None FINDINGS: There is no evidence of acute intracranial hemorrhage, extra-axial collection, mass effect, midline s hift, herniation or hydrocephalus. The ventricles, sulci and cisterns are age appropriate. The simon-white differentiation is intact. Patchy periventricular and subcortical white matter hypoattenuation is nonspecific but may be related to small vessel ischemic disease. The visualized paranasal sinuses and mastoid air cells are clear. The surrounding soft tissues and osseous structures are unremarkable. IMPRESSION: No acute intracranial abnormality. Radiation optimization: All CT scans at this facility use at least one of these dose optimization aure hniques: automated exposure control mA and/or kV adjustment per patient size (includes targeted exam s where dose is matched to clinical indication) or iterative reconstruction.
[2025-05-06 21:20] LABS: LDL Cholesterol 136 mg/dL (< 100)
[2025-05-06 21:21] LABS: Erythrocyte Sedimentation Rate 2 mm/hr (0-20)
[2025-05-06 22:33] VITALS: BP 146/78; PULSE 60; RESP 18; TEMP 98.1; O2SAT 100
[2025-05-06] MEDS: SODIUM CHLOR 0.9% PF (SALINE LOCK) 10ML VIAL/SYR IV SCH (22:42)
[2025-05-06] MEDS: HYDROcodone-ACET 5/325MG TAB PO PRN (22:47)
[2025-05-06] MEDS: LACTATED RINGER'S 1,000 ML IV ONE (23:02)
[2025-05-07] VITALS (9 sets, daily range): BP systolic 120–163; BP diastolic 80–96; PULSE 50–64; RESP 14–18; TEMP 98.5–99.4; O2SAT 97–100
[2025-05-07] MEDS: ONDANSETRON HCL 4 MG/2 ML VIAL IV PRN (06:04)
[2025-05-07 06:40] LABS: Basophils # (auto) 0 10 ^3/uL (0-0.2); Basophils % (auto) 0.3 % (0.0-2.0); Eosinophils # (auto) 0 10 ^3/uL (0-0.8); Eosinophils % (auto) 0.4 % (0.0-7.0); Hematocrit 39.1 % (41.0-53.0); Hemoglobin 13.6 g/dL (13.5-17.5); Lymphocytes # (auto) 1.4 10 ^3/uL (0.4-5.4); Lymphocytes % (auto) 27.2 % (10.0-50.0); Mean Corpuscular Hemoglobin 32.3 pg (28.0-32.0); Mean Corpuscular Hgb Conc. 34.9 g/dL (32.0-36.0); Mean Corpuscular Volume 92.4 fL (80.0-100.0); Monocytes # (auto) 0.3 10 ^3/uL (0-1.3); Monocytes % (auto) 6.2 % (0.0-12.0); Neutrophils # (auto) 3.5 10 ^3/uL (1.6-8.6); Neutrophils % (auto) 65.9 % (37.0-80.0); Nucleated Red Blood Cells % 0.1 %; Platelet Count (auto) 210 10^3/uL (140-450); Red Blood Cells 4.23 10^6/uL (4.5-5.90); Red Cell Distribution Width 13.4 % (11.8-14.3); White Blood Cell 5.3 10^3/uL (4.4-10.8)
[2025-05-07 06:56] LABS: Alanine Aminotransferase 12 U/L (7-40); Albumin 4.3 g/dL (3.2-4.8); Alkaline Phosphatase 50 U/L (46-116); Anion Gap 10 (5-15); Blood Urea Nitrogen 10 mg/dL (9-23); Calcium 9.7 mg/dL (8.7-10.4); Carbon Dioxide 28 mmol/L (20-31); Chloride 102 mmol/L (98-107); Sodium 140 mmol/L (136-145); Total Protein 6.9 g/dL (5.7-8.2)
[2025-05-07 06:57] LABS: Aspartate Aminotransferase 15 U/L (<34); Bilirubin, Total 0.8 mg/dL (0.2-1.0)
[2025-05-07 06:58] LABS: Glucose 123 mg/dL (74-106); Potassium 3.1 mmol/L (3.5-5.1)
[2025-05-07] MEDS: ENOXAPARIN SOD 40 MG/0.4 ML SYRINGE SC SCH (08:31)
--- NOTE | 2025-05-07 12:51 | DVHPN2 ---
Reviewed: Care Plan, H&P, Labs, Medications, Previous Orders, Radiology Changes from previous H/P or p: No Changes Objective Vitals Vital Signs Date Time Temp Pulse Resp B/P (MAP) Pulse Ox O2 Delivery O2 Flow Rate FiO2 05/07/25 09:30 98.7 63 18 148/85 (106) 100 98.7 05/07/25 08:00 Room Air* 0 21 Intake/Output Intake and Output 05/07/25 07:00 Intake Total 1118 ml Balance 1118 ml Intake Oral 118 ml IV Total 1000 ml # Voids 1 Medications Current Medications Medications Dose Ordered Sig/Devan Route Start Time Stop Time Status Last Admin Dose Admin Ceftriaxone Sodium 50 ml @ 100 mls/hr DAILY IV 05/06/25 20:15 05/07/25 08:31 100 MLS/HR Sodium Chloride 10 ml Q8HR IV 05/06/25 22:00 05/07/25 06:04 10 ML Docusate Sodium 100 mg BIDPRN PRN PO 05/06/25 20:15 Acetaminophen 650 mg Q6HP PRN PO 05/06/25 20:15 Acetaminophen/ Hydrocodone Bitart 1 tab Q4HP PRN PO 05/06/25 20:15 05/07/25 08:27 1 TAB Ondansetron HCl 4 mg Q4HP PRN IV 05/06/25 20:15 05/07/25 06:04 4 MG Enoxaparin Sodium 40 mg DAILY SC 05/07/25 10:00 05/07/25 08:31 40 MG Laboratory Results Laboratory Tests 05/07/25 05:55 Chemistry Test 05/06/25 13:41 05/07/25 05:55 Calcium Level 10.0 mg/dL (8.7-10.4) 9.7 mg/dL (8.7-10.4) Albumin 4.3 g/dL (3.2-4.8) Total Protein 6.9 g/dL (5.7-8.2) Lipid panel Test 05/06/25 13:41 Cholesterol Level 188 mg/dL (< 200) HDL Cholesterol 48 mg/dL (40-59) Triglycerides Level 71 mg/dL (< 150) LFT Test 05/07/25 05:55 Alanine Aminotransferase (ALT) 12 U/L (7-40) Alkaline Phosphatase 50 U/L (46-116) Aspartate Amino Transferase (AST) 15 U/L (<34) Total Bilirubin 0.8 mg/dL (0.2-1.0) HgA1c, TSH Test 05/06/25 13:41 Hemoglobin A1c 5.8 % A1C (<5.7) H Urinalysis Test 05/06/25 12:48 Urine Color Light-yellow (Yellow) Urine Clarity Turbid (Clear) H Urine pH 7.0 (5.0-9.0) Urine Specific [place] 1.014 (1.001-1.035) Urine Protein Negative (Negative) Urine Ketones 1+ (Negative) H Urine Blood Negative /uL (Negative) Urine Nitrite Negative (Negative) Urine Bilirubin Negative (Negative) Urine Urobilinogen Normal mg/dL (Negative) Urine Leukocyte Esterase Negative /uL (Negative) Urine RBC 1 /hpf (0 - 3) Urine Microscopic WBC 1 /HPF (0-3) Urine Squamous Epithelial Cells Few /hpf (<5) Urine Bacteria None seen /hpf (None Seen) Urine Hyaline Casts Few /lpf (0 - 2) Urine Mucus Few (None Seen) Urine Glucose Normal mg/dL (Normal) Microbiology Microbiology Date/Time Source Procedure Growth Status 05/06/25 12:48 Voided Urine Urine Culture - Preliminary Resulted Labs and/or images reviewed: Labs reviewed by me, Image(s) reviewed by me Assessment/Plan Assessment/Plan Acute generalized weakness Unintended weight loss: Consult for GI Dr. Chula Abdi Sepsis secondary to urinary tract infection: Blood cultures urine cultures Rocephin Possible bladder outlet obstruction: Consult for Urology Dr. Roberson History of colon polyps status post resection Hepatic hemangioma DJD spine CT head negative Chest x-ray negative Chronic current smoker: Counseling Marijuana abuse Time spent 55 minutes Patient is full code Advanced care planning time 20 mts Plan discussed with: Patient Date of Service: May 07, 2025 Billing Provider: JATIN ROJAS MD Common Visit Codes: [id number] INP/OBS CARE(HIGH) Secondary Visit Codes: [id number] CARE PLAN 30 MINUTES JATIN ROJAS MD May 07, 2025 12:51
--- NOTE | 2025-05-07 13:02 | DVHINCON2 ---
Date of service: May 07, 2025 Referring Physician MD Nadege Reason for Consultation UTI/Cystitis History of Present Illness [facility] [id number] [id number] Mary Costello M.D., Laboratory Side Seam Tender PATIENT: SERGIO MATSON ACCT: [id number] LOC: [facility] U: [id number] AGE/SX: 64/M ROOM: [facility] RE05/06/[address]: EMILIE DESHPANDE MD : 1960 BED: B DIS: STATUS: ADM IN TLOC: SPEC #: [id number] DEE: 05/06/25 STATUS: RES REQ #: [id number] RECD: 05/06/[address]: EMILIE DSEHPANDE MD SOURCE: VOID ENTR: 05/06/25-[address] [facility] [address]: DAVID WAG[facility] ORDERED: [facility] Procedure Result Urine Bacterial Culture Preliminary No growth 64 y/o M, presents to the ED for CC of body pain. Patient states, that he has been experiencing generalized body pain with associated weakness and fatigue [id number]. Patient reports, that he has unexplained weight loss in the past year losing approximately 136 lbs. Patient denies active bleeding, melena, nausea, vomiting, or diarrhea. No other symptoms or modifying factors present at this time. Past Medical History DM, Liver Family History: Patient reports no known family medical history. Social History Smoker: Cigarettes Alcohol: Occasionally Drugs: Marijuana Lives In: Home Allergies: Coded Allergies: NO KNOWN ALLERGIES (Unverified , 10/26/10) Home Meds Active Scripts Gabapentin (Once-Daily) (Gabapentin) 300 Mg Tab, 300 MG PO Q6HP PRN, #60 TAB Prov:LYNDSEY HALEY MD 05/04/25 Potassium Chloride (Potassium Chloride ER) 10 Meq Tab, 10 MEQ PO BID, #30 TAB Prov:LYNDSEY HALEY MD 05/04/25 Sucralfate (CARAFATE) 1 Gm Tab, 1 GM OR Q6H for 30 Days, #120 TAB Prov:MARTY DIOP MD 01/25/25 Pantoprazole Sodium Sesquihydr (Protonix) 40 Mg Tab, 40 MG PO DAILY for 30 Days, #30 TAB Prov:MARTY DIOP MD 01/25/25 Gabapentin (Gabapentin) 300 Mg Cap, 1 CAP PO TID for 30 Days, #90 CAP 5 Refills Prov:JOSE LUIS MOYA MD 08/25/24 Ibuprofen Micronized (Ibuprofen) 600 Mg Tab, 1 TAB PO Q8HPRN PRN, #20 TAB As needed for pain Prov:MODESTO GREEN Q [employer] H[employer]SE HITCH DRIVER 03/03/24 Hydrocodone-Acetaminophen (Hydrocodone Bitartrate/AC 5-325 mg) 1 Tab Tab, 1 TAB PO DAILY for 5 Days, #5 TAB Prov:SUZY GALE MD 10/05/22 Pantoprazole Sodium Sesquihydr (Protonix) 40 Mg Tab, 40 MG PO DAILY for 10 Days, #10 TAB Prov:SUZY GALE MD 10/05/22 Reported Medications Gabapentin (Gabapentin) 600 Mg Tab, 1 TAB PO TID 07/10/24 Metformin Hydrochloride (Metformin Hcl) 850 Mg Tab, 1 TAB PO BID 07/10/24 Current Medications Current Medications Medications (Trade) Dose Ordered Sig/Devan Route PRN Reason Start Time Stop Time Status Last Admin Ceftriaxone Sodium 50 ml @ 100 mls/hr DAILY IV 05/06/25 20:15 05/07/25 08:31 Sodium Chloride (Saline Lock Ns) 10 ml Q8HR IV 05/06/25 22:00 05/07/25 06:04 Docusate Sodium (Colace Capsule) 100 mg BIDPRN PRN PO FOR CONSTIPATION 05/06/25 20:15 Acetaminophen (Tylenol Tablet) 650 mg Q6HP PRN PO PAIN SCALE 1-3 OR TEMP>100.4 05/06/25 20:15 Acetaminophen/ Hydrocodone Bitart ([place] 5/325MG Tab) 1 tab Q4HP PRN PO MODERATE PAIN (4-6 PAIN SCALE) 05/06/25 20:15 05/07/25 08:27 Ondansetron HCl (Zofran) 4 mg Q4HP PRN IV NAUSEA / VOMITING 05/06/25 20:15 05/07/25 06:04 Enoxaparin Sodium (Lovenox) 40 mg DAILY SC 05/07/25 10:00 05/07/25 08:31 Review of Systems As per HPI Vital Signs Vital Signs Date Time Temp Pulse Resp B/P (MAP) Pulse Ox O2 Delivery O2 Flow Rate FiO2 05/07/25 09:30 98.7 63 18 148/85 (106) 100 98.7 05/07/25 08:00 Room Air* 0 21 Physical Exam Vital Signs Vital Signs Date Time Temp Pulse Resp B/P (MAP) Pulse Ox O2 Delivery O2 Flow Rate FiO2 05/06/25 19:26 65 18 98 Room Air* 0 21 21 05/06/25 19:24 99.0 119/79 (92) 99.0 Physical Exam Generalized -64 years old male, covered by blanket, resting in bed. No apparent distress HEENT-atraumatic, normocephalic Heart-regular rate and rhythm Lungs clear to auscultate bilaterally Abdomen soft nontender nondistended Musculoskeletal-no edema cyanosis Neuro-somnolent, strength and sensory intact Labs/Diagnostic Data Labs Test 05/07/25 05:55 05/06/25 13:41 05/06/25 12:48 Range/Units White Blood Count 5.3 4.4-10.8 10^3/uL Red Blood Count 4.23 L 4.5-5.90 10^6/uL Hemoglobin 13.6 13.5-17.5 g/dL Hematocrit 39.1 L 41.0-53.0 % Mean Corpuscular Volume 92.4 80.0-100.0 fL Mean Corpuscular Hemoglobin 32.3 H 28.0-32.0 pg Mean Corpuscular Hemoglobin Concent 34.9 32.0-36.0 g/dL Red Cell Distribution Width 13.4 11.8-14.3 % Platelet Count 210 140-450 10^3/uL Mean Platelet Volume 8.1 6.9-10.8 fL Neutrophils (%) (Auto) 65.9 37.0-80.0 % Lymphocytes (%) (Auto) 27.2 10.0-50.0 % Monocytes (%) (Auto) 6.2 0.0-12.0 % Eosinophils (%) (Auto) 0.4 0.0-7.0 % Basophils (%) (Auto) 0.3 0.0-2.0 % Neutrophils # (Auto) 3.5 1.6-8.6 10 ^3/uL Lymphocytes # (Auto) 1.4 0.4-5.4 10 ^3/uL Monocytes # (Auto) 0.3 0-1.3 10 ^3/uL Eosinophils # (Auto) 0 0-0.8 10 ^3/uL Basophils # (Auto) 0 0-0.2 10 ^3/uL Nucleated Red Blood Cells 0.1 % Sodium Level 140 136-145 mmol/L Potassium Level 3.1 L 3.5-5.1 mmol/L Chloride Level 102 98-107 mmol/L Carbon Dioxide Level 28 20-31 mmol/L Anion Gap 10 5-15 Blood Urea Nitrogen 10 9-23 mg/dL Creatinine 0.77 0.700-1.30 mg/dL Glomerular Filtration Rate Calc 101 >90 mL/min BUN/Creatinine Ratio 13.0 10.0-20.0 Serum Glucose 123 H 74-106 mg/dL Calcium Level 9.7 8.7-10.4 mg/dL Total Bilirubin 0.8 0.2-1.0 mg/dL Aspartate Amino Transferase (AST) 15 <34 U/L Alanine Aminotransferase (ALT) 12 7-40 U/L Alkaline Phosphatase 50 46-116 U/L Total Protein 6.9 5.7-8.2 g/dL Albumin 4.3 3.2-4.8 g/dL Erythrocyte Sedimentation Rate 2 0-20 mm/hr Hemoglobin A1c 5.8 H <5.7 % A1C Creatine Kinase 124 46-171 U/L C-Reactive Protein High Sensitivity < 0.02 <1.0 mg/dL Triglycerides Level 71 < 150 mg/dL Cholesterol Level 188 < 200 mg/dL LDL Cholesterol 136 H < 100 mg/dL HDL Cholesterol 48 40-59 mg/dL Urine Color Light-yellow Yellow Urine Clarity Turbid H Clear Urine pH 7.0 5.0-9.0 Urine Specific [place] 1.014 1.001-1.035 Urine Protein Negative Negative Urine Ketones 1+ H Negative Urine Blood Negative Negative /uL Urine Nitrite Negative Negative Urine Bilirubin Negative Negative Urine Urobilinogen Normal Negative mg/dL Urine Leukocyte Esterase Negative Negative /uL Urine RBC 1 0 - 3 /hpf Urine Microscopic WBC 1 0-3 /HPF Urine Squamous Epithelial Cells Few <5 /hpf Urine Bacteria None seen None Seen /hpf Urine Hyaline Casts Few 0 - 2 /lpf Urine Mucus Few None Seen Urine Glucose Normal Normal mg/dL Microbiology Date/Time Source Procedure Growth Status 05/06/25 12:48 Voided Urine Urine Culture - Preliminary Resulted Assessment "UTI/Cystitis" BPH Plan/Recommendation PSA Outpatient cystoscopy in office TBA Plan discussed with: GRANT Joya MD May 07, 2025 13:02
--- NOTE | 2025-05-07 14:32 | DVHINCON2 ---
GI Consult Consult Note GI consult note Date of Consultation: 05/07/2025 Chief Complaint: Weight loss Referring Physician: Dr. Almita Rojas H&P: 64-year-old male presents to ER with complains of generalized body pain. Also complaining of weakness and fatigue for three months. Having weight loss about 136 lb in the past one year. Patient is status post EGD and colonoscopy 01/23/2025. Diagnosed with gastritis and hyperplastic polyp removal. Pathology reviewed. Patient denies nausea vomiting. No hematemesis, no melena or red blood in stool. Denies diarrhea Past Medical History: DM, liver Past Surgical History: Social History: Smoker: Cigarettes Alcohol: Occasionally Drugs: Marijuana Lives In: Home Family History: Noncontributory Review of Systems: Constitutional: no fever, chill, weight loss HEENT: no eye pain, no hearing loss, no oral lesion, no scleral icterus Heart: no chest pain, no chest pressure Lung: no cough, no dyspnea with exertion Abdomen: see HPI Musculoskeletal: Generalized body pain Physical exam: General: NAD, AAOX3 Chest: lung lee clear to auscultation Heart: RRR, no murmur Abdomen: non-distended, no tenderness to palpation, +BS Labs: Chemistry Test 05/06/25 13:41 05/07/25 05:55 Calcium Level 10.0 mg/dL (8.7-10.4) 9.7 mg/dL (8.7-10.4) Albumin 4.3 g/dL (3.2-4.8) Total Protein 6.9 g/dL (5.7-8.2) Lipid panel Test 05/06/25 13:41 Cholesterol Level 188 mg/dL (< 200) HDL Cholesterol 48 mg/dL (40-59) Triglycerides Level 71 mg/dL (< 150) LFT Test 05/07/25 05:55 Alanine Aminotransferase (ALT) 12 U/L (7-40) Alkaline Phosphatase 50 U/L (46-116) Aspartate Amino Transferase (AST) 15 U/L (<34) Total Bilirubin 0.8 mg/dL (0.2-1.0) HgA1c, TSH Test 05/06/25 13:41 Hemoglobin A1c 5.8 % A1C (<5.7) H Urinalysis Test 05/06/25 12:48 Urine Color Light-yellow (Yellow) Urine Clarity Turbid (Clear) H Urine pH 7.0 (5.0-9.0) Urine Specific [place] 1.014 (1.001-1.035) Urine Protein Negative (Negative) Urine Ketones 1+ (Negative) H Urine Blood Negative /uL (Negative) Urine Nitrite Negative (Negative) Urine Bilirubin Negative (Negative) Urine Urobilinogen Normal mg/dL (Negative) Urine Leukocyte Esterase Negative /uL (Negative) Urine RBC 1 /hpf (0 - 3) Urine Microscopic WBC 1 /HPF (0-3) Urine Squamous Epithelial Cells Few /hpf (<5) Urine Bacteria None seen /hpf (None Seen) Urine Hyaline Casts Few /lpf (0 - 2) Urine Mucus Few (None Seen) Urine Glucose Normal mg/dL (Normal) Microbiology Microbiology Date/Time Source Procedure Growth Status 05/06/25 12:48 Voided Urine Urine Culture - Preliminary Resulted Imaging: CT abdomen pelvis IMPRESSION: 1. Compared to recent prior CT performed with contrast no significant change. There is mild diffuse bladder wall thickening. This could be due to mild bladder outlet obstruction or cystitis. Evaluation of bowel limited lack of IV and oral contrast MRCP 01/19/2025 IMPRESSION: 1. No cholelithiasis or choledocholithiasis. The common bile duct is normal in caliber for patient's age measuring 6 mm. 2. Prominent main pancreatic duct, 6.7 mm in caliber. No discrete pancreatic lesion is identified in this unenhanced study. Suggest further evaluation with abdominal MRI without and with IV contrast utilizing a pancreatic protocol. No discrete pancreatic lesion was seen in accompanying CT scan. Suggest correlation with ERCP. 3. Multiple hepatic hemangiomas. 4. Trabeculated bladder dome likely reflects sequela of chronic ladder outlet obstruction. Assessment: Generalized weakness Unintentional weight loss Sepsis History of colon polyp Gastritis Abnormal MRI results Plan: Discussed with Dr. Abdi MRI abdomen with pancreatic protocol CA 19-9 Monitor lab We will continue to follow patient Thank you for this consult Date of Service: May 07, 2025 Billing Provider: HERNAN ROJAS Common Visit Codes: CONSULT ONLY Consultation Codes: [id number] CONSULT <45MIN HERNAN ROJAS May 07, 2025 14:32
[2025-05-07] MEDS ORDERED: GADOTERATE MEG 10 MMOL/20ml INJ (0.5MMOL/ml) IV ONE (16:11)
[2025-05-07] MEDS: POTASSIUM CHL 20MEQ/100ML 100 ML IV SCH (18:45)
[2025-05-07] MEDS: MAGNESIUM SULFATE 1GM/100ML 100 ML IV ONE (20:30)
[2025-05-08] VITALS (9 sets, daily range): BP systolic 111–165; BP diastolic 17–89; PULSE 52–72; RESP 14–19; TEMP 97.3–98.1; O2SAT 97–100
[2025-05-08 06:19] LABS: Basophils # (auto) 0 10 ^3/uL (0-0.2); Basophils % (auto) 0.2 % (0.0-2.0); Eosinophils # (auto) 0 10 ^3/uL (0-0.8); Eosinophils % (auto) 0.5 % (0.0-7.0); Hematocrit 40.8 % (41.0-53.0); Hemoglobin 14.4 g/dL (13.5-17.5); Lymphocytes # (auto) 1.8 10 ^3/uL (0.4-5.4); Lymphocytes % (auto) 30.3 % (10.0-50.0); Mean Corpuscular Hemoglobin 32.5 pg (28.0-32.0); Mean Corpuscular Hgb Conc. 35.4 g/dL (32.0-36.0); Mean Corpuscular Volume 91.8 fL (80.0-100.0); Monocytes # (auto) 0.4 10 ^3/uL (0-1.3); Monocytes % (auto) 6.2 % (0.0-12.0); Neutrophils # (auto) 3.8 10 ^3/uL (1.6-8.6); Neutrophils % (auto) 62.8 % (37.0-80.0); Platelet Count (auto) 217 10^3/uL (140-450); Red Blood Cells 4.44 10^6/uL (4.5-5.90); Red Cell Distribution Width 13.4 % (11.8-14.3)
[2025-05-08 06:40] LABS: Albumin 4.5 g/dL (3.2-4.8); Alkaline Phosphatase 54 U/L (46-116); Anion Gap 9 (5-15); Aspartate Aminotransferase 15 U/L (<34); BUN/Creatinine Ratio 12.5 (10.0-20.0); Bilirubin, Total 0.8 mg/dL (0.2-1.0); Calcium 9.3 mg/dL (8.7-10.4); Carbon Dioxide 28 mmol/L (20-31); Chloride 99 mmol/L (98-107); Sodium 136 mmol/L (136-145)
[2025-05-08 06:45] LABS: Alanine Aminotransferase 9 U/L (7-40); Blood Urea Nitrogen 9 mg/dL (9-23); Glucose 147 mg/dL (74-106); Potassium 3.5 mmol/L (3.5-5.1)
[2025-05-08] MEDS: PROCHLORPERAZINE EDISYLATE 5 MG/ML 2ML VIAL IV ONE (08:13)
--- NOTE | 2025-05-08 08:39 | DVHPN2 ---
Reviewed: Care Plan, H&P, Labs, Medications, Previous Orders, Radiology Changes from previous H/P or p: No Changes Objective Vitals Vital Signs Date Time Temp Pulse Resp B/P (MAP) Pulse Ox O2 Delivery O2 Flow Rate FiO2 05/08/25 07:58 17 Room Air* 0 21 05/08/25 05:00 97.7 67 111/62 (78) 100 97.7 Intake/Output Intake and Output 05/08/25 07:00 Intake Total 450 ml Output Total 520 ml Balance -70 ml Intake Oral 100 ml IV Total 350 ml Output Urine Total 400 ml Stool Total 0 ml Emesis 120 ml # Voids 2 Medications Current Medications Medications Dose Ordered Sig/Devan Route Start Time Stop Time Status Last Admin Dose Admin Ceftriaxone Sodium 50 ml @ 100 mls/hr DAILY IV 05/06/25 20:15 05/07/25 08:31 100 MLS/HR Sodium Chloride 10 ml Q8HR IV 05/06/25 22:00 05/08/25 05:58 10 ML Docusate Sodium 100 mg BIDPRN PRN PO 05/06/25 20:15 Acetaminophen 650 mg Q6HP PRN PO 05/06/25 20:15 Acetaminophen/ Hydrocodone Bitart 1 tab Q4HP PRN PO 05/06/25 20:15 05/08/25 03:33 1 TAB Ondansetron HCl 4 mg Q4HP PRN IV 05/06/25 20:15 05/08/25 03:33 4 MG Enoxaparin Sodium 40 mg DAILY SC 05/07/25 10:00 05/07/25 08:31 40 MG Laboratory Results Laboratory Tests 05/08/25 05:36 Chemistry Test 05/07/25 19:38 05/08/25 05:36 Magnesium Level 1.9 mg/dL (1.6-2.6) Albumin 4.5 g/dL (3.2-4.8) Calcium Level 9.3 mg/dL (8.7-10.4) Total Protein 7.0 g/dL (5.7-8.2) LFT Test 05/08/25 05:36 Alanine Aminotransferase (ALT) 9 U/L (7-40) Alkaline Phosphatase 54 U/L (46-116) Aspartate Amino Transferase (AST) 15 U/L (<34) Total Bilirubin 0.8 mg/dL (0.2-1.0) Urinalysis Test 05/06/25 12:48 Urine Color Light-yellow (Yellow) Urine Clarity Turbid (Clear) H Urine pH 7.0 (5.0-9.0) Urine Specific [place] 1.014 (1.001-1.035) Urine Protein Negative (Negative) Urine Ketones 1+ (Negative) H Urine Blood Negative /uL (Negative) Urine Nitrite Negative (Negative) Urine Bilirubin Negative (Negative) Urine Urobilinogen Normal mg/dL (Negative) Urine Leukocyte Esterase Negative /uL (Negative) Urine RBC 1 /hpf (0 - 3) Urine Microscopic WBC 1 /HPF (0-3) Urine Squamous Epithelial Cells Few /hpf (<5) Urine Bacteria None seen /hpf (None Seen) Urine Hyaline Casts Few /lpf (0 - 2) Urine Mucus Few (None Seen) Urine Glucose Normal mg/dL (Normal) Microbiology Microbiology Date/Time Source Procedure Growth Status 05/06/25 12:48 Voided Urine Urine Culture - Preliminary Resulted Labs and/or images reviewed: Labs reviewed by me, Image(s) reviewed by me Assessment/Plan Assessment/Plan Acute generalized weakness Unintended weight loss: Consult for GI Dr. Chula Abdi treated, CA 19-9 normal, MRI abdomen with pancreatic protocol pending Sepsis secondary to urinary tract infection: Blood cultures pending, urine cultures pending, continue Rocephin Possible bladder outlet obstruction: Consult for Urology Dr. Roberson appreciated, PSA normal, advised outpatient cystoscopy History of colon polyps status post resection Hepatic hemangioma DJD L spine CT head negative Chest x-ray negative Chronic current smoker: Counseling Marijuana abuse Time spent 50 minutes Patient is full code Advanced care planning time 20 mts TSH pending Plan discussed with: Patient My Orders Orders - JATIN ROJAS MD Procedure Category Date Status Time * Urology Consult CONS 05/07/25 Transmitted 12:53 * Gi [facility] Supervisor Sample Preparation CONS 05/07/25 Transmitted 12:56 Date of Service: May 08, 2025 Billing Provider: JATIN ROJAS MD Common Visit Codes: [id number] INP/OBS CARE(HIGH) JATIN ROJAS MD May 08, 2025 08:39
--- NOTE | 2025-05-08 10:10 | DVH ---
CLINICAL HISTORY: Abdominal pain. Weight loss. TECHNIQUE: Multi sequence multi planar MRI images of the abdomen were obtained prior to and after th e uneventful administration of 15 mL Clariscan contrast. COMPARISON: CT dated 05/06/2025. Prior MRI dated 01/22/2025. FINDINGS: Mild hepatic steatosis. Intraosseous hemangioma in the inferior right hepatic lobe measure s up to 3 cm, similar to prior exams. Small hemangioma near the hepatic dome measures up to 1 cm, unc hanged. 1 cm hemangioma in the posterior aspect of the right hepatic lobe, also stable. The spleen, p ancreas, and adrenal glands appear unremarkable, although somewhat limited evaluation due to motion a rtifact. Small cyst in the inferior pole of the right kidney. No hydronephrosis. No gallstones visual ized in the gallbladder. No biliary ductal dilatation. No abdominal aortic aneurysm. IMPRESSION: 1. Motion limited study. 2. Stable liver lesions, most consistent with hepatic hemangiomas. Mild hepatic steatosis also noted. Additional nonacute findings as described above.
--- NOTE | 2025-05-08 13:59 | DVHPN2 ---
Subjective For changes Reviewed: Care Plan, H&P, Labs, Medications, Previous Orders, Radiology Changes from previous H/P or p: No Changes Objective Vitals Vital Signs Date Time Temp Pulse Resp B/P (MAP) Pulse Ox O2 Delivery O2 Flow Rate FiO2 05/08/25 09:00 97.8 71 16 119/76 (90) 100 97.8 05/08/25 07:58 Room Air* 0 21 Intake/Output Intake and Output 05/08/25 07:00 Intake Total 450 ml Output Total 520 ml Balance -70 ml Intake Oral 100 ml IV Total 350 ml Output Urine Total 400 ml Stool Total 0 ml Emesis 120 ml # Voids 2 General Appearance: Alert, Oriented X3, Cooperative, No acute distress, mild distress, moderate distress, severe distress, Other Lungs: Clear to auscultation, Normal air movement, Other Cardiovascular: Regular rate, Normal S1, Normal S2, No murmurs, Gallops, Rubs, Other Abdomen: Normal bowel sounds, Soft, No tenderness, No hepatospenomegaly, No masses, Other Medications Current Medications Medications Dose Ordered Sig/Devan Route Start Time Stop Time Status Last Admin Dose Admin Ceftriaxone Sodium 50 ml @ 100 mls/hr DAILY IV 05/06/25 20:15 05/08/25 09:45 100 MLS/HR Sodium Chloride 10 ml Q8HR IV 05/06/25 22:00 05/08/25 13:48 10 ML Docusate Sodium 100 mg BIDPRN PRN PO 05/06/25 20:15 Acetaminophen 650 mg Q6HP PRN PO 05/06/25 20:15 Acetaminophen/ Hydrocodone Bitart 1 tab Q4HP PRN PO 05/06/25 20:15 05/08/25 09:45 1 TAB Ondansetron HCl 4 mg Q4HP PRN IV 05/06/25 20:15 05/08/25 03:33 4 MG Enoxaparin Sodium 40 mg DAILY SC 05/07/25 10:00 05/07/25 08:31 40 MG Laboratory Results Laboratory Tests 05/08/25 05:36 Chemistry Test 05/07/25 19:38 05/08/25 05:36 Magnesium Level 1.9 mg/dL (1.6-2.6) Albumin 4.5 g/dL (3.2-4.8) Calcium Level 9.3 mg/dL (8.7-10.4) Total Protein 7.0 g/dL (5.7-8.2) LFT Test 05/08/25 05:36 Alanine Aminotransferase (ALT) 9 U/L (7-40) Alkaline Phosphatase 54 U/L (46-116) Aspartate Amino Transferase (AST) 15 U/L (<34) Total Bilirubin 0.8 mg/dL (0.2-1.0) HgA1c, TSH Test 05/08/25 05:36 Thyroid Stimulating Hormone (TSH) 1.35 uIU/mL (0.55-4.78) Urinalysis Test 05/06/25 12:48 Urine Color Light-yellow (Yellow) Urine Clarity Turbid (Clear) H Urine pH 7.0 (5.0-9.0) Urine Specific [place] 1.014 (1.001-1.035) Urine Protein Negative (Negative) Urine Ketones 1+ (Negative) H Urine Blood Negative /uL (Negative) Urine Nitrite Negative (Negative) Urine Bilirubin Negative (Negative) Urine Urobilinogen Normal mg/dL (Negative) Urine Leukocyte Esterase Negative /uL (Negative) Urine RBC 1 /hpf (0 - 3) Urine Microscopic WBC 1 /HPF (0-3) Urine Squamous Epithelial Cells Few /hpf (<5) Urine Bacteria None seen /hpf (None Seen) Urine Hyaline Casts Few /lpf (0 - 2) Urine Mucus Few (None Seen) Urine Glucose Normal mg/dL (Normal) Microbiology Microbiology Date/Time Source Procedure Growth Status 05/06/25 12:48 Voided Urine Urine Culture - Final Complete Labs and/or images reviewed: Labs reviewed by me, Image(s) reviewed by me Assessment/Plan Assessment/Plan Generalized weakness Unintentional weight loss Sepsis History of colon polyp Gastritis Hepatic hemangiomas Constipation Plan Discussed with Dr. Jin Walden MiraLax Monitor labs We will continue to follow patient Plan discussed with: Patient My Orders Orders - HERNAN ROJAS Procedure Category Date Status Time Mri Abdomen [place] MRI 05/08/25 Resulted 14:23 Polyethylene Glycol PHA 05/08/25 Logged 17g Powder (Miralax 14:00 Date of Service: May 08, 2025 Billing Provider: HERNAN ROJAS Common Visit Codes: [id number] INP/OBS CARE(HIGH) HERNAN ROJAS May 08, 2025 13:59
[2025-05-08] MEDS: POLYETHYLENE GLYCOL 17 GM PWDR PO ONE (14:07)
[2025-05-08] MEDS: METOCLOPRAMIDE HCL 5MG/ml INJ 2ml VIAL IV PRN (18:17)
[2025-05-09] MEDS: DOCUSATE SOD 100 MG CAP PO PRN (04:56)
[2025-05-09 05:00] VITALS: BP 146/91; PULSE 69; RESP 18; TEMP 98.5; O2SAT 100
[2025-05-09 07:23] LABS: Basophils # (auto) 0 10 ^3/uL (0-0.2); Basophils % (auto) 0.2 % (0.0-2.0); Eosinophils # (auto) 0 10 ^3/uL (0-0.8); Eosinophils % (auto) 0.7 % (0.0-7.0); Hematocrit 41.1 % (41.0-53.0); Hemoglobin 14.3 g/dL (13.5-17.5); Lymphocytes # (auto) 1.4 10 ^3/uL (0.4-5.4); Mean Corpuscular Hemoglobin 32.1 pg (28.0-32.0); Mean Corpuscular Hgb Conc. 34.9 g/dL (32.0-36.0); Monocytes # (auto) 0.4 10 ^3/uL (0-1.3); Monocytes % (auto) 6.3 % (0.0-12.0); Neutrophils # (auto) 3.8 10 ^3/uL (1.6-8.6); Neutrophils % (auto) 67.8 % (37.0-80.0); Nucleated Red Blood Cells % 0.1 %; Platelet Count (auto) 214 10^3/uL (140-450); Red Blood Cells 4.47 10^6/uL (4.5-5.90); Red Cell Distribution Width 13.2 % (11.8-14.3); White Blood Cell 5.7 10^3/uL (4.4-10.8)
[2025-05-09 07:31] LABS: Albumin 4.4 g/dL (3.2-4.8); Alkaline Phosphatase 48 U/L (46-116); Anion Gap 11 (5-15); Aspartate Aminotransferase 14 U/L (<34); BUN/Creatinine Ratio 11.4 (10.0-20.0); Blood Urea Nitrogen 9 mg/dL (9-23); Calcium 9.9 mg/dL (8.7-10.4); Carbon Dioxide 28 mmol/L (20-31); Chloride 101 mmol/L (98-107); Sodium 140 mmol/L (136-145); Total Protein 6.9 g/dL (5.7-8.2)
[2025-05-09 07:32] LABS: Bilirubin, Total 0.8 mg/dL (0.2-1.0)
[2025-05-09 07:33] LABS: Alanine Aminotransferase < 9 U/L (7-40); Glucose 116 mg/dL (74-106); Potassium 3.4 mmol/L (3.5-5.1)
[2025-05-09 08:00] VITALS: PULSE 68; RESP 18; O2SAT 100
[2025-05-09 09:00] VITALS: BP 135/93; PULSE 64; RESP 16; TEMP 97.5; O2SAT 99
--- NOTE | 2025-05-09 09:14 | DVHPN2 ---
Reviewed: Care Plan, H&P, Labs, Medications, Previous Orders, Radiology Changes from previous H/P or p: No Changes Objective Vitals Vital Signs Date Time Temp Pulse Resp B/P (MAP) Pulse Ox O2 Delivery O2 Flow Rate FiO2 05/09/25 05:00 98.5 69 18 146/91 (109) 100 98.5 05/08/25 20:00 Room Air* 0 21 Intake/Output Intake and Output 05/09/25 07:00 Intake Total 740 ml Output Total 650 ml Balance 90 ml Intake Oral 740 ml Output Urine Total 650 ml # Voids 7 General Appearance: Alert, Oriented X3, Cooperative, No acute distress, mild distress, moderate distress, severe distress, Other Lungs: Clear to auscultation, Normal air movement, Other Cardiovascular: Regular rate, Normal S1, Normal S2, No murmurs, Gallops, Rubs, Other Abdomen: Normal bowel sounds, Soft, No tenderness, No hepatospenomegaly, No masses, Other Medications Current Medications Medications Dose Ordered Sig/Devan Route Start Time Stop Time Status Last Admin Dose Admin Ceftriaxone Sodium 50 ml @ 100 mls/hr DAILY IV 05/06/25 20:15 05/08/25 09:45 100 MLS/HR Sodium Chloride 10 ml Q8HR IV 05/06/25 22:00 05/09/25 04:55 10 ML Docusate Sodium 100 mg BIDPRN PRN PO 05/06/25 20:15 05/09/25 04:56 100 MG Acetaminophen 650 mg Q6HP PRN PO 05/06/25 20:15 Acetaminophen/ Hydrocodone Bitart 1 tab Q4HP PRN PO 05/06/25 20:15 05/09/25 04:52 1 TAB Ondansetron HCl 4 mg Q4HP PRN IV 05/06/25 20:15 Hold 05/08/25 14:07 4 MG Enoxaparin Sodium 40 mg DAILY SC 05/07/25 10:00 05/07/25 08:31 40 MG Megestrol Acetate 400 mg DAILY PO 05/09/25 10:00 Metoclopramide HCl 5 mg Q8HPRN PRN IV 05/08/25 14:15 05/09/25 04:51 5 MG Laboratory Results Laboratory Tests 05/09/25 06:30 Chemistry Test 05/09/25 06:30 Albumin 4.4 g/dL (3.2-4.8) Calcium Level 9.9 mg/dL (8.7-10.4) Total Protein 6.9 g/dL (5.7-8.2) LFT Test 05/09/25 06:30 Alanine Aminotransferase (ALT) < 9 U/L (7-40) Alkaline Phosphatase 48 U/L (46-116) Aspartate Amino Transferase (AST) 14 U/L (<34) Total Bilirubin 0.8 mg/dL (0.2-1.0) Urinalysis Test 05/06/25 12:48 Urine Color Light-yellow (Yellow) Urine Clarity Turbid (Clear) H Urine pH 7.0 (5.0-9.0) Urine Specific [place] 1.014 (1.001-1.035) Urine Protein Negative (Negative) Urine Ketones 1+ (Negative) H Urine Blood Negative /uL (Negative) Urine Nitrite Negative (Negative) Urine Bilirubin Negative (Negative) Urine Urobilinogen Normal mg/dL (Negative) Urine Leukocyte Esterase Negative /uL (Negative) Urine RBC 1 /hpf (0 - 3) Urine Microscopic WBC 1 /HPF (0-3) Urine Squamous Epithelial Cells Few /hpf (<5) Urine Bacteria None seen /hpf (None Seen) Urine Hyaline Casts Few /lpf (0 - 2) Urine Mucus Few (None Seen) Urine Glucose Normal mg/dL (Normal) Microbiology Microbiology Date/Time Source Procedure Growth Status 05/06/25 12:48 Voided Urine Urine Culture - Final Complete Labs and/or images reviewed: Labs reviewed by me, Image(s) reviewed by me Assessment/Plan Assessment/Plan Acute generalized weakness Unintended weight loss: Consult for GI Dr. Chula Abdi appreciated, CA 19-9 normal, MRI abdomen with pancreatic protocol pending Sepsis secondary to urinary tract infection: Blood cultures pending pending, urine cultures negative, continue Rocephin Possible bladder outlet obstruction: Consult for Urology Dr. Roberson appreciated, PSA normal, advised outpatient cystoscopy History of colon polyps status post resection Hepatic hemangiomas by CT abdomen pelvis Hepatic hemangioma DJD L spine CT head negative Constipation MiraLax Chest x-ray negative Chronic current smoker: Counseling Marijuana abuse TSH normal CA 19-9, AFP and CEA all negative Time spent 50 minutes Patient is full code Advanced care planning time 20 mts Plan discussed with: Patient Date of Service: May 09, 2025 Billing Provider: JATIN ROJAS MD Common Visit Codes: [id number] INP/OBS CARE(HIGH) JATIN ROJAS MD May 09, 2025 09:14
[2025-05-09] MEDS ORDERED: ZOFR4T PO (09:42)
[2025-05-09] MEDS ORDERED: POLY335015 PO (09:42)
--- NOTE | 2025-05-09 09:48 | DVHDS2 ---
Discharge Summary Date of Admission May 06, 2025 at 20:14 Date of Discharge: May 09, 2025 Admitting Diagnosis Generalized weakness Wounds: None Labs/Diagnostic Data: Laboratory Results Test 05/09/25 06:30 05/08/25 05:36 05/07/25 19:38 05/07/25 14:50 White Blood Count 5.7 10^3/uL (4.4-10.8) Red Blood Count 4.47 10^6/uL (4.5-5.90) Hemoglobin 14.3 g/dL (13.5-17.5) Hematocrit 41.1 % (41.0-53.0) Mean Corpuscular Volume 92.0 fL (80.0-100.0) Mean Corpuscular Hemoglobin 32.1 pg (28.0-32.0) Mean Corpuscular Hemoglobin Concent 34.9 g/dL (32.0-36.0) Red Cell Distribution Width 13.2 % (11.8-14.3) Platelet Count 214 10^3/uL (140-450) Mean Platelet Volume 8.1 fL (6.9-10.8) Neutrophils (%) (Auto) 67.8 % (37.0-80.0) Lymphocytes (%) (Auto) 25.0 % (10.0-50.0) Monocytes (%) (Auto) 6.3 % (0.0-12.0) Eosinophils (%) (Auto) 0.7 % (0.0-7.0) Basophils (%) (Auto) 0.2 % (0.0-2.0) Neutrophils # (Auto) 3.8 10 ^3/uL (1.6-8.6) Lymphocytes # (Auto) 1.4 10 ^3/uL (0.4-5.4) Monocytes # (Auto) 0.4 10 ^3/uL (0-1.3) Eosinophils # (Auto) 0 10 ^3/uL (0-0.8) Basophils # (Auto) 0 10 ^3/uL (0-0.2) Nucleated Red Blood Cells 0.1 % Sodium Level 140 mmol/L (136-145) Potassium Level 3.4 mmol/L (3.5-5.1) Chloride Level 101 mmol/L (98-107) Carbon Dioxide Level 28 mmol/L (20-31) Anion Gap 11 (5-15) Blood Urea Nitrogen 9 mg/dL (9-23) Creatinine 0.79 mg/dL (0.700-1.30) Glomerular Filtration Rate Calc 100 mL/min (>90) BUN/Creatinine Ratio 11.4 (10.0-20.0) Serum Glucose 116 mg/dL (74-106) Calcium Level 9.9 mg/dL (8.7-10.4) Total Bilirubin 0.8 mg/dL (0.2-1.0) Aspartate Amino Transferase (AST) 14 U/L (<34) Alanine Aminotransferase (ALT) < 9 U/L (7-40) Alkaline Phosphatase 48 U/L (46-116) Total Protein 6.9 g/dL (5.7-8.2) Albumin 4.4 g/dL (3.2-4.8) Tumor Marker Alpha Fetoprotein <1.8 ng/mL (0.0-8.4) Carcinoembryonic Antigen 1.35 ng/mL (<=5.0) Thyroid Stimulating Hormone (TSH) 1.35 uIU/mL (0.55-4.78) Magnesium Level 1.9 mg/dL (1.6-2.6) CA 19-9 Antigen 9 U/mL (0-35) Test 05/07/25 05:55 05/06/25 13:41 05/06/25 12:48 Prostate Specific Antigen 0.14 ng/mL (0.0-4.0) Erythrocyte Sedimentation Rate 2 mm/hr (0-20) Hemoglobin A1c 5.8 % A1C (<5.7) Creatine Kinase 124 U/L (46-171) C-Reactive Protein High Sensitivity < 0.02 mg/dL (<1.0) Triglycerides Level 71 mg/dL (< 150) Cholesterol Level 188 mg/dL (< 200) LDL Cholesterol 136 mg/dL (< 100) HDL Cholesterol 48 mg/dL (40-59) Urine Color Light-yellow (Yellow) Urine Clarity Turbid (Clear) Urine pH 7.0 (5.0-9.0) Urine Specific [place] 1.014 (1.001-1.035) Urine Protein Negative (Negative) Urine Ketones 1+ (Negative) Urine Blood Negative /uL (Negative) Urine Nitrite Negative (Negative) Urine Bilirubin Negative (Negative) Urine Urobilinogen Normal mg/dL (Negative) Urine Leukocyte Esterase Negative /uL (Negative) Urine RBC 1 /hpf (0 - 3) Urine Microscopic WBC 1 /HPF (0-3) Urine Squamous Epithelial Cells Few /hpf (<5) Urine Bacteria None seen /hpf (None Seen) Urine Hyaline Casts Few /lpf (0 - 2) Urine Mucus Few (None Seen) Urine Glucose Normal mg/dL (Normal) Other Laboratory Tests 05/09/25 06:30 Brief Hx & Hospital Course: 64-year-old male admitted for generalized weakness and unintended weight loss. Patient has had urinary tract infection blood cultures pending urine cultures negative treated with Rocephin possible bladder outlet obstruction seen by Urology Dr. Roberson PSA normal advised outpatient cystoscopy. History of colon polyps status post resection CT abdomen pelvis showed hepatic hemangiomas which is a known condition for him CT head negative chest x-ray negative. Tumor markers CA 19-9, AFP and CEA negative. CT abdomen pelvis without contrast showed constipation treated with MiraLax GI consult by Dr. Chula Abdi. Patient had mild nausea treated with Zofran and constipation treated with MiraLax. All workup is negative. Being discharged home prescription for Zofran and MiraLax transmitted to the pharmacy . at the bedside agrees with the discharge plan. Discharged home in stable condition he was advised to follow up with his primary Dr. GI Dr. Chula Abdi in two weeks. Follow up with the Urology Dr. Roberson in two weeks for cystoscopy Consults/Reason for consult [facility] Operations or Procedures CT abdomen pelvis without contrast Condition at Discharge: Fair Final Diagnosis/Problems List Acute generalized weakness Unintended weight loss: Consult for GI Dr. Chula Abdi appreciated, CA 19-9 normal, MRI abdomen with pancreatic protocol pending Sepsis secondary to urinary tract infection: Blood cultures pending pending, urine cultures negative, continue Rocephin Possible bladder outlet obstruction: Consult for Urology Dr. Roberson appreciated, PSA normal, advised outpatient cystoscopy History of colon polyps status post resection Hepatic hemangiomas by CT abdomen pelvis Hepatic hemangioma DJD L spine CT head negative Constipation MiraLax Chest x-ray negative Chronic current smoker: Counseling Marijuana abuse TSH normal CA 19-9, AFP and CEA all negative Discharge Disposition: Home Discharge Instruct/Medications Diet: Regular Activity: Light activity Follow Up/Referral: Resume all previous home medications Follow up with the primary Dr in one week Follow up with GI Dr. Chula Abdi in two weeks Medications: MiraLax Zofran Transmitted to [facility] (Time taken for discharge summary 39 minutes) Discharge Statement: "Patient was advised to return to the ER or call 911 if any headaches, dizziness, shortness of breath, chest pain, abdominal pain, bleeding, fevers, or worsening of medical condition. Patient was counseled about treatment plan, medications, possible side effects, patientverbalized understanding. All questions were answered to the best of my ability. This discharge took greater then 30 minutes in planning, reviewing documentation, counseling the patient, and discussing with other team members." ASSESSMENT ASSESSMENT Hospital Course Improved Assessment Acute generalized weakness Unintended weight loss: Consult for GI Dr. Chula Abdi appreciated, CA 19-9 normal, MRI abdomen with pancreatic protocol pending Sepsis secondary to urinary tract infection: Blood cultures pending pending, urine cultures negative, continue Rocephin Possible bladder outlet obstruction: Consult for Urology Dr. Roberson appreciated, PSA normal, advised outpatient cystoscopy History of colon polyps status post resection Hepatic hemangiomas by CT abdomen pelvis Hepatic hemangioma DJD L spine CT head negative Constipation MiraLax Chest x-ray negative Chronic current smoker: Counseling Marijuana abuse TSH normal CA 19-9, AFP and CEA all negative Date of Service: May 09, 2025 Billing Provider: JATIN ROJAS MD Common Visit Codes: [id number] DISCH DAY >30min JATIN ROJAS MD May 09, 2025 09:48
[2025-05-09] MEDS: POLYETHYLENE GLYCOL 17 GM PWDR PO ONE (11:12)
[2025-05-09] MEDS: MEGESTROL ACET 400MG/10ML ORAL SUSP PO SCH (11:12)
== END 2025-05-09 12:00 | disposition home or self-care (01) | DRG 720 ==
LOC: ER 12:26 → OVERFLOW 20:14 → EAST 21:42 → TELE-EAST 05-07 20:03
PROVIDERS: ADMIT Family Medicine; ATTEND Family Medicine
DX: A41.9 Sepsis, unspecified organism (principal); R62.7 Adult failure to thrive; N30.90 Cystitis, unspecified without hematuria; F12.10 Cannabis abuse, uncomplicated; K29.70 Gastritis, unspecified, without bleeding; M47.816 Spondylosis without myelopathy or radiculopathy, lumbar region; D18.09 Hemangioma of other sites; N40.1 Benign prostatic hyperplasia with lower urinary tract symptoms; R63.4 Abnormal weight loss; K59.00 Constipation, unspecified; N32.0 Bladder-neck obstruction; F17.210 Nicotine dependence, cigarettes, uncomplicated; E11.9 Type 2 diabetes mellitus without complications; Z86.0100 Personal history of colon polyps, unspecified; Z68.1 Body mass index [BMI] 19.9 or less, adult; Z79.899 Other long term (current) drug therapy; Z71.6 Tobacco abuse counseling
CPT/HCPCS: 36415; 70450; 71045; 74176; 74183; 80048; 80053; 80061; 81001; 82105; 82378; 82550; 83036; 83735; 84132; 84153; 84443; 85025; 85652; 86141; 86301; 87040; 87086; 96361; 96365; 96375; G0378; J2405; J3480